=== PATIENT | male | born 1965 | race Hispanic/Latino ===

== ENCOUNTER 2019-09-13 15:23 | Observation (INO) | payer SELFPAY ==
[~2019-09-13] VITALS: Ht 162.6 cm; Wt 89.8 kg
--- NOTE | 2019-09-13 16:24 | Diagnostic Imaging Report ---
EXAMINATION: CHEST SINGLE (PORTABLE) INDICATION: Chest pain COMPARISON: None FINDINGS: AP view Low lung volumes with accentuation of the pulmonary vasculature and cardiac silhouette. Likely mild cardiomegaly. Fullness of the pulmonary vasculature suggests pulmonary venous congestion. No focal airspace consolidation. Questionable small right pleural effusion. No pneumothorax. No acute osseous abnormality. IMPRESSION: Findings suggestive of early heart failure. Signed by: Suraj Goodwin MD on 09/13/2019 4:20 PM
[2019-09-13 16:58] LABS: BASOPHILS % 0.6 % (0.0-1.0); EOSINOPHILS # (AUTO) 0.1 (0.0-0.4); HEMATOCRIT 32.8 % (38.2-49.6); HEMOGLOBIN 10.6 g/dL (14.0-18.0); LYMPHOCYTES % 29.5 % (18.0-39.1); MEAN CORPUSCULAR HGB CONC 32.3 g/dL (31-35); MEAN CORPUSCULAR VOLUME 92.9 fL (81-99); MONOCYTES # (AUTO) 0.7 (0.2-0.8); MONOCYTES % 10.5 % (4.4-11.3); NEUTROPHILS % 57.1 % (38.7-80.0); PLATELET COUNT 112 x10e3/uL (140-360); RED BLOOD COUNT 3.53 x10e6/uL (4.3-5.7); RED CELL DISTRIBUTION WIDTH 15.4 % (11.7-14.4)
[2019-09-13] MEDS ORDERED: ASPIRIN 81 MG CHEW TAB PO ONE (17:00)
[2019-09-13 17:04] LABS: BILIRUBIN,URINE NEGATIVE (NEGATIVE); CLARITY,URINE SL CLOUDY (CLEAR); COLOR,URINE YELLOW (YELLOW); KETONES,URINE NEGATIVE (NEGATIVE); LEUKOCYTE ESTERASE ,URINE NEGATIVE (NEGATIVE); NITRITE,URINE NEGATIVE (NEGATIVE); PROTEIN,URINE DIPSTICK TRACE (NEGATIVE); URINE UROBILINOGEN 0.2 mg/dL (0.2 - 1)
[2019-09-13 17:05] LABS: INR 1.24; PROTHROMBIN TIME 16.4 seconds (11.9-14.5)
[2019-09-13 17:06] LABS: PARTIAL THROMBOPLASTIN TIME 31.3 seconds (23.8-35.5)
[2019-09-13 17:15] LABS: BACTERIA,URINE RARE /HPF; RBC,URINE 0-5 /HPF (0-5)
[2019-09-13 17:15] LABS: ALBUMIN 3.9 g/dL (3.5-5.0); ALBUMIN/GLOBULIN RATIO 1.4 (0.8-2.0); ANION GAP 10.2 mmol/L (8-16); CALCIUM 8.9 mg/dL (8.4-10.2); CREATININE, SERUM 1.72 mg/dL (0.72-1.25); POTASSIUM 4.2 mmol/L (3.5-5.1)
--- NOTE | 2019-09-13 17:18 | NUR ---
patients rhythm on the cardiac montior shows multiple PVC's ER MD made aware. No action taken at this moment.
[2019-09-13 17:21] LABS: CREATINE KINASE MB 4.7 ng/mL (0-5.0)
--- OUTSIDE RECORDS SUMMARY | 2019-09-13 17:27 | XMS REPORT ---
Author Author [facility] Address Unknown Phone Unavailable Care Team Providers Care Can Intake Worker Name Role Phone ADRIEL DEY Unavailable Unavailable Problems This patient has no known problems. Allergies, Adverse Reactions, Alerts This patient has no known allergies or adverse reactions. Medications This patient has no known medications. Results Test Description Test Time Test Comments Text Results Atomic Results Result Comments CHEST SINGLE (PORTABLE) 2019-09-13 16:19:00 [place] [id number] Patient Name: CORINA KAUFMAN MR #: [id number] : 1965 Age/Sex: 54/M Req #: [id number] Adm Physician: Ordered by: STACI GALEANA TECHNOLOGY ADVISOR Report #: [id number] Location: ER Room/Bed: Procedure: [id number] DX/CHEST SINGLE (PORTABLE) Exam Date: Exam Time: REPORT STATUS: Signed EXAMINATION: CHEST SINGLE (PORTABLE) INDICATION: Chest pain COMPARISON: None FINDINGS: AP view Low lung volumes with accentuation of the pulmonary vasculature and cardiac silhouette. Likely mild cardiomegaly. Fullness of the pulmonary vasculature suggests pulmonary venous congestion. No focal airspace consolidation. Questionable small right pleural effusion. No pneumothorax. No acute osseous abnormality. IMPRESSION: Findings suggestive of early heart failure. Signed by: Lian Martin MD on 09/13/2019 4:20 PM Dictated By: LIAN MARTIN MD 19 Transcribed By: NAHED on 09/13/191619 COPY TO: STACI GALEANA NP
[2019-09-13 18:21] VITALS: BP 138/86
[2019-09-13 18:22] VITALS: BP 138/86
[2019-09-13] MEDS ORDERED: METOPROLOL PO (18:37)
[2019-09-13] MEDS: FUROSEMIDE INJ 10 MG/ML 4 ML VIAL IV SCH (19:43)
--- NOTE | 2019-09-13 19:44 | NUR ---
ADMINISTERED LASIX TO PATIENT ORDERED BY DR. PASCAL. NIGHT NURSE GIVEN PATIENT INFORMATION OBTAINED FROM ER NURSE. PATIENT IN STABLE CONDITION WITH NO S/S RESPIRATORY DISTRESS. CALL LIGHT IS WITHIN REACH, PATIENT INSTRUCTED TO CALL FOR ASSISTANCE NEEDED.
[2019-09-13 19:58] VITALS: BP 138/86
[2019-09-13 20:00] VITALS: BP 134/80
[2019-09-14] VITALS (9 sets, daily range): BP systolic 118–149; BP diastolic 69–85
--- NOTE | 2019-09-14 01:57 | NUR ---
RECEIVED PT IN BED AOX3 .RESPIRATIONS ARE EVEN AND UNLABORED TELE SHOWS BBB. IV 20G LEFT AC S/L BILATERAL LEGS AND SCROTUM SWOLLEN.DENIES PAIN /FAMILY AT THE BEDSIDE .CALL LIGHT WITH IN REACH .CONTINUE TO MONITOR
--- NOTE | 2019-09-14 02:25 | Consultation ---
DATE OF CONSULTATION: 09/13/2019 Cardiology Consultation REQUESTING PHYSICIAN: Amrik Atkins MD REASON FOR CONSULTATION: Shortness of breath. HISTORY OF PRESENT ILLNESS: This is a 54-year-old male with history of hypertension, who presents with complaints of shortness of breath. He reports he began noticing lower extremity swelling 3 months ago as well as dyspnea on exertion, which has been progressive since onset. In the last 2 weeks, he has noted occasional symptoms suggestive of paroxysmal nocturnal dyspnea. He denies any chest pain, orthopnea, palpitations, or lightheadedness. Due to the symptoms, he presented to the ER for further evaluation. Cardiology is consulted to evaluate for congestive heart failure. REVIEW OF SYSTEMS: Negative except as per HPI. PAST MEDICAL HISTORY: Hypertension. PAST SURGICAL HISTORY: Denies. ALLERGIES: PLEASE SEE EMR. MEDICATIONS: Please see medication list. SOCIAL HISTORY: He quit smoking last year. Previously smoked approximately 5 cigarettes a day for 20 years. No alcohol or illicit drugs. FAMILY HISTORY: Denies. PHYSICAL EXAMINATION: VITAL SIGNS: Temperature 95.9 degrees, pulse 76, respiratory rate 18, blood pressure 138/86, and oxygen saturation 95% on room air. GENERAL: Well-developed, well-nourished man, in no acute distress. HEENT: Normocephalic, atraumatic. Pupils are equal. No scleral icterus. NECK: Supple. No thyromegaly, cervical lymphadenopathy. No carotid bruits. LUNGS: Clear to auscultation bilaterally. No wheezes or crackles. CARDIOVASCULAR: Normal rate. Regular rhythm. No murmur. Normal S1, S2. ABDOMEN: Soft, nontender. EXTREMITIES: 3+ pitting edema. NEUROLOGIC: Nonfocal exam. LABORATORY DATA: WBC 6.92, hemoglobin 10.6, hematocrit 32.8, platelets 112. Sodium 134, potassium 4.2, chloride 102, CO2 of 26, BUN 26, and creatinine 1.72. BNP 549.6. EKG, normal sinus rhythm, normal ECG. Chest x-ray findings suggestive of early heart failure. IMPRESSION: 1. Congestive heart failure. 2. Acute kidney injury versus chronic kidney disease. 3. Hypertension. RECOMMENDATIONS: Start the patient on Lasix. Obtain echocardiogram. Monitor blood pressure closely. Keep patient on telemetry while admitted. Monitor creatinine. Replete electrolytes. Further recommendations pending test results. Thank you for this consult. We will continue to follow. MD ADITHYA Lewis/REGINALD /[id number]
[2019-09-14 02:31] LABS: CREATINE KINASE MB 3.9 ng/mL (0-5.0)
[2019-09-14 06:17] LABS: BASOPHILS % 0.4 % (0.0-1.0); EOSINOPHILS # (AUTO) 0.2 (0.0-0.4); EOSINOPHILS % 2.9 % (0.0-6.0); HEMOGLOBIN 10.9 g/dL (14.0-18.0); LYMPHOCYTES # (AUTO) 1.6 (1.0-3.2); LYMPHOCYTES % 28.8 % (18.0-39.1); MEAN CORPUSCULAR HEMOGLOBIN 30.4 pg (28-32); MEAN CORPUSCULAR VOLUME 92.2 fL (81-99); MONOCYTES # (AUTO) 0.7 (0.2-0.8); MONOCYTES % 12.3 % (4.4-11.3); NEUTROPHILS # (AUTO) 3.1 (2.1-6.9); NEUTROPHILS % 55.2 % (38.7-80.0); PLATELET COUNT 92 x10e3/uL (140-360); RED BLOOD COUNT 3.58 x10e6/uL (4.3-5.7); RED CELL DISTRIBUTION WIDTH 15.3 % (11.7-14.4)
--- NOTE | 2019-09-14 06:23 | NUR ---
PT RESTED DURING THE NIGHT ,DENIES PAIN BILATERAL LEGS AND SCROTUM SWOLLEN ,CALL LIGHT WITH IN REACH .CONTINUE TO MONITOR
[2019-09-14 06:36] LABS: ALBUMIN 3.6 g/dL (3.5-5.0); ALBUMIN/GLOBULIN RATIO 1.4 (0.8-2.0); CALCIUM 9.1 mg/dL (8.4-10.2); CREATININE, SERUM 1.66 mg/dL (0.72-1.25); MAGNESIUM 1.7 MG/DL (1.3-2.1)
--- NOTE | 2019-09-14 07:16 | NUR ---
BEDSIDE REPORT GIVEN TO THE ONCOMING NURSE
--- NOTE | 2019-09-14 07:20 | NUR ---
PATIENT IS AWAKE, ALERT, AND IN STABLE CONDITION WITH NO S/S RESPIRATORY DISTRESS. PATIENT DENIES PAIN. EDEMA NOTED TO BILATERAL LOWER EXTREMITIES- PITTING 4+. SCROTAL AREA IS EDEMATOUS. TELEMETRY APPLIED. DAUGHTER PRESENT IN ROOM. CALL LIGHT IS WITHIN REACH, PATIENT INSTRUCTED TO CALL FOR ASSISTANCE NEEDED.
[2019-09-14 08:03] LABS: FREE THYROXINE INDEX 2.7369 (1.4-3.8); THYROID STIMULATING HORMONE 1.9 uIU/mL (0.350-4.940)
[2019-09-14 08:52] LABS: PLATELET ESTIMATE MODERATELY DECREASED; PLATELET MORPHOLOGY COMMENT NORMAL; RBC MORPHOLOGY COMMENT NORMAL
[2019-09-14] MEDS: FUROSEMIDE INJ 10 MG/ML 4 ML VIAL IV SCH (08:58)
[2019-09-14] MEDS ORDERED: FUROSEMIDE INJ 10 MG/ML 4 ML VIAL IV SCH (09:00)
[2019-09-14 09:02] LABS: CHOL/HDL RATIO 4.8 (3.9-4.7)
[2019-09-14 09:59] LABS: CREATINE KINASE MB 3.4 ng/mL (0-5.0)
--- NOTE | 2019-09-14 10:24 | NUR ---
CALL PLACED OUT TO DR. PASCAL REGARDING EKG RESULTS- AWAITING CALLBACK.
--- NOTE | 2019-09-14 12:31 | Progress Note ---
DATE: 09/14/2019 Cardiology Progress Note SUBJECTIVE: The patient denies chest pain. He reports his shortness of breath is better. OBJECTIVE: VITAL SIGNS: Temperature 96.3 degrees, pulse 77, respiratory rate 17, blood pressure 135/74, oxygen saturation 96% on room air. GENERAL: Awake, alert, in no acute distress. LUNGS: Clear to auscultation bilaterally. No wheezes or crackles. CARDIOVASCULAR: Normal rate. Regular rhythm. No murmur. Normal S1, S2. ABDOMEN: Soft, nontender. EXTREMITIES: 3+ pitting edema. CARDIAC MEDICATIONS: Lasix 40 mg IV daily. LABORATORY DATA: Sodium 140, potassium 4, chloride 106, CO2 29, BUN 25, creatinine 1.66. WBC 5.6, hemoglobin 10.9, hematocrit 33, platelets 92. TELEMETRY: Personally reviewed, interpreted revealing normal sinus rhythm with PVCs. IMPRESSION: 1. Congestive heart failure. 2. Premature ventricular contractions. 3. Acute kidney injury versus chronic kidney disease. 4. Hypertension. RECOMMENDATIONS: The patient has been started on Lasix, creatinine is slightly better. Replete electrolytes. Echocardiogram has been done, however, images are not yet available for review. Maintain the patient on telemetry while admitted. Strict I and Os and daily weights. Further recommendations pending test results. Thank you for this consult. We will continue to follow. Barbara Gordon MD ABS/MODL /[id number]
--- NOTE | 2019-09-14 13:17 | History and Physical ---
HISTORY OF PRESENT ILLNESS: A 54-year-old gentleman comes in with shortness of breath and pedal edema. HISTORY OF PRESENT ILLNESS: Mr. Oli Ross, who started up with pedal edema in June, went to the clinic and was told that everything was okay. Blood work was done. IMAGING: EKG was done. The patient was sent home on the diuretic. The patient went back couple of days ago because the swelling was getting worse and the patient was told that he had a kidney problem and sent to the emergency room. PAST MEDICAL HISTORY: History of hypertension. MEDICATIONS: He takes at home are 100 mg of metoprolol on a daily basis. SURGICAL HISTORY: Noncontributory. FAMILY HISTORY: Noncontributory either. ALLERGIES: NO KNOWN ALLERGIES. REVIEW OF SYSTEMS: Positive for shortness of breath on exertion. Positive for fatigue. Positive for pedal edema. No chest pain. No nausea, vomiting, diarrhea, or constipation. No rectal bleeding. No hematochezia. No hematemesis either. No diplopia. No blurry vision and no history of polyuria, polydipsia, and chest pain. PHYSICAL EXAMINATION: VITAL SIGNS: Temperature is 96.0, pulse of 81, respirations of 18, blood pressure is 126/70, pulse oximeter of 93%. HEENT: Normocephalic, atraumatic. Pupils are reactive to light and accommodation. CVS: S1, S2 regular. ABDOMEN: Nontender, nondistended. EXTREMITIES: No clubbing. No cyanosis. Positive for 2+ edema with dermatitis in bilateral extremities. LABORATORY VALUES: White count is 5.60, hemoglobin of 10.9, hematocrit 33, RDW of 15.3. Chemistry shows sodium of 134 on arrival, BUN of 26, creatinine of 1.72, ALT and AST normal. Troponins have been trending of 0.070. BNP was 549.6. Coags were normal. Urine, cloudy, but no leuk esterase. IMAGING STUDY: Signs of early CHF present on chest x-ray. ASSESSMENT: 1. Mr. Oli Ross with possible acute on chronic congestive heart failure, systolic. 2. Acute on chronic renal failure. 3. Hypertension. 4. Morbid obesity. PLAN: 1. Continue monitoring the patient. The patient has been started and given IV Lasix dose once. 2. The patient will have an echocardiogram, which has not been done yet. 3. Continue with diuresis. We will give him another dose of Lasix. 4. Echocardiogram is pending. Cardiac consult with Dr. Gordon has been done. Further recommendation per clinical course. We will continue to monitor the patient with Cardiology and await echocardiogram. MD GALA Harris/MODL /[id number]
--- NOTE | 2019-09-14 17:15 | NUR ---
GAVE PACKET OF INFORMATION WITH COMMUNITY RESOURCES FOR ASSISTANCE WITH LOW TO NO INCOME TO PATIENT. RESOURCES THAT PATIENT MAY BE ABLE TO FOLLOW UP UPON DISCHARGE. PT EDUCATED ON EACH RESOURCE AND UNDERSTANDING HOW TO FOLLOW UP TO SEE IF QUALIFIED FOR EACH RESOURCE.
[2019-09-14 17:48] LABS: CREATINE KINASE MB 3.1 ng/mL (0-5.0)
--- NOTE | 2019-09-14 18:22 | NUR ---
Nutrition Screen Note RD Recommendation for Physician: -Continue cardiac diet Plan of Care: RD following, monitoring for tolerance and adequacy Nutrition reason for involvement: Diagnosis - CHF Primary Diagnose(s): CHF, PVCs PMH: HTN Ht: 64 in Wt:198 lb BMI: 34 kg/m2 IBW:[address] Assessment: (09/14/19) Chart reviewed. Labs and meds reviewed. Pt is a 54 year old male admitted with CHF. Pt is primarily Bel[place]ian speaking; therefore, family member translated information to the patient. Pt reports a good appetite and has been eating most of his meals. No weight loss reported. No N/V/D/C or chewing/swallowing issues. Pts family member requested low sodium diet information for the patient in which educational materials were provided. Will continue to monitor. Current Diet: cardiac Malnutrition Evaluation (09/14/19) The patient does not meet criteria for a specified degree of malnutrition at this time. Will re-evaluate at follow-up as appropriate. Diet Education Needs Assessment: Diet education indicated Learner(s): family member Barriers: No barriers identified Cultural/Language Modifications: Pt speaks Bel[place]ian. Handout was provided in Thai to family member at bedside who stated she will relay information to the patient. Readiness: Eager/acceptance Method: Explanation/Discussion/Handout Topics: low sodium Understanding/Compliance: Family member verbalized understanding and will relay diet education to the patient Nutrition Care Level: low Signed: Nina Tee, RD, LD
--- NOTE | 2019-09-14 19:17 | NUR ---
PATIENT IN STABLE CONDITION WITH NO S/S RESPIRATORY DISTRESS. NO PAIN VOICED. DAUGHTER PRESENT IN ROOM. CALL LIGHT IS WITHIN REACH, PATIENT INSTRUCTED TO CALL FOR ASSISTANCE NEEDED. BEDSIDE SHIFT REPORT GIVEN TO ONCOMING NURSE.
--- NOTE | 2019-09-14 20:30 | NUR ---
AAOX3.ASSESSMENT DONE.NO RESP.DISTRESS.BED LOCKED AND IN LOWEST POSITION.PHONE AND CALL LIGHT WITHIN REACH.INSTRUCTED TO CALL FOR ASSISTANCE NEEDED.BED ALARM ON.STABLE CONDITION.NO PAIN VOICED.AMBULATES.VOIDED.
[2019-09-15] VITALS: BP 126/73
[2019-09-15 04:00] VITALS: BP 121/66
--- NOTE | 2019-09-15 06:46 | NUR ---
Bedside shift report received from off going nurse. Patient is in stable condition. He is resting in bed, no acute distress noted. Daughter at bedside. Call light within reach. Bed in the lowest position.
--- NOTE | 2019-09-15 06:54 | NUR ---
BED SIDE SHIFT REPORT GIVEN TO ONCOMING RN.STABLE CONDITION.
[2019-09-15 07:08] LABS: BASOPHILS % 0.5 % (0.0-1.0); EOSINOPHILS # (AUTO) 0.2 (0.0-0.4); EOSINOPHILS % 2.7 % (0.0-6.0); HEMATOCRIT 34.9 % (38.2-49.6); HEMOGLOBIN 11.3 g/dL (14.0-18.0); LYMPHOCYTES # (AUTO) 1.5 (1.0-3.2); LYMPHOCYTES % 27.5 % (18.0-39.1); MEAN CORPUSCULAR HEMOGLOBIN 29.9 pg (28-32); MEAN CORPUSCULAR HGB CONC 32.4 g/dL (31-35); MEAN CORPUSCULAR VOLUME 92.3 fL (81-99); MONOCYTES # (AUTO) 0.7 (0.2-0.8); MONOCYTES % 13.1 % (4.4-11.3); NEUTROPHILS # (AUTO) 3.1 (2.1-6.9); NEUTROPHILS % 55.8 % (38.7-80.0); PLATELET COUNT 93 x10e3/uL (140-360); RED BLOOD COUNT 3.78 x10e6/uL (4.3-5.7); RED CELL DISTRIBUTION WIDTH 15.5 % (11.7-14.4)
[2019-09-15 07:24] LABS: ANION GAP 8.7 mmol/L (8-16); CALCIUM 9.1 mg/dL (8.4-10.2); CREATININE, SERUM 1.31 mg/dL (0.72-1.25); POTASSIUM 3.7 mmol/L (3.5-5.1)
[2019-09-15] MEDS: FUROSEMIDE INJ 10 MG/ML 4 ML VIAL IV SCH (08:00)
[2019-09-15 08:20] VITALS: BP 133/88
[2019-09-15 08:41] VITALS: BP 133/88
--- NOTE | 2019-09-15 09:21 | Progress Note ---
DATE: 09/15/2019 SUBJECTIVE: This is a 54-year-old gentleman with a history of shortness of breath and pedal edema, comes in, was found to have congestive heart failure and premature ventricular contractions. The patient had an echocardiogram done and EF shows about 40% to 45% concentric LVH and trace MR. MEDICATIONS: Currently IV diuretics 40 mg daily. OBJECTIVE: VITAL SIGNS: Temperature is 98.6, pulse of 97, respirations of 18, blood pressure is 121/66, and pulse oximetry of 97%. HEENT: Normocephalic and atraumatic. Pupils are reactive to light and accommodation. CVS: S1 and S2 normal. Regular rate and rhythm. ABDOMEN: Nontender and nondistended. EXTREMITIES: No clubbing, no cyanosis. Edema has gone down considerably. Dermatitis still present. LABORATORY VALUES: White count was normal, hemoglobin 10.9, and hematocrit of 33.0. Chemistries show BUN of 25 and creatinine of 1.66. Troponins have been trended to be negative. PLAN: Today would be to continue monitoring the patient. The patient can be discharged on IV Lasix and ARB or JOHANNA inhibitors. We will leave that up to Cardiology. Needs further testing as an outpatient basis. We will continue to monitor the patient with strict I's and O's and low-salt diet. Further recommendation per clinical course. The patient can be discharged today pending . MD GALA Harris/MODL /[id number]
[2019-09-15 12:13] VITALS: BP 154/94
[2019-09-15] MEDS ORDERED: FUROSEMIDE40 MG PO (15:29)
--- NOTE | 2019-09-15 16:00 | NUR ---
Received discharge order from Dr. Atkins/. Patient is in stable condition. IV line to left antecubital discontinued with tip intact, pressure applied to site, no bleeding noted. Discharge teaching provided to patient and daughter, they both verbalized understanding. Discharge folder with paperwork and prescriptions on hand. Patient refused wheelchair, accompanied to private auto by staff.
--- NOTE | 2019-09-15 19:53 | Progress Note ---
DATE: 09/15/2019 Cardiology Progress Note SUBJECTIVE: The patient denies chest pain or shortness of breath. OBJECTIVE: VITAL SIGNS: Temperature 96.2 degrees, pulse 90, respiratory rate 20, blood pressure 154/94, oxygen saturation 96% on room air. GENERAL: Awake, alert, in no acute distress. LUNGS: Clear to auscultation bilaterally. No wheeze or crackles. CARDIOVASCULAR: Normal rate. Regular rhythm. No murmur. Normal S1, S2. ABDOMEN: Soft, nontender. EXTREMITIES: 2+ pitting edema. CARDIAC MEDICATIONS: Furosemide 40 mg IV daily. LABORATORY DATA: WBC 5.5, hemoglobin 11.3, hematocrit 34.9, platelets 93. Sodium 141, potassium 3.7, chloride 104, CO2 32, BUN 20, creatinine 1.31. TELEMETRY: Personally reviewed and interpreted, revealing normal sinus rhythm. IMPRESSION: 1. Congestive heart failure. 2. Premature ventricular contractions. 3. Acute kidney injury versus chronic kidney disease. 4. Hypertension. RECOMMENDATIONS: The patient's volume status has improved with Lasix, although he remains volume overloaded clinically. He does not complain of chest pain or shortness of breath and he is not hypoxic on room air. He can complete diuresis as an outpatient. The patient was instructed that he needs to follow up next week for labs. Echocardiogram demonstrated normal LV systolic function, preserved LVEF, but pseudonormal LV filling. Discussed sodium restriction, fluid restriction and daily weights with the patient and family. Outpatient Holter to determine PVC burden. If significant, can discuss ischemic evaluation. Can perform ischemic evaluation as an outpatient as well. Thank you for this consult. We will continue to follow. Barbara Gordon MD ABS/MODL /[id number]
== END 2019-09-15 16:04 | disposition home or self-care (01) ==
LOC: ER 15:23 → ERHOLD 16:49 → MED/SURG3 18:13
PROVIDERS: ADMIT Family Medicine; ATTEND Family Medicine
DX: I13.0 Hypertensive heart and chronic kidney disease with heart failure and stage 1 through stage 4 chronic kidney disease, or unspecified chronic kidney disease (principal); I50.23 Acute on chronic systolic (congestive) heart failure; N18.9 Chronic kidney disease, unspecified; E66.01 Morbid (severe) obesity due to excess calories; Z68.34 Body mass index [BMI] 34.0-34.9, adult; N17.9 Acute kidney failure, unspecified; I49.3 Ventricular premature depolarization
CPT/HCPCS: 36415 ×2; 71045; 80048; 80053 ×2; 80061; 81001; 82550 ×2; 82553 ×2; 83735; 83880; 84436; 84443; 84479; 84484 ×2; 85025 ×3; 85610; 85730; 93005 ×2; 93306; 99284; G0378 ×3; J1940 ×3

== ENCOUNTER 2019-09-30 10:01 | Observation (INO) | payer OTHER ==
[~2019-09-30] VITALS: Ht 167.6 cm; Wt 93.9 kg
[~2019-09-30 10:01] MED LIST: FUROSEMIDE40 MG PO; METOPROLOL PO
[2019-09-30] MEDS ORDERED: SODIUM CHLORIDE 0.9% 500ML 500 ML IV STA ×2 (10:16→11:29)
[2019-09-30] MEDS ORDERED: MORPHINE SULFATE INJ 4 MG/ML INJ 1ML IV STA (10:16)
[2019-09-30] MEDS ORDERED: ONDANSETRON HCL INJ 2MG/ML 2ML 2 MG/ML VIAL IV STA (10:16)
[2019-09-30] MEDS ORDERED: DIATRIZOATE MEGL/DIATRIZOA SOD 30 ML BTL PO ONE (10:32)
[2019-09-30 10:44] LABS: BASOPHILS % 0.5 % (0.0-1.0); EOSINOPHILS # (AUTO) 0.1 (0.0-0.4); EOSINOPHILS % 0.9 % (0.0-6.0); HEMATOCRIT 38.8 % (38.2-49.6); HEMOGLOBIN 13.1 g/dL (14.0-18.0); LYMPHOCYTES # (AUTO) 1.5 (1.0-3.2); LYMPHOCYTES % 18.5 % (18.0-39.1); MEAN CORPUSCULAR HGB CONC 33.8 g/dL (31-35); MONOCYTES # (AUTO) 0.7 (0.2-0.8); MONOCYTES % 8.4 % (4.4-11.3); NEUTROPHILS # (AUTO) 5.6 (2.1-6.9); NEUTROPHILS % 71.2 % (38.7-80.0); PLATELET COUNT 124 x10e3/uL (140-360); RED BLOOD COUNT 4.36 x10e6/uL (4.3-5.7); RED CELL DISTRIBUTION WIDTH 14.1 % (11.7-14.4)
[2019-09-30 10:49] LABS: CLARITY,URINE CLEAR (CLEAR); COLOR,URINE YELLOW (YELLOW); KETONES,URINE NEGATIVE (NEGATIVE); LEUKOCYTE ESTERASE ,URINE NEGATIVE (NEGATIVE); NITRITE,URINE NEGATIVE (NEGATIVE); PROTEIN,URINE DIPSTICK 2+ (NEGATIVE)
[2019-09-30 10:50] LABS: BILIRUBIN,URINE NEGATIVE (NEGATIVE); URINE UROBILINOGEN 0.2 mg/dL (0.2 - 1)
[2019-09-30 11:02] LABS: ALBUMIN 4.3 g/dL (3.5-5.0); ALBUMIN/GLOBULIN RATIO 1.3 (0.8-2.0); CALCIUM 10.1 mg/dL (8.4-10.2); CREATININE, SERUM 3.77 mg/dL (0.72-1.25)
[2019-09-30 11:08] LABS: BACTERIA,URINE RARE /HPF; EPITHELIAL CELLS,URINE FEW /LPF
[2019-09-30] MEDS ORDERED: CEFTRIAXONE SOD 1 GM/NS 50 ML 50 ML IV ONE (13:00)
--- NOTE | 2019-09-30 13:32 | Diagnostic Imaging Report ---
EXAM: CT Abdomen and Pelvis WITHOUT contrast INDICATION: Abdominal pain. COMPARISON: None. TECHNIQUE: Abdomen and pelvis were scanned utilizing a multidetector helical scanner from the lung base to the pubic symphysis without administration of IV contrast. Absence of intravenous contrast decreases sensitivity for detection of focal lesions and vascular pathology. Coronal and sagittal reformations were obtained. Routine protocol was performed. IV CONTRAST: None. ORAL CONTRAST: Gastrografin water mixture. RADIATION DOSE: Total DLP: 767.72 mGy*cm Estimated effective dose: (DLP x 0.015 x size factor) mSv COMPLICATIONS: None FINDINGS: LINES and TUBES: None. LOWER THORAX: There is bibasilar atelectasis. HEPATOBILIARY: Nodular hepatic contour. No focal hepatic lesions. No biliary ductal dilation. GALLBLADDER: The gallbladder is hydropic measuring 14.2 x 6.4 cm. Mildly high attenuation gallbladder content suggestive of sludge. No wall thickening. SPLEEN: Mildly enlarged measuring 14.2 cm in craniocaudal dimension. PANCREAS: No focal masses or ductal dilatation. ADRENALS: No adrenal nodules KIDNEYS/URETERS: No hydronephrosis. No cystic or solid mass lesions. No stones. Bilateral perinephric stranding. GI TRACT: No abnormal distention, wall thickening, or evidence of bowel obstruction. There are diverticula within the colon without evidence of diverticulitis. Appendix is normal. PELVIC ORGANS/BLADDER: The prostate is mildly enlarged measuring 4.9 x 3.9 cm. LYMPH NODES: No lymphadenopathy. VESSELS: There is mild atherosclerotic disease in the aorta and major arterial branches. PERITONEUM / RETROPERITONEUM: There is mild diffuse increased density of the peritoneal fat. BONES: There are degenerative changes in the lumbar spine. SOFT TISSUES: Unremarkable. IMPRESSION: 1. Markedly hydropic gallbladder. Correlate for right upper quadrant pain. If clinical concern for cholecystitis, consider ultrasound of gallbladder. 2. Cirrhotic hepatic morphology. 3. Mild splenomegaly. 4. Mild diverticulosis without acute diverticulitis. Signed by: Dr. David Weaver M.D. on 09/30/2019 1:28 PM
[2019-09-30] MEDS ORDERED: MORPHINE SULFATE INJ 4 MG/ML INJ 1ML IV PRN (13:45)
[2019-09-30] MEDS ORDERED: ONDANSETRON HCL INJ 2MG/ML 2ML 2 MG/ML VIAL IV PRN (13:45)
[2019-09-30] MEDS ORDERED: ATORVASTATIN CA10 MG PO (14:36)
[2019-09-30] MEDS: CEFTRIAXONE SOD 1 GM/NS 50 ML 50 ML IV SCH (15:02)
[2019-09-30 15:35] VITALS: BP 121/72
[2019-09-30 15:46] VITALS: BP 121/72
[2019-09-30] MEDS: SODIUM CHLORIDE 0.9% 1000ML 1,000 ML IV SCH (18:35)
[2019-09-30 19:11] LABS: CREATINE KINASE MB 7.2 ng/mL (0-5.0)
[2019-09-30 20:00] VITALS: BP 106/58
[2019-09-30 22:06] VITALS: BP 106/58
[2019-10-01] VITALS (8 sets, daily range): BP systolic 88–126; BP diastolic 56–65
[2019-10-01] MEDS: CEFTRIAXONE SOD 1 GM/NS 50 ML 50 ML IV SCH ×2 (02:45→14:37)
[2019-10-01 05:56] LABS: BASOPHILS % 0.6 % (0.0-1.0); EOSINOPHILS # (AUTO) 0.1 (0.0-0.4); HEMATOCRIT 34.3 % (38.2-49.6); HEMOGLOBIN 11.3 g/dL (14.0-18.0); LYMPHOCYTES # (AUTO) 2.1 (1.0-3.2); LYMPHOCYTES % 29.5 % (18.0-39.1); MEAN CORPUSCULAR HEMOGLOBIN 29.7 pg (28-32); MEAN CORPUSCULAR HGB CONC 32.9 g/dL (31-35); MONOCYTES # (AUTO) 0.8 (0.2-0.8); MONOCYTES % 10.9 % (4.4-11.3); NEUTROPHILS % 56.7 % (38.7-80.0); PLATELET COUNT 101 x10e3/uL (140-360); RED BLOOD COUNT 3.81 x10e6/uL (4.3-5.7); RED CELL DISTRIBUTION WIDTH 14.2 % (11.7-14.4)
[2019-10-01 06:18] LABS: ALBUMIN 3.6 g/dL (3.5-5.0); ALBUMIN/GLOBULIN RATIO 1.3 (0.8-2.0); ANION GAP 13.3 mmol/L (8-16); CALCIUM 9.1 mg/dL (8.4-10.2); CREATININE, SERUM 3.14 mg/dL (0.72-1.25); POTASSIUM 4.3 mmol/L (3.5-5.1)
[2019-10-01] MEDS: SODIUM CHLORIDE 0.9% 1000ML 1,000 ML IV SCH (06:18)
[2019-10-01 06:40] LABS: CREATINE KINASE MB 3.8 ng/mL (0-5.0)
--- NOTE | 2019-10-01 07:08 | Consultation ---
DATE OF CONSULTATION: 10/01/2019 HISTORY OF PRESENT ILLNESS: The patient is a 54-year-old male, who presents with complaints of right lower quadrant abdominal pain, right groin pain. Said he had some associated nausea. Also said the pain is gone now. He is evaluated with CT scan of the abdomen and pelvis, which revealed very distended gallbladder with no other abnormalities. The patient has been found to have elevated BUN and creatinine, also a change on CT suggestive of cirrhosis of the liver. PAST MEDICAL HISTORY: Significant for hypertension, hyperlipidemia, congestive heart failure. MEDICATIONS: At home are atorvastatin, Lasix, and metoprolol. ALLERGIES: HE HAS NO KNOWN ALLERGIES. PAST SURGICAL HISTORY: He has not had a previous surgery. FAMILY HISTORY: Significant for diabetes, hypertension, and cardiac disease. SOCIAL HISTORY: The patient admits to smoking cigarettes, drinking alcohol. REVIEW OF SYSTEMS: As stated above, otherwise was negative. He has not had any fever or weight loss. PHYSICAL EXAMINATION: GENERAL: The patient is awake and alert, in no distress. VITAL SIGNS: Normal. He is afebrile. HEENT: Sclerae are nonicteric. NECK: Supple. No masses. LUNGS: Equal breath sounds are clear bilaterally. CARDIAC: Regular rate and rhythm with no murmur. ABDOMEN: Soft. There is no tenderness, no mass, no distention. No organomegaly. EXTREMITIES: Have no edema. NEUROLOGIC: Grossly intact. LABORATORY TESTS: White blood cell count is normal. Differential is normal. Chemistries revealed elevated BUN, which was 64 on admission. Creatinine is 3.77. ASSESSMENT/PLAN: A 54-year-old male with what appears to be acute renal failure, which is improving now with abnormal gallbladder on imaging. I agree with the plan for HIDA scan. There are no signs of acute surgical abdomen, no findings that would warrant immediate surgical intervention. Thank you for asking me to see Mr. Ross. MD TEE Bedoya/REGINALD /[id number]
--- NOTE | 2019-10-01 07:34 | History and Physical ---
HISTORY OF PRESENT ILLNESS: The patient is a 54-year-old gentleman who came in with abdominal pain. The patient was recently admitted to the hospital with a history of congestive heart failure, started on Lasix 40 mg twice a day. The patient had adequate diuresis. The patient has lost a lot of weight, however, creatinine was trending high. Abdominal pain, gallbladder did show a distended gallbladder and also a cirrhotic liver. The patient was admitted for acute on chronic renal failure and congestive heart failure. PAST MEDICAL HISTORY: History of hypertension, history of hyperlipidemia, history of CHF and history of increased weight gain. PAST SURGICAL HISTORY: Noncontributory. REVIEW OF SYSTEMS: Negative for chest pain. Positive for abdominal pain. No shortness of breath. No nausea, no vomiting. No diarrhea. No constipation. No rectal bleeding. The patient had decrease in weight, which is secondary to the Lasix and also increased diuresis. No diplopia. No blurry vision. No paresthesias, no hyperesthesias. SOCIAL HISTORY: Apparently, the patient used to drink about a six pack of beer every other day, stopped about eight months ago, currently uses not drink. PHYSICAL EXAMINATION: VITAL SIGNS: Temperature is 96.4, pulse of 80, respirations of 18, blood pressure is 88/62, pulse oximetry 93% on room air. HEENT: Normocephalic, atraumatic. Pupils are reactive. No icterus present. CVS: S1 and S2 normal. Regular rate and rhythm. ABDOMEN: Tender in the right upper quadrant and also on the left lower quadrant. EXTREMITIES: No clubbing, no cyanosis. Trace edema is still present. LABORATORY VALUES: Initial white count is 7.88, hemoglobin of 13.1, hematocrit of 38.8. Chemistries show sodium of 134, potassium of 5, chloride 93, BUN was 64, creatinine of 3.77, EGFR 17. Urine showed white count of 11 to 20, rbc's 11-20, 2+ protein. CT of the abdomen shows: 1. Marked hydropic gallbladder. 2. Cirrhotic hepatic morphology. 3. Splenomegaly and mild diverticulosis without acute diverticulitis. ASSESSMENT: Mr. Oli Ross with: 1. Acute on chronic renal failure. 2. Congestive heart failure. 3. Hypertension. 4. History of alcohol intake with cirrhosis of the liver and portal hypertension. PLAN: The patient was supposed to see Renal and Cardiology as an outpatient basis. Did see me in about 2 days prior to this admission. The creatinine was about 2, went up to 3. Plan will also be to do a HIDA scan and ultrasound, which has been ordered by Dr. Fontenot, consult with Dr. López has been obtained and also a consult with Dr. Jimenez, she will be obtained for his congestive heart failure. Further recommendation per clinical course. We will continue monitoring his electrolytes and continue hydrating him at 75 mL an hour of normal saline. MD GALA Harris/MODL /[id number]
--- NOTE | 2019-10-01 09:54 | Diagnostic Imaging Report ---
EXAM: Right upper quadrant abdominal ultrasound INDICATION: Right upper quadrant pain COMPARISON: CT abdomen pelvis of 09/30/2019 TECHNIQUE: Transverse and longitudinal images of the right upper quadrant abdomen were obtained FINDINGS: Liver: Size: 14.2 cm in the right midclavicular line, normal Appearance: Normal echogenicity, nodular contour Mass: No focal masses Gallbladder: The gallbladder is distended, measuring up to 13.1 x 6.1 cm. There is sludge within the gallbladder. No gallstones. No gallbladder wall thickening or pericholecystic fluid. Gallbladder wall measures up to 2 mm. Negative sonographic Barahona's sign. Bile Ducts: Intrahepatic Ducts: No dilatation Extrahepatic Ducts: Common bile duct measures 4 mm Pancreas: Visualized portions of the pancreatic head, neck and proximal body are normal. Kidney: The right kidney measures 9.8 cm without evidence of hydronephrosis or stone. Vessels: Aorta: Visualized portions are normal Inferior Vena Cava: Visualized portions are normal Main Portal Vein: 1.1 cm, normal size with hepatopetal flow. Free Fluid: No ascites or pleural effusion IMPRESSION: Sludge in the distended gallbladder. No specific sonographic evidence of cholecystitis. Mildly nodular liver surface contour can be seen in early cirrhosis. Signed by: Erinn Dominguez MD on 10/01/2019 9:50 AM
--- NOTE | 2019-10-01 14:50 | Consultation ---
DATE OF CONSULTATION: 10/01/2019 HISTORY OF PRESENT ILLNESS: Mr. Cody Baird is a 54-year-old gentleman with underlying history of hypertension, recent diagnosis of congestive heart failure, was placed on high-dose diuretics, presented because of lower extremity edema at this time with abdominal pain, has been evaluated for possible cholecystitis. CTs showed a marked hydropic gallbladder with concern for cholecystitis, liver cirrhosis, mild splenomegaly, mild diverticulosis. There was no hydronephrosis noted on kidney ultrasound. This exam was done without contrast. Renal has been consulted because of abnormal kidney function. He is just status post HIDA scan. Currently sitting up, Ethiopian speaking only. Most of the history, translation, explanation, and exam was done with the help of the patient's daughter, who is fluent in both Icelandic and Ethiopian. The patient denies any history of prior renal insufficiency, however, there was recent documentation on his last admission that he had chronic kidney disease. Nevertheless, his lab show white count 7 and hemoglobin 11.3. Chemistry; sodium 136, potassium 4.3, bicarbonate 28, anion gap 13, BUN 60, creatinine 3.14, and total bilirubin 0.7. LFTs within normal range. Urinalysis; specific gravity 1.020, 11-20 rbc's, and 11-20 wbc's. SOCIAL HISTORY: The patient quit smoking and drinking about 8 months ago. FAMILY HISTORY: Significant for hypertension. The patient denies history of any prostate problem, kidney stones, or diabetes. ALLERGIES: NO APPARENT DRUG ALLERGIES. CURRENT MEDICATIONS: Please see MAR for detail. He is on: 1. Ceftriaxone 1 g IV every 12 hours. 2. Normal saline 75 mL an hour. 3. Morphine sulfate. 4. Ondansetron. PHYSICAL EXAMINATION: GENERAL: The patient is awake, alert, oriented x3, sitting up in no apparent distress. VITAL SIGNS: Has a blood pressure of 101/56, pulse rate 77, afebrile, oxygen saturation 94%, and respiratory rate 18. HEAD AND NECK: Cornea clear. Oral mucosa moist. LUNGS: Relatively clear. No rales. HEART: S1 and S2 audible. ABDOMEN: Otherwise, soft and nontender. EXTREMITIES: Lower extremity, trace ankle edema. IMPRESSION AND PLAN: Acute on chronic kidney failure in a patient with possible cholecystitis, underlying cirrhosis, mild splenomegaly, prior history of alcohol and tobacco use. Etiology of renal insufficiency, multifactorial, most likely acute on chronic kidney failure. Chronic kidney disease 3 due to hypertensive nephrosclerosis, likely stage 4, which we will have to determine that later as an outpatient. In the meantime, I will order preliminary test, kidney ultrasound, spot urine protein creatinine ratio. Repeat urinalysis. JOSE montilla. Medications reviewed. Dr. Fontenot has seen the patient. I will discuss with him as far as plans are concern. Please see orders discussed with daughter and the patient. MD JAY Mckoy/REGINALD /[id number]
--- NOTE | 2019-10-01 15:26 | Consultation ---
DATE OF CONSULTATION: 10/01/2019 Cardiology Consultation REQUESTING PHYSICIAN: Dr. Atkins. REASON FOR CONSULTATION: Congestive heart failure. HISTORY OF PRESENT ILLNESS: This is a 54-year-old male with history of hypertension, heart failure with preserved ejection fraction and PVCs, who presents with complaints of abdominal pain. The patient was recently discharged from [facility] after being admitted for acute on chronic diastolic heart failure. He states he had been doing until 4 a.m. on Tuesday when he developed right-sided abdominal pain 7-8/10 in severity, lasting hours at a time. He describes the pain as sharp without associated nausea. He did not notice any change with oral intake. He denied any chest pain, shortness of breath, edema, orthopnea, PND, or palpitations. REVIEW OF SYSTEMS: Negative except as per HPI. PAST MEDICAL HISTORY: 1. Heart failure with preserved ejection fraction. 2. Hypertension. 3. PVCs. 4. Chronic kidney disease. PAST SURGICAL HISTORY: Denies. ALLERGIES: PLEASE SEE EMR. MEDICATIONS: Please see medication list. SOCIAL HISTORY: Quit smoking last year. Previously smoked approximately 5 cigarettes a day for 20 years. No alcohol or illicit drugs. FAMILY HISTORY: Noncontributory to current illness. PHYSICAL EXAMINATION: VITAL SIGNS: Temperature 96.7 degrees, pulse 77, respiratory rate 18, blood pressure 101/56, oxygen saturation 94% on room air. GENERAL: Awake, alert, in no acute distress. Well-developed, well-nourished. HEENT: Normocephalic, atraumatic. Pupils are equal. No scleral icterus. NECK: Supple. No thyromegaly or cervical lymphadenopathy. No carotid bruits. LUNGS: Clear to auscultation bilaterally. No wheezes or crackles. CARDIOVASCULAR: Normal rate. Regular rhythm. No murmur. Normal S1 and S2. ABDOMEN: Soft, nondistended. EXTREMITIES: No edema. NEUROLOGIC: Nonfocal exam. LABORATORY DATA: Sodium 136, potassium 4.3, chloride 99, CO2 of 28, BUN 6, creatinine 3.14. Troponin 0.140. WBC 7.08, hemoglobin 11.3, hematocrit 34.3, platelets 101. TELEMETRY: Normal sinus rhythm. IMPRESSION: 1. Beawp-yb-gnjsudr kidney disease. 2. Abdominal pain. 3. Heart failure with preserved ejection fraction. 4. Hypertension. 5. PVCs. RECOMMENDATIONS: Hold diuretics. Check BNP. Suspect the patient may have been over diuresed. Continue home atorvastatin and metoprolol. HIDA scan is pending. Monitor patient closely on telemetry. Further recommendations pending clinical course. Thank you for this consult. We will continue to follow. Barbara Gordon MD ABS/MODL /[id number]
[2019-10-01 16:16] LABS: BILIRUBIN,URINE NEGATIVE (NEGATIVE); CLARITY,URINE CLEAR (CLEAR); COLOR,URINE YELLOW (YELLOW); KETONES,URINE NEGATIVE (NEGATIVE); LEUKOCYTE ESTERASE ,URINE NEGATIVE (NEGATIVE); NITRITE,URINE NEGATIVE (NEGATIVE); PROTEIN,URINE DIPSTICK 1+ (NEGATIVE); URINE UROBILINOGEN 0.2 mg/dL (0.2 - 1)
[2019-10-01 16:21] LABS: WBC,URINE (MAN) 0-5 /HPF (0-5)
[2019-10-01 16:22] LABS: EPITHELIAL CELLS,URINE RARE /LPF
[2019-10-01 16:34] LABS: CREATININE,URINE RANDOM 65.16 mg/dL (63-166); TOTAL PROTEIN, URINE 36.1 mg/dL (1-14)
[2019-10-01] MEDS ORDERED: METOPROLOL TAR100 MG PO (17:08)
--- NOTE | 2019-10-01 17:26 | Diagnostic Imaging Report ---
Hepatobiliary Scan with Gallbladder Ejection Fraction Clinical information: R10.11 RUQ pain Technique: Following intravenous administration of 6.6 millicuries of Tc-99m mebrofenin, dynamic images of the abdomen in the anterior projection were obtained through 60 minutes. Sincalide (CCK analog) 1.9 micrograms was administered intravenously over 30 minutes with additional imaging for determination of gallbladder ejection fraction. Discussion: Perfusion of the liver is normal. Extraction of tracer by the liver parenchyma is normal. Tracer appears promptly within the biliary tract. The gallbladder begins to fill by 16 minutes post injection of tracer and fills adequately. Tracer is seen in the small bowel during the sincalide infusion. The gallbladder ejection fraction with sincalide is 8% (normal greater than 40%). Impression: 1. Filling of the gallbladder excludes acute cystic duct obstruction/acute cholecystitis. 2. The decreased gallbladder ejection fraction of 8% supports the clinical diagnosis of chronic cholecystitis/gallbladder dyskinesia. Signed by: Dr. Anabelle Sandoval M.D. on 10/01/2019 5:23 PM
--- NOTE | 2019-10-01 19:59 | Diagnostic Imaging Report ---
EXAM: Retroperitoneal Ultrasound INDICATION: hira COMPARISON: None TECHNIQUE: Transverse and longitudinal images of the kidneys and bladder were obtained. FINDINGS: Right Kidney: Size: 9.1 cm Echogenicity: Normal Parenchymal thickness: Normal Collecting system: No hydronephrosis Stones: None Cyst/Mass: None Left Kidney: Size: 9.9 cm Echogenicity: Normal Parenchymal thickness: Normal Collecting system: No hydronephrosis Stones: None Cyst/Mass: None Bladder: Normal Prostate measures 12.7 x 2.9 x 4.0 cm total volume of 13.2 cc IMPRESSION: No nephroureterolithiasis or hydronephrosis. Signed by: Maury Harman MD on 10/01/2019 7:55 PM
[2019-10-01] MEDS: ATORVASTATIN 10 MG TAB PO SCH (21:00)
[2019-10-02] VITALS (7 sets, daily range): BP systolic 117–123; BP diastolic 60–78
[2019-10-02] MEDS: CEFTRIAXONE SOD 1 GM/NS 50 ML 50 ML IV SCH ×2 (02:45→14:12)
[2019-10-02 06:52] LABS: BASOPHILS % 0.4 % (0.0-1.0); EOSINOPHILS # (AUTO) 0.2 (0.0-0.4); EOSINOPHILS % 2.7 % (0.0-6.0); HEMATOCRIT 37.4 % (38.2-49.6); HEMOGLOBIN 12.5 g/dL (14.0-18.0); LYMPHOCYTES % 37.2 % (18.0-39.1); MEAN CORPUSCULAR HEMOGLOBIN 30.2 pg (28-32); MEAN CORPUSCULAR HGB CONC 33.4 g/dL (31-35); MEAN CORPUSCULAR VOLUME 90.3 fL (81-99); MONOCYTES # (AUTO) 0.7 (0.2-0.8); NEUTROPHILS # (AUTO) 2.6 (2.1-6.9); NEUTROPHILS % 47.5 % (38.7-80.0); PLATELET COUNT 92 x10e3/uL (140-360); RED BLOOD COUNT 4.14 x10e6/uL (4.3-5.7)
--- NOTE | 2019-10-02 07:04 | Progress Note ---
DATE: SUBJECTIVE: The patient is a 54-year-old male, who comes in with abdominal pain. The patient also had acute renal failure, possible diuresis. The patient also had loss of urine and is currently on antibiotic. Currently, the patient is chest pain-free. No shortness of breath and no abdominal pain. Seen by Renal, Cardiology, and also by Dr. Fontenot. HIDA scan has been done. The patient shows an EF of , but ultrasound showed sludge. OBJECTIVE: VITAL SIGNS: Temperature is 97.6, pulse of 86, respirations of 18, blood pressure is 119/60, pulse oximetry of 96%. HEENT: Normocephalic and atraumatic. Pupils are reactive to light and accommodation. CVS: S1 and S2 normal. HEART: Regular rate and rhythm. ABDOMEN: Nontender and nondistended. EXTREMITIES: Positive for JOSE hoses and positive for 1+ pitting edema. LABORATORY VALUES: White count yesterday was 7.0. Chemistries still pending for today. BUN was 16, creatinine of 3.14 yesterday. Urine wbc's 0.5. IMAGING STUDIES: Renal ultrasound shows prostate is normal. No nephrolithiasis and no hydronephrosis. Normal parenchyma of the kidney. ASSESSMENT: Mr. Oli Ross with: 1. Acute on chronic kidney injury. 2. Chronic congestive heart failure. 3. Gallbladder cholecystitis. PLAN: Continue current management. Hold off on diuresis. Awaiting blood work today. We will decide on diuretics depending on progression. Further recommendation per clinical course. I thank Cardiology, Nephrology, and Surgery. MD GALA Harris/MODL /[id number]
[2019-10-02 07:22] LABS: ALBUMIN 3.6 g/dL (3.5-5.0); ALBUMIN/GLOBULIN RATIO 1.2 (0.8-2.0); ANION GAP 11.3 mmol/L (8-16); CALCIUM 9.4 mg/dL (8.4-10.2); CREATININE, SERUM 2.23 mg/dL (0.72-1.25); POTASSIUM 4.3 mmol/L (3.5-5.1)
--- NOTE | 2019-10-02 15:55 | Progress Note ---
DATE: 10/02/2019 Cardiology Progress Note SUBJECTIVE: The patient denies chest pain or shortness of breath. PHYSICAL EXAMINATION: VITAL SIGNS: Temperature 96.9 degrees, pulse 89, respiratory rate 18, blood pressure 122/78, and oxygen saturation 94% on room air. GENERAL: Awake, alert, in no acute distress. LUNGS: Clear to auscultation bilaterally. No wheezes or crackles. CARDIOVASCULAR: Normal rate and regular rhythm. No murmur. Normal S1 and S2. ABDOMEN: Soft and nontender. EXTREMITIES: No edema. CARDIAC MEDICATIONS: Atorvastatin 10 mg p.o. at bedtime. LABORATORY DATA: WBC 5.48, hemoglobin 12.5, hematocrit 37.4, and platelets 92. Sodium 139, potassium 4.3, chloride 104, CO2 of 28, BUN 45, and creatinine 2.23. Telemetry was personally reviewed and interpreted revealing normal sinus rhythm. IMPRESSION: 1. Acute on chronic kidney disease. 2. Abdominal pain. 3. Heart failure with preserved ejection fraction. 4. Hypertension. 5. Premature ventricular contractions. RECOMMENDATIONS: Continue to hold diuretics. Suspect the patient is volume depleted secondary to diuretic use. Continue low-sodium diet. Monitor volume status closely. Monitor the patient on telemetry while admitted. Continue atorvastatin. Resume metoprolol if blood pressure remains stable. No further cardiac evaluation is indicated at this time. Note findings of HIDA scan. Defer decision regarding surgery to primary. Thank you for this consult. We will continue to follow. Barbara Gordon MD ABS/MODL /[id number]
[2019-10-02] MEDS: ATORVASTATIN 10 MG TAB PO SCH (20:35)
[2019-10-03] VITALS: BP 120/71
[2019-10-03] MEDS: CEFTRIAXONE SOD 1 GM/NS 50 ML 50 ML IV SCH (02:45)
[2019-10-03 04:00] VITALS: BP 129/70
[2019-10-03 06:34] LABS: ALBUMIN 3.6 g/dL (3.5-5.0); ALBUMIN/GLOBULIN RATIO 1.3 (0.8-2.0); ANION GAP 12.3 mmol/L (8-16); CALCIUM 9.4 mg/dL (8.4-10.2); CREATININE, SERUM 1.87 mg/dL (0.72-1.25); POTASSIUM 4.3 mmol/L (3.5-5.1)
[2019-10-03 08:07] VITALS: BP 136/86
--- NOTE | 2019-10-03 10:33 | Progress Note ---
DATE: SUBJECTIVE: The patient is a 54-year-old gentleman with cirrhosis of the liver with hcaoq-hm-clwopqx congestive heart failure, volume depletion, and jopsp-qo-egikndy renal failure. The patient's medications at this time, atorvastatin and Rocephin. The patient is getting morphine as needed and Zofran as needed too. OBJECTIVE: VITAL SIGNS: Temperature is 97, pulse of 88, respirations of 20, and blood pressure is 129/70. HEENT: Normocephalic and atraumatic. Pupils are reactive. CVS: S1 and S2 normal. Regular rate and rhythm. LUNGS: Clear. ABDOMEN: Nontender and nondistended. EXTREMITIES: No clubbing. No cyanosis. for edema. The patient has JOSE hoses. LABORATORY VALUES: Chemistries today, BUN of 37, creatinine of 1.87, which is baseline. GFR of 38. Urine so far negative. ASSESSMENT: Mr. Oli Ross with: 1. Volume depletion. 2. Jhjlg-wt-lnipopb renal failure. 3. Nbtut-hc-pcpuwsz congestive heart failure. 4. Cirrhosis of liver. 5. History of alcoholic intake. PLAN: We will continue the patient on metoprolol restart. We will stop the IV antibiotics and for his hypertension, we will hold back and cut back on the diuresis and will leave this up to the auto body man. Further recommendation per clinical course. The patient does not require surgery. HIDA scan was abnormal, but no requirement of surgery at this time. MD GALA Harris/MODL /[id number]
[2019-10-03 12:39] VITALS: BP 131/75
[2019-10-03 15:42] VITALS: BP 129/78
--- NOTE | 2019-10-03 16:48 | Progress Note ---
DATE: 10/03/2019 Cardiology Progress Note SUBJECTIVE: The patient denies chest pain or shortness of breath. OBJECTIVE: VITAL SIGNS: Temperature 96.2 degrees, pulse 78, respiratory rate 20, blood pressure 129/70, and oxygen saturation 98% on room air. GENERAL: Awake, alert, in no acute distress. LUNGS: Clear to auscultation bilaterally. No wheezes or crackles. CARDIOVASCULAR: Normal rate, regular rhythm. No murmur. Normal S1, S2. ABDOMEN: Soft, nontender. EXTREMITIES: No edema. CARDIAC MEDICATIONS: Atorvastatin 10 mg p.o. at bedtime. LABORATORY DATA: Sodium 141, potassium 4.3, chloride 107, CO2 of 26, BUN 37, and creatinine 1.87. TELEMETRY: Normal sinus rhythm next. IMPRESSION: 1. Acute on chronic kidney disease. 2. Abdominal pain. 3. Heart failure with preserved ejection fraction. 4. Hypertension. 5. Premature ventricular contractions. RECOMMENDATIONS: The patient's creatinine continues to improve. Keep the patient off diuretics on discharge. Continue sodium and fluid restriction otherwise. Monitor volume status closely. The patient's metoprolol can be resumed. Continue atorvastatin. No further cardiac evaluation is indicated at this time. Thank you for this consult. We will continue to follow. Barbara Gordon MD ABS/MODL /[id number]
== END 2019-10-03 15:58 | disposition home or self-care (01) ==
LOC: ER 10:01 → ERHOLD 13:43 → MED/SURG3 15:12
PROVIDERS: ADMIT Family Medicine; ATTEND Family Medicine
DX: N17.9 Acute kidney failure, unspecified (principal); N30.00 Acute cystitis without hematuria; E78.5 Hyperlipidemia, unspecified; I13.0 Hypertensive heart and chronic kidney disease with heart failure and stage 1 through stage 4 chronic kidney disease, or unspecified chronic kidney disease; I50.33 Acute on chronic diastolic (congestive) heart failure; K70.30 Alcoholic cirrhosis of liver without ascites; K76.6 Portal hypertension; R16.1 Splenomegaly, not elsewhere classified; N18.4 Chronic kidney disease, stage 4 (severe); I49.3 Ventricular premature depolarization; K81.9 Cholecystitis, unspecified; K82.1 Hydrops of gallbladder; Z83.3 Family history of diabetes mellitus; Z82.49 Family history of ischemic heart disease and other diseases of the circulatory system
CPT/HCPCS: 36415; 74176; 76705; 76770; 78227; 80053; 81001; 82550; 82553; 82570; 84156; 84484; 84550; 85025; 96360; 96361; 99284; A9537; G0378; J0696; J2270; J2405; J7030; J7040

== ENCOUNTER 2019-10-06 19:32 | Emergency (ER) | payer OTHER ==
[~2019-10-06] VITALS: Ht 167.6 cm; Wt 93.9 kg
[~2019-10-06 19:32] MED LIST changes: +ATORVASTATIN CA10 MG PO; +METOPROLOL TAR100 MG PO
[2019-10-06] MEDS ORDERED: KETOROLAC TROMETHAMINE 30 MG/ML VIAL IV STA (20:34)
[2019-10-06 21:02] LABS: BASOPHILS % 0.3 % (0.0-1.0); EOSINOPHILS % 0.4 % (0.0-6.0); HEMATOCRIT 39.9 % (38.2-49.6); HEMOGLOBIN 13.5 g/dL (14.0-18.0); LYMPHOCYTES # (AUTO) 1.6 (1.0-3.2); LYMPHOCYTES % 17.4 % (18.0-39.1); MEAN CORPUSCULAR HEMOGLOBIN 30.1 pg (28-32); MEAN CORPUSCULAR HGB CONC 33.8 g/dL (31-35); MEAN CORPUSCULAR VOLUME 88.9 fL (81-99); MONOCYTES # (AUTO) 0.7 (0.2-0.8); NEUTROPHILS % 74.7 % (38.7-80.0); PLATELET COUNT 113 x10e3/uL (140-360); RED BLOOD COUNT 4.49 x10e6/uL (4.3-5.7); RED CELL DISTRIBUTION WIDTH 13.6 % (11.7-14.4)
[2019-10-06 21:17] LABS: ALBUMIN 4.2 g/dL (3.5-5.0); ALBUMIN/GLOBULIN RATIO 1.3 (0.8-2.0); CALCIUM 9.7 mg/dL (8.4-10.2); CREATININE, SERUM 2.21 mg/dL (0.72-1.25)
[2019-10-06 21:31] LABS: CLARITY,URINE CLEAR (CLEAR); COLOR,URINE YELLOW (YELLOW); KETONES,URINE NEGATIVE (NEGATIVE); LEUKOCYTE ESTERASE ,URINE NEGATIVE (NEGATIVE); NITRITE,URINE NEGATIVE (NEGATIVE); PROTEIN,URINE DIPSTICK 1+ (NEGATIVE)
[2019-10-06 21:32] LABS: BILIRUBIN,URINE NEGATIVE (NEGATIVE); URINE UROBILINOGEN 0.2 mg/dL (0.2 - 1)
[2019-10-06 21:42] LABS: BACTERIA,URINE RARE /HPF; EPITHELIAL CELLS,URINE FEW /LPF
[2019-10-06] MEDS ORDERED: DICYCLOMINE HCL 20 MG/2 ML VIAL IM ONE (22:15)
--- NOTE | 2019-10-06 23:15 | Diagnostic Imaging Report ---
Two view abdomen series. CPT 49138 CLINICAL HISTORY: Pain TECHNIQUE: Flat and upright views of the abdomen obtained. COMPARISON: CT abdomen/pelvis 09/30/2019. Medical Devices: None Bowel: Unremarkable bowel gas pattern. No dilated bowel loops or pneumatosis. No air-fluid levels. Calcifications: None over the renal shadows or along the expected course of the ureters Organomegaly: None Free air: None Lung bases: Clear Bones: Degenerative changes of the spine. IMPRESSION: Unremarkable bowel gas pattern. Signed by: Dr. Doe Mancia MD on 10/06/2019 11:12 PM
[2019-10-06 23:55] VITALS: BP 158/101
== END 2019-10-07 00:20 | disposition home or self-care (01) ==
LOC: ER 19:32
DX: R10.32 Left lower quadrant pain (principal); R11.0 Nausea; K59.00 Constipation, unspecified
CPT/HCPCS: 36415; 74019; 80053; 81001; 85025; 99283; J0500; J1885

== ENCOUNTER 2020-02-25 13:55 | Emergency (ER) | payer OTHER ==
[~2020-02-25] VITALS: Ht 167.6 cm; Wt 93.9 kg
[2020-02-25 14:23] LABS: BASOPHILS # (AUTO) 0.1 (0.0-0.1); BASOPHILS % 0.5 % (0.0-1.0); EOSINOPHILS # (AUTO) 0.2 (0.0-0.4); EOSINOPHILS % 1.7 % (0.0-6.0); HEMATOCRIT 35.1 % (38.2-49.6); HEMOGLOBIN 11.1 g/dL (14.0-18.0); LYMPHOCYTES # (AUTO) 3.2 (1.0-3.2); LYMPHOCYTES % 31.9 % (18.0-39.1); MEAN CORPUSCULAR HEMOGLOBIN 30.5 pg (28-32); MEAN CORPUSCULAR HGB CONC 31.6 g/dL (31-35); MEAN CORPUSCULAR VOLUME 96.4 fL (81-99); MONOCYTES # (AUTO) 1.1 (0.2-0.8); NEUTROPHILS # (AUTO) 5.5 (2.1-6.9); NEUTROPHILS % 54.6 % (38.7-80.0); PLATELET COUNT 128 x10e3/uL (140-360); RED BLOOD COUNT 3.64 x10e6/uL (4.3-5.7)
--- OUTSIDE RECORDS SUMMARY | 2020-02-25 14:24 | XMS REPORT | Continuity of Care Document ---
Author Author [facility] Organization [facility] Address [address] [place] [address] Phone Unavailable Care Team Providers Care U[employer]ol[employer] Name Role Phone NO, PCP PCP Unavailable Kamini DAVALOS Attphys Unavailable Davidson MICHEL Attphys Unavailable ADRIEL DEY Attphys Unavailable Davidson MICHEL Admphys Unavailable Problems This patient has no known problems. Allergies, Adverse Reactions, Alerts This patient has no known allergies or adverse reactions. Medications Ordered Medication Name Filled Medication Name Start Date Stop Da te Current Medication? Ordering Clinician Indication Dosage Frequency Signature (SIG) Comments Components Source Furosemide 40 Mg Tablet Furosemide 40 Mg Tablet Yes 40 Twice A Day [facility] Metoprolol Metoprolol Yes 100 Daily [facility] Procedures This patient has no known procedures. Encounters Start Date/Time End Date/Time Encounter Type Admission Type Attendi [facility] Care Department Encounter ID Source 2019-09-13 16:49:00 2019-09-15 16:04:00 Discharged Inpatient (obs) 1 ADRIEL DEY [facility] [id number] [facility] Results Test Description Test Time Test Comments Results Result Comments Source ABDOMEN 2 VIEW 2019-10-06 23:11:00 [facility] [address] [place], [place] [address] Patient Name: CORINA KAUFMAN MR #: [id number] : 1965 Age/Sex: 54/M Req #: [id number] Adm Physician: Ordered by: STACI GALEANA [employer] Report #: [id number] Location: ER Room/Bed: Procedure: [id number] DX/ABDOMEN 2 VIEW Exam Date: 10/06/19 Exam Time: 2240 REPORT STATUS: Signed Two view abdomen series. CPT 60087 CLINICAL HISTORY: Pain TECHNIQUE: Flat and upright views of the abdomen obtained. COMPARISON: CT abdomen/pelvis 09/30/2019. Medical Devices: None Bowel: Unremarkable bowel gas pattern. No dilated bowel loops or pneumatosis. No air-fluid levels. Calcifications: None over the renal shadows or along the expected course of the ureters Organomegaly: None Free air: None Lung bases: Clear Bones: Degenerative changes of the spine. IMPRESSION: Unremarkable bowel gas pattern. Signed by: Dr. Indra Champion MD on 10/06/2019 11:12 PM Dictated By: INDRA CHAMPION MD 11 Transcribed By: NAHED on 10/06/192311 COPY TO: STACI GALEANA [facility] RENAL RETROPERITONEAL COMP 2019-10-01 19:42:00 [place] [address] Patient Name: CORINA KAUFMAN MR #: [id number] : 1965 Age/Sex: 54/M Req #: [id number] Adm Physician: ALBERTO MICHEL MD Ordered by: ADY DOBBINS, LING DOBBINS Report #: [id number] Location: MED/SURG3 Room/Bed: [facility] Procedure: US/US RENAL RETROPERITONEAL COMP Exam Date: 10/01/19 Exam Time: 1808 REPORT STATUS: Signed EXAM: Retroperitoneal Ultrasound INDICATION: hira COMPARISON: None TECHNIQUE: Transverse and longitudinal images of the kidneys and bladder were obtained. FINDINGS: Right Kidney: Size: 9.1 cm Echogenicity: Normal Parenchymal thickness: Normal Collecting system: No hydronephrosis Stones: None Cyst/Mass: None Left Kidney: Size: 9.9 cm Echogenicity: Normal Parenchymal thickness: Normal Collecting system: No hydronephrosis Stones: None Cyst/Mass: None Bladder: Normal Prostate measures 12.7 x 2.9 x 4.0 cm total volume of 13.2 cc IMPRESSION: No nephroureterolithiasis or hydronephrosis. Signed by: Maury Abraham MD on 10/01/2019 7:55 PM Dictated By: MAURY ABRAHAM MD 54 Transcribed By: NAHED on 10/01/191954 COPY TO: LING GARSIA HEPTOBILIARY W PHARM 2019-10-01 17:21:00 [place] [address] Patient Name: CORINA KAUFMAN MR #: [id number] : 1965 Age/Sex: 54/M Req #: [id number] Adm Physician: ALBERTO MICHEL MD Ordered by: ARAM TERRAZAS MD Report #: [id number] Location: MED/SURG3 Room/Bed: [facility] Procedure: [id number] NM/HEPTOBILIARY W PHARM Exam Date: 10/01/19 Exam Time: 1200 REPORT STATUS: Signed Hepatobiliary Scan with Gallbladder Ejection Fraction Clinical information: R10.11 RUQ pain Technique: Following intravenous administration of 6.6 millicuries of Tc-99m mebrofenin, dynamic images of the abdomen in the anterior projection were obtained through 60 minutes. Sincalide (CCK analog) 1.9 micrograms was administered intravenously over 30 minutes with additional imaging for determination of gallbladder ejection fraction. Discussion: Perfusion of the liver is normal. Extraction of tracer by the liver parenchyma is normal. Tracer appears promptly within the biliary tract. The gallbladder begins to fill by 16 minutes post injection of tracer and fills adequately. Tracer is seen in the small bowel during the sincalide infusion. The gallbladder ejection fraction with sincalide is 8% (normal greater than 40%). Impression: 1. Filling of the gallbladder excludes acute cystic duct obstruction/acute cholecystitis. 2. The decreased gallbladder ejection fraction of 8% supports the clinical diagnosis of chronic cholecystitis/gallbladder dyskinesia. Signed by: Dr. Gaston Sandoval M.D. on 10/01/2019 5:23 PM Dictated By: GATSON SANDOVAL MD 22 Transcribed By: NAHED on 10/01/191722 COPY TO: ARAM TERRAZAS MD GALLBLADDER 2019-10-01 09:47:00 [place] [address] Patient Name: CORINA KAUFMAN MR #: [id number] : 1965 Age/Sex: 54/M Req #: [id number] Adm Physician: ALBERTO MICHEL MD Ordered by: ARAM TERRAZAS MD Report #: [id number] Location: MED/SURG3 Room/Bed: [facility] Procedure: [id number] US/US GALLBLADDER Exam Date: 10/01/19 Exam Time: 0822 REPORT STATUS: Signed EXAM: Right upper quadrant abdominal ultrasound INDICATION: Right upper quadrant pain COMPARISON: CT abdomen pelvis of 09/30/2019 TECHNIQUE: Transverse and longitudinal images of the right upper quadrant abdomen were obtained FINDINGS: Liver: Size: 14.2 cm in the right midclavicular line, normal Appearance: Normal echogenicity, nodular contour Mass: No focal masses Gallbladder: The gallbladder is distended, measuring up to 13.1 x 6.1 cm. There is sludge within the gallbladder. No gallstones. No gallbladder wall thickening or pericholecystic fluid. Gallbladder wall measures up to 2 mm. Negative sonographic Barahona's sign. Bile Ducts: Intrahepatic Ducts: No dilatation Extrahepatic Ducts: Common bile duct measures 4 mm Pancreas: Visualized portions of the pancreatic head, neck and proximal body are normal. Kidney: The right kidney measures 9.8 cm without evidence of hydronephrosis or stone. Vessels: Aorta: Visualized portions are normal Inferior Vena Cava: Visualized portions are normal Main Portal Vein: 1.1 cm, normal size with hepatopetal flow. Free Fluid: No ascites or pleural effusion IMPRESSION: Sludge in the distended gallbladder. No specific sonographic evidence of cholecystitis. Mildly nodular liver surface contour can be seen in early cirrhosis. Signed by: Ana Leblanc MD on 10/01/2019 9:50 AM Dictated By: ANA LEBLANC MD Transcribed By: NAHED on 10/01/19 0950 COPY TO: ARAM TERRAZAS MD CT ABDOMEN/PELVIS 2019-09-30 12:58:00 [place] [address] Patient Name: CORINA KAUFMAN MR #: [id number] : 1965 Age/Sex: 54/M Req #: [id number] Adm Physician: Ordered by: STACI GALEANA NP Report #: [id number] Location: Room/Bed: Procedure: [id number] CT/CT ABDOMEN/PELVIS WO Exam Date: Exam Time: REPORT STATUS: Signed EXAM: CT Abdomen and Pelvis WITHOUT contrast INDICATION: Abdominal pain. COMPARISON: None. TECHNIQUE: Abdomen and pelvis were scanned utilizing a multidetector helical scanner from the lung base to the pubic symphysis without administration of IV contrast. Absence of intravenous contrast decreases sensitivity for detection of focal lesions and vascular pathology. Coronal and sagittal reformations were obtained. Routine protocol was performed. IV CONTRAST: None. ORAL CONTRAST: Gastrografin water mixture. RADIATION DOSE: Total DLP: 767.72 mGy*cm Estimated effective dose: (DLP x 0.015 x size fa ctor) mSv COMPLICATIONS: None FINDINGS: LINES and TUBES: None. LOWER THORAX: There is bibasilar atelectasis. HEPATOBILIARY: Nodular hepatic contour. No focal hepatic lesions. No biliary ductal dilation. GALLBLADDER: The gallbladder is hydropic measuring 14.2 x 6.4 cm. Mildly high attenuation gallbladder content suggestive of sludge. No wall thickening. SPLEEN: Mildly enlarged measuring 14.2 cm in craniocaudal dimension. PANCREAS: No focal masses or ductal dilatation. ADRENALS: No adrenal nodules KIDNEYS/URETERS: No hydronephrosis. No cystic or solid mass lesions. No stones. Bilateral perinephric stranding. GI TRACT: No abnormal distention, wall thickening, or evidence of bowel obstruction. There are diverticula within the colon without evidence of diverticulitis. Appendix is normal. PELVIC ORGANS/BLADDER: The prostate is mildly enlarged measuring 4.9 x 3.9 cm. LYMPH NODES: No lymphadenopathy. VESSELS: There is mild atherosclerotic disease in the aorta and major arterial branches. PERITONEUM / RETROPERITONEUM: There is mild diffuse increased density of the peritoneal fat. BONES: There are degenerative changes in the lumbar spine. SOFT TISSUES: Unremarkable. IMPRESSION: 1. Markedly hydropic gallbladder. Correlate for right upper quadrant pain. If clinical concern for cholecystitis, consider ultrasound of gallbladder. 2. Cirrhotic hepatic morphology. 3. Mild splenomegaly. 4. Mild diverticulosis without acute diverticulitis. Signed by: Dr. David Zaragoza M.D. on 09/30/2019 1:28 PM Dictated By: BATSHEVA ZARAGOZA MD, MD 27 Transcribed By: NAHED on 09/30/198 COPY TO: STACI GALEANA [employer] Sodium Level 2019-09-15 07:29:00 Test Item Sodium Level (test code = 2951-2) 141 136-145 [facility] HospitalPotassium Evtcj4943-11-40 07:29:00* Test Item Value Reference Range Interpretation Comments Potassium Level (test code = 2823-3) 3.7 3.5-5.1 [facility] HospitalChloride Jjcic4208-28-51 07:29:00* Test Item Value Reference Range Interpretation Comments Chloride Level (test code = 2075-0) 104 98-107 [facility] HospitalCarbon Dioxide Kczzd6232-31-11 07:29:00* Test Item Value Reference Range Interpretation Comments Carbon Dioxide Level (test code = 2028-9) 32 22-29 H [facility] HospitalAnion Jlv0237-94-76 07:29:00* Test Item Value Reference Range Interpretation Comments Anion Gap (test code = 58208-4) 8.7 8-16 [facility] HospitalBlood Urea Ptxgroff3197-14-38 07:29:00* Test Item Value Reference Range Interpretation Comments Blood Urea Nitrogen (test code = 3094-0) 20 7-26 [facility] HospitalCreatinine2020-03-14 07:29:00* Test Item Value Reference Range Interpretation Comments Creatinine (test code = 2160-0) 1.31 0.72-1.25 H [facility] HospitalBUN/Creatinine Dehhu8982-83-56 07:29:00* Test Item Value Reference Range Interpretation Comments BUN/Creatinine Ratio (test code = 3097-3) 15 6-25 [facility] HospitalEstimat Glomerular Filtration Rate 2019-09-15 07:29:00* Test Item Value Reference Range Interpretation Comments Estimat Glomerular Filtration Rate (test code = 867826025) 57 >60 L Ranges were taken from the National Kidney Disease Education Program and the [facility] Kidney Foundation literature.Reference ranges:60 or greater: Nckphb92-90 ( for 3 consecutive months): Chronic kidney disease 15 or less: Kidney failureHarris Health System Lyndon B. Johnson HospitalGlucose Qkohy1026-99-04 07:29:00* Test Item Value Reference Range Interpretation Comments Glucose Level (test code = MKW5940) 84 74-118 [facility] HospitalCalcium Vyemo4202-58-98 07:29:00* Test Item Value Reference Range Interpretation Comments Calcium Level (test code = 02307-3) 9.1 8.4-10.2 [facility] HospitalWhite Blood Xmuns3691-43-78 07:19:00* Test Item Value Reference Range Interpretation Comments White Blood Count (test code = 6690-2) 5.50 4.8-10.8 [facility] HospitalRed Blood Hbrir1513-45-06 07:19:00* Test Item Value Reference Range Interpretation Comments Red Blood Count (test code = 789-8) 3.78 4.3-5.7 L [facility] HospitalHemoglobin2020-03-14 07:19:00* Test Item Value Reference Range Interpretation Comments Hemoglobin (test code = 66172-2) 11.3 14.0-18.0 L [facility] HospitalHematocrit2020-03-14 07:19:00* Test Item Value Reference Range Interpretation Comments Hematocrit (test code = 4544-3) 34.9 38.2-49.6 L [facility] HospitalMean Corpuscular Omxtcn0339-02-19 07:19:00* Test Item Value Reference Range Interpretation Comments Mean Corpuscular Volume (test code = 787-2) 92.3 81-99 [facility] HospitalMean Corpuscular Kqmerialgi0870-94-65 07:19:00* Test Item Value Reference Range Interpretation Comments Mean Corpuscular Hemoglobin (test code = 785-6) 29.9 28-32 [facility] HospitalMean Corpuscular Hemoglobin Concent 2019-09-15 07:19:00* Test Item Value Reference Range Interpretation Comments Mean Corpuscular Hemoglobin Concent (test code = 786-4) 32.4 31-35 [facility] HospitalRed Cell Distribution Zqugu7774-50-42 07:19:00* Test Item Value Reference Range Interpretation Comments Red Cell Distribution Width (test code = 99364-4) 15.5 11.7 -14.4 H [facility] HospitalPlatelet Anrdd6802-31-59 07:19:00* Test Item Value Reference Range Interpretation Comments Platelet Count (test code = 777-3) 93 140-360 L [facility] HospitalNeutrophils (%) (Auto)2019-09-15 07:19:00 * Test Item Value Reference Range Interpretation Comments Neutrophils (%) (Auto) (test code = 63962-8) 55.8 38.7-80.0 [facility] HospitalLymphocytes (%) (Auto)2019-09-15 07:19:00 * Test Item Value Reference Range Interpretation Comments Lymphocytes (%) (Auto) (test code = 736-9) 27.5 18.0-39.1 [facility] HospitalMonocytes (%) (Auto)2019-09-15 07:19:00* Test Item Value Reference Range Interpretation Comments Monocytes (%) (Auto) (test code = 5905-5) 13.1 4.4-11.3 H [facility] HospitalEosinophils (%) (Auto)2019-09-15 07:19:00 * Test Item Value Reference Range Interpretation Comments Eosinophils (%) (Auto) (test code = 713-8) 2.7 0.0-6.0 [facility] HospitalBasophils (%) (Auto)2019-09-15 07:19:00* Test Item Value Reference Range Interpretation Comments Basophils (%) (Auto) (test code = 706-2) 0.5 0.0-1.0 [facility] HospitalIM GRANULOCYTES %2019-09-15 07:19:00* Test Item Value Reference Range Interpretation Comments IM GRANULOCYTES % (test code = IM GRANULOCYTES %) 0.4 0.0- 1.0 [facility] HospitalNeutrophils # (Auto)2019-09-15 07:19:00* Test Item Value Reference Range Interpretation Comments Neutrophils # (Auto) (test code = 751-8) 3.1 2.1-6.9 [facility] HospitalLymphocytes # (Auto)2019-09-15 07:19:00* Test Item Value Reference Range Interpretation Comments Lymphocytes # (Auto) (test code = 21902-8) 1.5 1.0-3.2 [facility] HospitalMonocytes # (Auto)2019-09-15 07:19:00* Test Item Value Reference Range Interpretation Comments Monocytes # (Auto) (test code = 742-7) 0.7 0.2-0.8 [facility] HospitalEosinophils # (Auto)2019-09-15 07:19:00* Test Item Value Reference Range Interpretation Comments Eosinophils # (Auto) (test code = 711-2) 0.2 0.0-0.4 [facility] HospitalBasophils # (Auto)2019-09-15 07:19:00* Test Item Value Reference Range Interpretation Comments Basophils # (Auto) (test code = 704-7) 0.0 0.0-0.1 [facility] HospitalAbsolute Immature Granulocyte (auto 2019-09-15 07:19:00* Test Item Value Reference Range Interpretation Comments Absolute Immature Granulocyte (auto (johnathan t code = Absolute Immature Granulocyte (auto) 0.02 0-0.1 [facility] HospitalCreatine Kinase EE0137-61-41 17:50:00* Test Item Value Reference Range Interpretation Comments Creatine Kinase MB (test code = 73429-5) 3.10 0-5.0 [facility] HospitalTroponin I0765-29-31 17:50:00* Test Item Value Reference Range Interpretation Comments Troponin I (test code = LWS1759) 0.175 0-0.300 [facility] HospitalCreatine Xlppdj3163-46-86 17:42:00* Test Item Value Reference Range Interpretation Comments Creatine Kinase (test code = 2157-6) 60 30-200 [facility] HospitalTriglycerides Bnrsl1636-77-80 09:03:00* Test Item Value Reference Range Interpretation Comments Triglycerides Level (test code = 2571-8) 68 0-149 [facility] HospitalCholesterol Heryo5788-10-04 09:03:00* Test Item Value Reference Range Interpretation Comments Cholesterol Level (test code = 2093-3) 138 0-199 Less than 200 mg/dL Low Qrti242 - 239 mg/dL Borderline Rbbj587 m g/dl and greater High Risk [facility] HospitalLDL Cgexsvojupp7390-18-19 09:03:00* Test Item Value Reference Range Interpretation Comments LDL Cholesterol (test code = 2089-1) 95 60-130 [facility] HospitalHDL Pcvkakodhnx0069-23-93 09:03:00* Test Item Value Reference Range Interpretation Comments HDL Cholesterol (test code = 2085-9) 29 40-60 L [facility] HospitalCholesterol/HDL Rjfab8000-67-37 09:03:00 * Test Item Value Reference Range Interpretation Comments Cholesterol/HDL Ratio (test code = 9830-1) 4.8 3.9-4.7 H [facility] HospitalPlatelet Vqjvgzra1922-58-79 08:52:00* Test Item Value Reference Range Interpretation Comments Platelet Estimate (test code = 06429-6) MODERATELY DECREASED [facility] HospitalPlatelet Morphology Rpjarwr2302-55-90 08:52:00* Test Item Value Reference Range Interpretation Comments Platelet Morphology Comment (test code = 83623-7) NORMAL NO EDTA PLT CLUMPSHarris Health System Lyndon B. Johnson HospitalRed Cell Morphology Cuimsoj5653-53-86 08:52:00* Test Item Value Reference Range Interpretation Comments Red Cell Morphology Comment (test code = 6742-1) NORMAL [facility] HospitalFree Thyroxine Zonfw2626-43-50 08:10:00* Test Item Value Reference Range Interpretation Comments Free Thyroxine Index (test code = 39011-2) 2.7369 1.4-3.8 [facility] HospitalThyroxine (T4)2019-09-14 08:10:00* Test Item Value Reference Range Interpretation Comments Thyroxine (T4) (test code = 3026-2) 7.21 4.5-10.9 [facility] HospitalTriiodothyronine (T3) Endeeq4255-09-56 08:10:00* Test Item Value Reference Range Interpretation Comments Triiodothyronine (T3) Uptake (test code = 3050-2) 37.96 22.5 -37.0 H [facility] HospitalThyroid Stimulating Hormone (TSH) 2019-09-14 08:10:00* Test Item Value Reference Range Interpretation Comments Thyroid Stimulating Hormone (TSH) (test code = 19142-5) 1.900 0.350-4.940 [facility] HospitalMagnesium Bzicb3901-70-20 06:38:00* Test Item Value Reference Range Interpretation Comments Magnesium Level (test code = 63722-0) 1.7 1.3-2.1 [facility] HospitalTotal Enuxnwdpd8895-47-33 06:38:00* Test Item Value Reference Range Interpretation Comments Total Bilirubin (test code = 1975-2) 0.7 0.2-1.2 [facility] HospitalAspartate Amino Transf (AST/SGOT) 2019-09-14 06:38:00* Test Item Value Reference Range Interpretation Comments Aspartate Amino Transf (AST/SGOT) (test code = Aspartate Amino Transf (AST/SGOT)) 19 5-34 [facility] HospitalAlanine Aminotransferase (ALT/SGPT) 2019-09-14 06:38:00* Test Item Value Reference Range Interpretation Comments Alanine Aminotransferase (ALT/SGPT) (test code = 1742-6) 17 0-55 [facility] HospitalTotal Mscbaxh6961-01-37 06:38:00* Test Item Value Reference Range Interpretation Comments Total Protein (test code = 2885-2) 6.1 6.5-8.1 L [facility] HospitalAlbumin2020-03-13 06:38:00* Test Item Value Reference Range Interpretation Comments Albumin (test code = 1751-7) 3.6 3.5-5.0 [facility] HospitalGlobulin2020-03-13 06:38:00* Test Item Value Reference Range Interpretation Comments Globulin (test code = 34165-8) 2.5 2.3-3.5 [facility] HospitalAlbumin/Globulin Psxcl7823-76-31 06:38:00 * Test Item Value Reference Range Interpretation Comments Albumin/Globulin Ratio (test code = 1759-0) 1.4 0.8-2.0 [facility] HospitalAlkaline Fipbpskhuey7144-20-77 06:38:00* Test Item Value Reference Range Interpretation Comments Alkaline Phosphatase (test code = 6768-6) 94 40-150 [facility] HospitalB-Type Natriuretic Fpfqcic1264-81-59 17:25:00* Test Item Value Reference Range Interpretation Comments B-Type Natriuretic Peptide (test code = 05321-7) 549.6 0-100 H [facility] HospitalUrine EZE4314-15-73 17:15:00* Test Item Value Reference Range Interpretation Comments Urine WBC (test code = 5821-4) NONE 0-5 [facility] HospitalUrine QFI6806-53-85 17:15:00* Test Item Value Reference Range Interpretation Comments Urine RBC (test code = 08571-4) 0-5 0-5 [facility] HospitalUrine Akxphzme0458-37-15 17:15:00* Test Item Value Reference Range Interpretation Comments Urine Bacteria (test code = 43855-1) RARE NONE [facility] HospitalUrine Epithelial Langc7986-29-09 17:15:00 * Test Item Value Reference Range Interpretation Comments Urine Epithelial Cells (test code = 35993-0) NONE NONE [facility] HospitalProthrombin Zbbw6008-97-34 17:08:00* Test Item Value Reference Range Interpretation Comments Prothrombin Time (test code = 5902-2) 16.4 11.9-14.5 H [facility] HospitalProthromb Time International Ratio 2019-09-13 17:08:00* Test Item Value Reference Range Interpretation Comments Prothromb Time International Ratio (test code = 6301-6) 1.24 Oral Anticoagulant Therapy INR Values:1. Low Intensity Therapy 1.5 - 2.02 . Moderate Intensity Therapy 2.0 - 3.03. High Intensity Therapy(1) 2.5 - 3. 54. High Intensity Therapy(2) 3.0 - 4.05. Panic Value INR > 5.0 [facility] HospitalActivated Partial Thromboplast Time 2019-09-13 17:08:00* Test Item Value Reference Range Interpretation Comments Activated Partial Thromboplast Time (test code = 64190-6) 31.3 23.8-35.5 [facility] HospitalUrine Azxdf3372-57-55 17:05:00* Test Item Value Reference Range Interpretation Comments Urine Color (test code = 5778-6) YELLOW YELLOW [facility] HospitalUrine Yalaarp8617-04-58 17:05:00* Test Item Value Reference Range Interpretation Comments Urine Clarity (test code = 28033-8) SL CLOUDY CLEAR H [facility] HospitalUrine Specific Obzdzlm1094-71-40 17:05:00 * Test Item Value Reference Range Interpretation Comments Urine Specific Williams (test code = 5811-5) 1.015 1.010-1.02 5 [facility] HospitalUrine bP8023-41-44 17:05:00* Test Item Value Reference Range Interpretation Comments Urine pH (test code = 43411-4) 5 5-7 [facility] HospitalUrine Leukocyte Xflzplxo9032-93-05 17:05:00* Test Item Value Reference Range Interpretation Comments Urine Leukocyte Esterase (test code = 5799-2) NEGATIVE NEGATIVE [facility] HospitalUrine Naubgib2033-56-33 17:05:00* Test Item Value Reference Range Interpretation Comments Urine Nitrite (test code = 59496-8) NEGATIVE NEGATIVE [facility] [facility] [id number] 17:05:00* Test Item Value Reference Range Interpretation Comments Urine Protein (test code = 5804-0) TRACE NEGATIVE [facility] (UA)2019-09-13 17:05:00* Test Item Value Reference Range Interpretation Comments Urine Glucose (UA) (test code = 2349-9) NEGATIVE NEGATIVE [facility] [id number] 17:05:00* Test Item Value Reference Range Interpretation Comments Urine Ketones (test code = 76543-8) NEGATIVE NEGATIVE [facility] [id number] 17:05:00* Test Item Value Reference Range Interpretation Comments Urine Urobilinogen (test code = 09226-5) 0.2 0.2-1 [facility] [id number] 17:05:00* Test Item Value Reference Range Interpretation Comments Urine Bilirubin (test code = 1978-6) NEGATIVE NEGATIVE [facility] [id number] 17:05:00* Test Item Value Reference Range Interpretation Comments Urine Blood (test code = 46382-4) TRACE NEGATIVE H [facility]2019-09-13 16:19:00 [facility] [address] [place] [address] Patient Name: CORINA KAUFMAN MR #: [id number] : 1965 Age/Sex: 54/M Req #: [id number] Adm Physician: Ordered by: STACI GALEANA KNOT BUMPER Report #: [id number] Location: ER Room/Bed: Procedure: [id number] DX /CHEST SINGLE (PORTABLE) Exam Date: Exam Time: REPORT STATUS: Signed EXAMINATION: CHEST SINGLE (PORTABLE) INDICATION: Chest pain COMPARISON: None FINDINGS: AP view Low lung volumes with accentuation of the pulmonary vasculature and cardiac silhouette. Likely mild cardiom egaly. Fullness of the pulmonary vasculature suggests pulmonary venous congest ion. No focal airspace consolidation. Questionable small right pleural effu jamel. No pneumothorax. No acute osseous abnormality. IMPRESSION: Findings suggestive of early heart failure. Signed by: Lian Martin MD on 09/13/2019 4:20 PM Dictated By: LIAN MARTIN MD Electronically Linh d By: LIAN MARTIN MD on 09/13/19 1620 Transcribed By: NAHED on 09/13/19 16 20 COPY TO: STACI GALEANA NP
[2020-02-25 14:42] LABS: ALBUMIN 3.8 g/dL (3.5-5.0); ALBUMIN/GLOBULIN RATIO 1.1 (0.8-2.0); ANION GAP 16.4 mmol/L (8-16); CALCIUM 9.3 mg/dL (8.4-10.2); CREATININE, SERUM 2.66 mg/dL (0.72-1.25); POTASSIUM 4.4 mmol/L (3.5-5.1)
[2020-02-25 14:49] LABS: CREATINE KINASE MB 5.3 ng/mL (0-5.0)
[2020-02-25 14:56] LABS: INR 1.24; PROTHROMBIN TIME 16.3 seconds (11.9-14.5)
--- NOTE | 2020-02-25 15:12 | Emergency Department Note ---
History of Present Illnes History of Present Illness Chief Complaint: BAZAN History of Present Illness This is a 54 year old male with recent diagnosis of congestive heart failure here with dyspnea on exertion and orthopnea. Patient denies any chest pain. Patient also with 2+ weeks of worsening edema up to his knees. Historian: Patient Arrival Mode: Car Location: LE Quality: ache Severity: moderate Onset quality: gradual Timing of current episode: constant Progression: worsening Chronicity: new Context: Reports recent illness Relieving factors: none Exacerbating factors: other (laying flat ) Associated symptoms: Reports malaise, Reports shortness of breath, Reports weakness; Denies chest pain, Denies cough, Denies headaches, Denies loss of appetite, Denies nausea/vomiting, Denies rash, Denies syncope Treatments prior to arrival: none Past Medical/Family History Physician Review I have reviewed the patient's past medical and family history. Any updates have been documented here. Past Medical History Recent Fever: No Clinical Suspicion of Infectio: No New/Unexplained Change in Ment: No Past Medical History: Hypertension, CHF, Hyperlipedemia, Chronic Kidney Disease Other Medical History: CIRRHOSIS DIVERTICULOSIS Past Surgical History: None Social History Smoking Cessation: Never Smoker Alcohol Use: None Any Illegal Drug Use: No Physically hurt or threatened: No Other Last Tetanus: OUT OF DATE Any Pre-Existing Lines (PICC,: No Review of Systems Review of Systems Constitutional: Reports no symptoms EENTM: Reports no symptoms Cardiovascular: Reports as per HPI Respiratory: Reports as per HPI Gastrointestinal: Reports no symptoms Genitourinary: Reports no symptoms Musculoskeletal: Reports no symptoms Integumentary: Reports no symptoms Neurological: Reports no symptoms Psychological: Reports no symptoms Endocrine: Reports no symptoms Hematological/Lymphatic: Reports no symptoms Physical Exam Related Data Allergies: Coded Allergies: No Known Allergies (Unverified , 09/13/19) Triage Vital Signs Vital Signs Date Time Temp Pulse Resp B/P (MAP) Pulse Ox O2 Delivery O2 Flow Rate FiO2 02/25/20 14:01 97.4 76 17 132/90 98 Room Air Vital signs reviewed: Yes Physical Exam CONSTITUTIONAL Constitutional: Present well-developed, Present well-nourished HENT HENT: Present normocephalic, Present atraumatic, Present oropharynx clear/moist, Present nose normal HENT L/R: Present left ext ear normal, Present right ext ear normal EYES Eyes: Reports PERRL, Reports conjunctivae normal NECK Neck: Present ROM normal PULMONARY Pulmonary: Present effort normal, Present breath sounds normal CARDIOVASCULAR Cardiovascular: Present regular rhythm, Present heart sounds normal, Present capillary refill normal, Present normal rate GASTROINTESTINAL Abdominal: Present soft, Present nontender, Present bowel sounds normal GENITOURINARY Genitourinary: Present exam deferred SKIN Skin: Present warm, Present dry MUSCULOSKELETAL Musculoskeletal: Present ROM normal, Present edema (2+ to knees ) NEUROLOGICAL Neurological: Present alert, Present oriented x 3, Present no gross motor or sensory deficits PSYCHOLOGICAL Psychological: Present mood/affect normal, Present judgement normal Results Laboratory Result Diagram: 02/25/20 1409 02/25/20 1409 Laboratory Laboratory Tests Test 02/25/20 14:36 02/25/20 14:09 Prothrombin Time 16.3 seconds (11.9-14.5) Prothromb Time International Ratio 1.24 White Blood Count 10.12 x10e3/uL (4.8-10.8) Red Blood Count 3.64 x10e6/uL (4.3-5.7) Hemoglobin 11.1 g/dL (14.0-18.0) Hematocrit 35.1 % (38.2-49.6) Mean Corpuscular Volume 96.4 fL (81-99) Mean Corpuscular Hemoglobin 30.5 pg (28-32) Mean Corpuscular Hemoglobin Concent 31.6 g/dL (31-35) Red Cell Distribution Width 15.0 % (11.7-14.4) Platelet Count 128 x10e3/uL (140-360) Neutrophils (%) (Auto) 54.6 % (38.7-80.0) Lymphocytes (%) (Auto) 31.9 % (18.0-39.1) Monocytes (%) (Auto) 11.0 % (4.4-11.3) Eosinophils (%) (Auto) 1.7 % (0.0-6.0) Basophils (%) (Auto) 0.5 % (0.0-1.0) Neutrophils # (Auto) 5.5 (2.1-6.9) Lymphocytes # (Auto) 3.2 (1.0-3.2) Monocytes # (Auto) 1.1 (0.2-0.8) Eosinophils # (Auto) 0.2 (0.0-0.4) Basophils # (Auto) 0.1 (0.0-0.1) Absolute Immature Granulocyte (auto 0.03 x10e3/uL (0-0.1) D-Dimer Quantitative (PE/DVT) 762 ng/mL (0-400) Sodium Level 137 mmol/L (136-145) Potassium Level 4.4 mmol/L (3.5-5.1) Chloride Level 104 mmol/L (98-107) Carbon Dioxide Level 21 mmol/L (22-29) Anion Gap 16.4 mmol/L (8-16) Blood Urea Nitrogen 55 mg/dL (7-26) Creatinine 2.66 mg/dL (0.72-1.25) Estimat Glomerular Filtration Rate 25 ML/MIN (60-) BUN/Creatinine Ratio 21 (6-25) Glucose Level 95 mg/dL (74-118) Calcium Level 9.3 mg/dL (8.4-10.2) Total Bilirubin 0.9 mg/dL (0.2-1.2) Aspartate Amino Transf (AST/SGOT) 23 IU/L (5-34) Alanine Aminotransferase (ALT/SGPT) 24 IU/L (0-55) Alkaline Phosphatase 107 IU/L (40-150) Creatine Kinase 99 IU/L (30-200) Creatine Kinase MB 5.30 ng/mL (0-5.0) Troponin I 0.270 ng/mL (0-0.300) B-Type Natriuretic Peptide 983.7 pg/mL (0-100) Total Protein 7.3 g/dL (6.5-8.1) Albumin 3.8 g/dL (3.5-5.0) Globulin 3.5 g/dL (2.3-3.5) Albumin/Globulin Ratio 1.1 (0.8-2.0) Assessment & Plan Medical Decision Making [facility] EKG shows interpreted by me normal sinus rhythm with right axis deviation and normal intervals incomplete left bundle branch block and T-wave inversion in 3 and aVF also V6. Nondiagnostic. The patient is a 54-year-old male with recent diagnosis of congestive heart failure here or dyspnea on exertion and also left lower extremity edema. Patient likely with congestive heart failure exacerbation, no skin EKG, no chest pain. Patient needs medication readjustment.PCP Wilbert. Reassessment Reassessment 1642 Went over all the results with Dr. Atkins, he would want us to do an extra dose of Lasix, double up for the next 2 days and have him follow-up as an outpatient. D- dimer be elevated secondary to potential COVID infection. Dr. Atkins will follow up. Assessment & Plan Final Impression: (1) Pulmonary edema (2) CHF exacerbation Depart Disposition: HOME, SELF-CARE Last Vital Signs Date Time Temp Pulse Resp B/P (MAP) Pulse Ox O2 Delivery O2 Flow Rate FiO2 02/25/20 14:20 97.5 74 20 134/88 99 02/25/20 14:01 Room Air Home Meds Reported Medications Metoprolol Tartrate (METOPROLOL TARTRATE) 100 Mg Tablet, 100 MG PO DAILY 10/01/19 Atorvastatin Calcium (ATORVASTATIN CALCIUM) 10 Mg Tablet, 10 MG PO 2099, #30 TAB 09/30/19 Furosemide (FUROSEMIDE) 40 Mg Tablet, 40 MG PO BID, #30 TAB 09/15/19 JUAN ANTONIO RAMIREZ MD Feb 25, 2020 15:12
--- NOTE | 2020-02-25 15:48 | Diagnostic Imaging Report ---
TECHNIQUE: Frontal view of the chest. INDICATION: ^CP ^[id number] ^1415 COMPARISON: 09/13/2019 DISCUSSION: Limited evaluation due to portable technique. Lines and hardware: Overlying EKG leads are noted Heart and mediastinum: Stable cardiomegaly and central vascular congestion. Lungs and pleura: Right basilar consolidation and left basilar patchy opacities are noted with blunting of the costophrenic angles. Prominent vascular markings are noted. Negative for large pneumothorax. Soft tissues and bones: No acute abnormality. IMPRESSION: Right basilar consolidation and left basilar patchy opacities are concerning for multifocal infection. Aspiration is a consideration. Recommend follow-up to resolution. Signed by: Caio Turcios MD on 02/25/2020 3:45 PM
[2020-02-25] MEDS ORDERED: FUROSEMIDE INJ 10 MG/ML 4 ML VIAL IV ONE (16:45)
[2020-02-25 16:50] VITALS: BP 125/80
[2020-02-25] MEDS ORDERED: LASIX40 MG PO (16:52)
== END 2020-02-25 17:08 | disposition home or self-care (01) ==
LOC: ER 14:21
DX: I50.9 Heart failure, unspecified (principal); J81.1 Chronic pulmonary edema; R06.00 Dyspnea, unspecified; I10 Essential (primary) hypertension; E78.5 Hyperlipidemia, unspecified; N18.9 Chronic kidney disease, unspecified; Z87.19 Personal history of other diseases of the digestive system
CPT/HCPCS: 36415; 71045; 80053; 82550; 82553; 83880; 84145; 84484; 85025; 85379; 85610; 93005; 99284; J1940

== ENCOUNTER 2020-04-30 10:43 | Observation (INO) | payer OTHER ==
[~2020-04-30] VITALS: Ht 167.6 cm; Wt 89.8 kg
[~2020-04-30 10:43] MED LIST changes: +LASIX40 MG PO
[2020-04-30] MEDS ORDERED: SODIUM CHLORIDE 0.9% 500ML 500 ML IV ONE (11:15)
[2020-04-30 11:18] LABS: BASOPHILS # (AUTO) 0.1 (0.0-0.1); BASOPHILS % 0.7 % (0.0-1.0); EOSINOPHILS # (AUTO) 0.2 (0.0-0.4); EOSINOPHILS % 1.9 % (0.0-6.0); HEMOGLOBIN 11.4 g/dL (14.0-18.0); LYMPHOCYTES # (AUTO) 2.4 (1.0-3.2); LYMPHOCYTES % 28.8 % (18.0-39.1); MEAN CORPUSCULAR HEMOGLOBIN 30.9 pg (28-32); MEAN CORPUSCULAR HGB CONC 32.6 g/dL (31-35); MEAN CORPUSCULAR VOLUME 94.9 fL (81-99); MONOCYTES # (AUTO) 0.8 (0.2-0.8); MONOCYTES % 9.5 % (4.4-11.3); NEUTROPHILS # (AUTO) 4.8 (2.1-6.9); NEUTROPHILS % 58.7 % (38.7-80.0); PLATELET COUNT 127 x10e3/uL (140-360); RED BLOOD COUNT 3.69 x10e6/uL (4.3-5.7); RED CELL DISTRIBUTION WIDTH 15.3 % (11.7-14.4)
[2020-04-30 11:29] LABS: INR 1.25; PROTHROMBIN TIME 16.3 seconds (11.9-14.5)
[2020-04-30 11:30] LABS: PARTIAL THROMBOPLASTIN TIME 32.3 seconds (23.8-35.5)
[2020-04-30 11:40] LABS: ALBUMIN 3.7 g/dL (3.5-5.0); ALBUMIN/GLOBULIN RATIO 1.1 (0.8-2.0); ANION GAP 19.1 mmol/L (8-16); CALCIUM 9.5 mg/dL (8.4-10.2); CREATININE, SERUM 4.82 mg/dL (0.72-1.25); POTASSIUM 5.1 mmol/L (3.5-5.1)
[2020-04-30 11:47] LABS: BILIRUBIN,URINE NEGATIVE (NEGATIVE); CLARITY,URINE CLEAR (CLEAR); COLOR,URINE YELLOW (YELLOW); CREATINE KINASE MB 7.5 ng/mL (0-5.0); KETONES,URINE NEGATIVE (NEGATIVE); LEUKOCYTE ESTERASE ,URINE NEGATIVE (NEGATIVE); NITRITE,URINE NEGATIVE (NEGATIVE); PROTEIN,URINE DIPSTICK 2+ (NEGATIVE); URINE UROBILINOGEN 0.2 mg/dL (0.2 - 1)
--- NOTE | 2020-04-30 11:47 | Diagnostic Imaging Report ---
EXAM: CHEST SINGLE (PORTABLE) DATE: 04/30/2020 11:05 AM INDICATION: CHF, left facial palsy COMPARISON: Chest radiograph from 02/25/2020 FINDINGS/IMPRESSION: Moderate right and small left pleural effusions noted, slightly more prominent than the prior examination. There are bibasilar opacities suggestive of atelectasis. A superimposed infectious process cannot be entirely excluded. There is no evidence for large focal consolidation or pneumothorax. The cardiomediastinal silhouette is partially obscured but appears grossly stable in appearance. No acute osseous abnormality is identified. Signed by: Dr. Pranay Pfeiffer MD on 04/30/2020 11:43 AM
[2020-04-30 11:58] LABS: BACTERIA,URINE RARE /HPF; WBC,URINE (MAN) 0-5 /HPF (0-5)
--- NOTE | 2020-04-30 12:03 | Emergency Department Note ---
History of Present Illnes History of Present Illness Chief Complaint: Respiratory History of Present Illness This is a 54 year old male PATIENT IN FROM HOME WITH COMPLAINTS OF LEFT SIDED FACIAL PARALYSIS STARTING TODAY, PER FAMILY, THE LEFT EYE HAS NOT CLOSED ALL THE WAY X 2 DAYS. PATIENT DENIES ANY PAIN OR NUMBNESS, AMBULATORY WITHOUT ASSISTANCE, APPEARS IN NO DISTRESS. Historian: Patient, Family Member Arrival Mode: Car Career Development Manager Required: No Onset (how long ago): day(s) (2) Location: LEFT FACE Quality: DROOP Radiation: Reports non-radiation Severity: moderate Onset quality: gradual Timing of current episode: constant Progression: worsening Chronicity: new Context: Denies recent illness Relieving factors: none Exacerbating factors: none Associated symptoms: Reports denies other symptoms; Denies chest pain, Denies shortness of breath Past Medical/Family History Physician Review I have reviewed the patient's past medical and family history. Any updates have been documented here. Past Medical History Recent Fever: No Clinical Suspicion of Infectio: No New/Unexplained Change in Ment: No Past Medical History: Hypertension, CHF, Liver Disease, Hyperlipedemia, Chronic Kidney Disease Other Medical History: CIRRHOSIS DIVERTICULOSIS Past Surgical History: None Social History Smoking Cessation: Never Smoker Counseling Performed: No Alcohol Use: None Any Illegal Drug Use: No TB Exposure/Symptoms: No Physically hurt or threatened: No Family History Family history of heart diseas: No Other Last Tetanus: OUT OF DATE Any Pre-Existing Lines (PICC,: No Review of Systems Review of Systems Constitutional: Reports no symptoms EENTM: Reports no symptoms Cardiovascular: Reports no symptoms Respiratory: Reports no symptoms Gastrointestinal: Reports no symptoms Genitourinary: Reports no symptoms Musculoskeletal: Reports no symptoms Integumentary: Reports no symptoms Neurological: Reports as per HPI Psychological: Reports no symptoms Endocrine: Reports no symptoms Hematological/Lymphatic: Reports no symptoms Physical Exam Related Data Allergies: Coded Allergies: No Known Allergies (Unverified , 09/13/19) Triage Vital Signs Vital Signs Date Time Temp Pulse Resp B/P (MAP) Pulse Ox O2 Delivery O2 Flow Rate FiO2 04/30/20 10:53 97.8 73 18 98/78 100 Room Air Vital signs reviewed: Yes Physical Exam CONSTITUTIONAL Constitutional: Present well-developed, Present well-nourished HENT HENT: Present normocephalic, Present atraumatic, Present oropharynx clear/moist, Present nose normal HENT L/R: Present left ext ear normal, Present right ext ear normal EYES Eyes: Reports PERRL, Reports conjunctivae normal NECK Neck: Present ROM normal PULMONARY Pulmonary: Present effort normal, Present breath sounds normal CARDIOVASCULAR Cardiovascular: Present regular rhythm, Present heart sounds normal, Present capillary refill normal, Present normal rate GASTROINTESTINAL Abdominal: Present soft, Present nontender, Present bowel sounds normal GENITOURINARY Genitourinary: Present exam deferred SKIN Skin: Present warm, Present dry MUSCULOSKELETAL Musculoskeletal: Present ROM normal NEUROLOGICAL Neurological: Present alert, Present oriented x 3, Present DTRs normal, Present no gross motor or sensory deficits, Present cranial nerve deficit (LEFT FACIAL DROOP AFFECTING EYEBROW ALSO, UNABLE TO CLOSE LEFT EYELID); Absent sensory deficit, Absent abnormal gait PSYCHOLOGICAL Psychological: Present mood/affect normal, Present judgement normal Results Laboratory Result Diagram: 04/30/20 1107 04/30/207 Laboratory Laboratory Tests Test 04/30/20 11:07 White Blood Count 8.25 x10e3/uL (4.8-10.8) Red Blood Count 3.69 x10e6/uL (4.3-5.7) Hemoglobin 11.4 g/dL (14.0-18.0) Hematocrit 35.0 % (38.2-49.6) Mean Corpuscular Volume 94.9 fL (81-99) Mean Corpuscular Hemoglobin 30.9 pg (28-32) Mean Corpuscular Hemoglobin Concent 32.6 g/dL (31-35) Red Cell Distribution Width 15.3 % (11.7-14.4) Platelet Count 127 x10e3/uL (140-360) Neutrophils (%) (Auto) 58.7 % (38.7-80.0) Lymphocytes (%) (Auto) 28.8 % (18.0-39.1) Monocytes (%) (Auto) 9.5 % (4.4-11.3) Eosinophils (%) (Auto) 1.9 % (0.0-6.0) Basophils (%) (Auto) 0.7 % (0.0-1.0) Neutrophils # (Auto) 4.8 (2.1-6.9) Lymphocytes # (Auto) 2.4 (1.0-3.2) Monocytes # (Auto) 0.8 (0.2-0.8) Eosinophils # (Auto) 0.2 (0.0-0.4) Basophils # (Auto) 0.1 (0.0-0.1) Absolute Immature Granulocyte (auto 0.03 x10e3/uL (0-0.1) Prothrombin Time 16.3 seconds (11.9-14.5) Prothromb Time International Ratio 1.25 Activated Partial Thromboplast Time 32.3 seconds (23.8-35.5) Urine Color Yellow (YELLOW) Urine Clarity Clear (CLEAR) Urine pH 5.5 (5 - 7) Urine Specific [place] 1.020 (1.010-1.025) Urine Protein 2+ (NEGATIVE) Urine Glucose (UA) Negative (NEGATIVE) Urine Ketones Negative (NEGATIVE) Urine Blood Small (NEGATIVE) Urine Nitrite Negative (NEGATIVE) Urine Bilirubin Negative (NEGATIVE) Urine Urobilinogen 0.2 mg/dL (0.2 - 1) Urine Leukocyte Esterase Negative (NEGATIVE) Urine RBC 6-10 /HPF (0-5) Urine WBC 0-5 /HPF (0-5) Urine Epithelial Cells None /LPF (NONE) Urine Bacteria Rare /HPF (NONE) Sodium Level 135 mmol/L (136-145) Potassium Level 5.1 mmol/L (3.5-5.1) Chloride Level 99 mmol/L (98-107) Carbon Dioxide Level 22 mmol/L (22-29) Anion Gap 19.1 mmol/L (8-16) Blood Urea Nitrogen 81 mg/dL (7-26) Creatinine 4.82 mg/dL (0.72-1.25) Estimat Glomerular Filtration Rate 13 ML/MIN (60-) BUN/Creatinine Ratio 17 (6-25) Glucose Level 100 mg/dL (74-118) Calcium Level 9.5 mg/dL (8.4-10.2) Total Bilirubin 0.8 mg/dL (0.2-1.2) Aspartate Amino Transf (AST/SGOT) 17 IU/L (5-34) Alanine Aminotransferase (ALT/SGPT) 19 IU/L (0-55) Alkaline Phosphatase 94 IU/L (40-150) Creatine Kinase 120 IU/L (30-200) Creatine Kinase MB 7.50 ng/mL (0-5.0) Troponin I 0.322 ng/mL (0-0.300) Total Protein 7.1 g/dL (6.5-8.1) Albumin 3.7 g/dL (3.5-5.0) Globulin 3.4 g/dL (2.3-3.5) Albumin/Globulin Ratio 1.1 (0.8-2.0) Lab results reviewed: Yes Imaging Imaging results reviewed: Yes Impressions EXAM: CHEST SINGLE (PORTABLE) DATE: 04/30/2020 11:05 AM INDICATION: CHF, left facial palsy COMPARISON: Chest radiograph from 02/25/2020 FINDINGS/IMPRESSION: Moderate right and small left pleural effusions noted, slightly more prominent than the prior examination. There are bibasilar opacities suggestive of atelectasis. A superimposed infectious process cannot be entirely excluded. There is no evidence for large focal consolidation or pneumothorax. The cardiomediastinal silhouette is partially obscured but appears grossly stable in appearance. No acute osseous abnormality is identified. Signed by: Dr. 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, NO EXT WEAKNESS - CBC, CHEM, ECG, CARDIACS, CXR, CT BRAIN - R/O DYSRHYTHMIA, CVA, CEREBRAL BLEED, RENAL FAILURE Reassessment Reassessment PT'S TROPONIN MILDLY POSITIVE BUT LIKELY DUE TO WORSENING RENAL DYSFUNCTION - WILL ADMIT TO DR MICHEL (PCP), WANTS CONSULT TO DR GARSIA WHO I ALSO SPOKE WITH Assessment & Plan Final Impression: (1) Valencia's palsy (2) Renal failure (3) Pleural effusion Depart Disposition: ADMITTED Last Vital Signs Date Time Temp Pulse Resp B/P (MAP) Pulse Ox O2 Delivery O2 Flow Rate FiO2 04/30/20 10:53 97.8 73 18 98/78 100 Room Air Home Meds Active Scripts Furosemide (LASIX) 40 Mg Tablet, 40 MG PO BID, #60 TAB Prov:JUAN ANTONIO RAMIREZ MD 02/25/20 Reported Medications Metoprolol Tartrate (METOPROLOL TARTRATE) 100 Mg Tablet, 100 MG PO DAILY 10/01/19 Atorvastatin Calcium (ATORVASTATIN CALCIUM) 10 Mg Tablet, 10 MG PO 2100, #30 TAB 09/30/19 Furosemide (FUROSEMIDE) 40 Mg Tablet, 40 MG PO BID, #30 TAB 09/15/19 Medications in the ED Sodium Chloride 500 ml @ 0 mls/hr Q0M ONCE IV ; Start 04/30/20 at 11:15; Stop 04/30/20 at 11:16; Status DC CHRISTAL GARDNER MD Apr 30, 2020 12:03
--- NOTE | 2020-04-30 13:18 | Diagnostic Imaging Report ---
Exam: Head CT without contrast History: Left-sided facial palsy Comparison studies: None Technique: Axial images were obtained from the skull base to the vertex. Coronal and sagittal images reconstructed from the axial data. Dose modulation, iterative reconstruction, and/or weight based adjustment of the mA/kV was utilized to reduce the radiation dose to as low as reasonably achievable. Radiation dose: Total DLP: 1497 mGy*cm. Estimated effective dose: DLP x 0.015 Intravenous contrast: None Findings: Exam is limited by artifacts related to patient motion. Scalp: Mild swelling in the left occipital scalp. Bones: No fractures, blastic or lytic lesions. Brain sulci: Mildly prominent. Ventricles: Mild compensatory dilatation. No hydrocephalus. Extra-axial spaces: No masses, no fluid collection. Parenchyma: No abnormal densities. No masses, hemorrhage, acute or chronic vascular insults. Sellar/suprasellar region: No abnormalities. Craniocervical junction: Patent foramen magnum. No Chiari one malformation. Included paranasal sinuses: Clear. Middle ear cavities and included mastoids: Clear. Incidental findings: Atherosclerotic calcifications in the carotid siphons. IMPRESSION: Exam limited by artifacts related to patient motion. In spite of limitations: 1. No gross acute intracranial abnormalities. Specifically, no mass, acute hemorrhage or acute cortical infarct. 2. Left occipital scalp swelling without underlying fracture. Signed by: Dr. Florentin Munoz M.D. on 04/30/2020 11:51 AM
[2020-04-30] MEDS ORDERED: ASPIRIN 81 MG CHEW TAB PO ONE (13:30)
[2020-04-30] MEDS ORDERED: SOD POLYSTYRENE SULFONATE SUSP 15 GM/60 ML BTL PO NR (15:45)
--- NOTE | 2020-04-30 16:33 | Consultation ---
DATE OF CONSULTATION: LOCATION: Emergency room. REASON FOR CONSULTATION: Management of kidney failure. HISTORY OF PRESENT ILLNESS: A 54-year-old gentleman known to me from prior admission. Baseline serum creatinine is around 1.7 or so, CKD 3 secondary to diabetic nephropathy. He has a history of prior alcoholism, tobacco addiction, and history of liver cirrhosis. He has mild splenomegaly. Last time came in with acute kidney injury. This time came in with left-sided facial paralysis. He has no other deficits. Denies any headache, neck pain, dizziness, blurred vision, nausea, vomiting, chest pain, or shortness of breath. He is moving all 4 extremities. LABORATORY DATA: Show white count 8.25 and hemoglobin 11.4. Sodium 135, potassium 5.1, bicarbonate 22 with a BUN and creatinine 81 and 4.2. Troponin 0.3 with a BNP 1279. Calcium 9.5. LFTs relatively within normal range. Urinalysis; specific gravity 1.020, rbc 6-10. He is currently sitting up, in no apparent distress. Denies shortness of breath. Workup included CT brain, please see official report. Shows no gross acute intracranial abnormalities. Chest x-ray shows moderate right and small left pleural effusion. ALLERGIES: HAS NO APPARENT DRUG ALLERGIES. SOCIAL HISTORY: He has quit smoking and alcohol use. FAMILY HISTORY: Significant for diabetes. PHYSICAL EXAMINATION: GENERAL: Awake, alert, oriented, sitting up, in no apparent distress. VITAL SIGNS: Blood pressure 100/85, pulse rate 68, afebrile, and oxygen saturation 100% on room air. HEAD AND NECK: Cornea clear. Oral mucosa moist. There is definite left-sided VII nerve palsy. Neck veins are not distended. No JVD. LUNGS: Decreased air entry at right lower zone more than left. No rales. HEART: S1 and S2 audible. No rubs or gallops. ABDOMEN: Otherwise soft and nontender. No apparent visceromegaly. EXTREMITIES: Lower extremity examination shows no edema. Currently, the patient received 500 mL normal saline bolus and aspirin 81 mg daily. IMPRESSION AND PLAN: Djlye-tb-chsabor kidney failure, has Valencia's palsy. CT negative. Despite pleural effusions and history of cirrhosis, I suspect the patient is on the dry side. Urine fairly concentrated, relatively hypotensive. Plan on starting IV normal saline. Monitor the patient's kidney function, urine output review. Mild acidosis, mild hyperkalemia. We will place on a renal diet, dose with one time dose of Kayexalate. Percy López MD SAK/MODL /[id number]
--- NOTE | 2020-04-30 18:22 | NUR ---
received report from ER nurse, Marco Antonio; pt coming to room 206.
--- NOTE | 2020-04-30 18:49 | NUR ---
transition of care report passed to security escort RN; pt has not arrived to room 206 at this time.
--- NOTE | 2020-04-30 18:51 | NUR ---
pt arrived to room 206. pt awake, alert, in stable condition. no complaints at this time. production shift supervisor RN informed.
[2020-04-30 20:00] VITALS: BP 112/96
[2020-04-30 20:20] VITALS: BP 112/96
[2020-04-30 20:46] LABS: CREATINE KINASE MB 7.8 ng/mL (0-5.0)
--- NOTE | 2020-04-30 21:06 | NUR ---
spoke to Dr. Atkins regarding troponin of 0.309; no new orders; stated no need to call back at midnight results unless greater than 4 Addendum: 05/01/20 at 0013 by Joellen Kirkland RN also stated ok to start the NS at 75ml/hr and to hold the lasix on his home med list and to start lipitor and metoprolol
[2020-04-30] MEDS ORDERED: DEXTROSE 50% SYRINGE 50 ML IV PRN (21:15)
[2020-04-30] MEDS: SODIUM CHLORIDE 0.9% 1000ML 1,000 ML IV SCH (21:31)
[2020-04-30 23:57] VITALS: BP 117/86
[2020-05-01] VITALS (7 sets, daily range): BP systolic 101–127; BP diastolic 51–83
--- NOTE | 2020-05-01 00:15 | History and Physical ---
HISTORY OF PRESENT ILLNESS: A 54-year-old gentleman with a history of chronic renal failure stage 4, history of hypertension, history of cirrhosis of liver, history of alcoholic cirrhosis, was in usual state of health until the patient started to have some facial drooping, was sent to the emergency room secondary to the nature of disease and also the comorbidities that the patient has. The patient had a CT scan, was negative, found to have Valencia's palsy. However, his troponin had some leak and also creatinine was elevated. The patient admitted for trending the troponins and possible discharge tomorrow. PHYSICAL EXAMINATION: VITAL SIGNS: Temperature is 97.8, pulse is 70, respirations 13, blood pressure is 101/82, pulse oximetry 99%. HEENT: Normocephalic, atraumatic. The patient has a facial droop. CVS: S1, S2 normal. Regular rate and rhythm. ABDOMEN: Soft, nontender, and nondistended. EXTREMITIES: No clubbing, no cyanosis, no edema. LABORATORY VALUES: White count is 8.25, hemoglobin of 11.4, hematocrit of 35, platelet count is 127. Chemistries; sodium 135, potassium 5.1, BUN of 81 and creatinine of 4.2 with EGFR of 13. Troponin was 0.332. BNP was 1279. IMAGING STUDIES: Brain CT was essentially negative as mentioned above. Left occipital scalp swelling without underlying fracture also noted and no gross acute intracranial abnormalities. Chest x-ray shows no evidence of focal consolidation or pneumothorax, and stable appearing cardiomediastinal silhouette. ASSESSMENT AND PLAN: This is Mr. Oli Ross with acute on chronic renal failure with hyperkalemia. It looks like he is dry. Also the patient has Valencia's palsy, history of cirrhosis, and history of alcoholic cirrhosis. PLAN: Continue with IV fluid, has been started by Dr. Percy López. We will continue monitoring the patient's kidney function. Acidosis will be cleared. The hyperkalemia has been treated with one time dose of Kayexalate. We will follow up with the patient and possible discharge tomorrow if it is okay with Dr. López and follow up as an outpatient from [facility]. Amrik Atkins MD ASChelsy/MODL /[id number]
[2020-05-01] MEDS: SODIUM CHLORIDE 0.9% 1000ML 1,000 ML IV SCH ×2 (05:05→17:43)
[2020-05-01 06:45] LABS: ALBUMIN 3.4 g/dL (3.5-5.0); ALBUMIN/GLOBULIN RATIO 1.2 (0.8-2.0); ANION GAP 17.3 mmol/L (8-16); CALCIUM 9.1 mg/dL (8.4-10.2); CREATININE, SERUM 4.37 mg/dL (0.72-1.25); POTASSIUM 5.3 mmol/L (3.5-5.1)
[2020-05-01 06:54] LABS: BASOPHILS % 0.5 % (0.0-1.0); EOSINOPHILS # (AUTO) 0.1 (0.0-0.4); EOSINOPHILS % 1.4 % (0.0-6.0); HEMATOCRIT 33.8 % (38.2-49.6); LYMPHOCYTES # (AUTO) 2.4 (1.0-3.2); LYMPHOCYTES % 29.6 % (18.0-39.1); MEAN CORPUSCULAR HEMOGLOBIN 30.8 pg (28-32); MEAN CORPUSCULAR HGB CONC 32.2 g/dL (31-35); MEAN CORPUSCULAR VOLUME 95.5 fL (81-99); MONOCYTES # (AUTO) 0.8 (0.2-0.8); MONOCYTES % 10.2 % (4.4-11.3); NEUTROPHILS # (AUTO) 4.6 (2.1-6.9); RED BLOOD COUNT 3.54 x10e6/uL (4.3-5.7); RED CELL DISTRIBUTION WIDTH 15.3 % (11.7-14.4)
[2020-05-01 06:59] LABS: PLATELET COUNT 107 x10e3/uL (140-360)
[2020-05-01 07:00] LABS: HEMOGLOBIN 10.9 g/dL (14.0-18.0)
[2020-05-01 07:13] LABS: CREATINE KINASE MB 7.8 ng/mL (0-5.0)
[2020-05-01] MEDS: INSULIN REGULAR, HUMAN 100 UNIT/1 ML 3ML VIAL SQ SCH ×4 (07:30→21:00)
--- NOTE | 2020-05-01 07:33 | NUR ---
critical troponin 0.302 given, Dr. Atkins was notified, no new orders.
--- NOTE | 2020-05-01 08:23 | Progress Note ---
DATE: 05/01/2020 SUBJECTIVE: The patient is a 54-year-old gentleman, who came in with left-sided facial weakness. Currently, the patient is still with weakness and currently a notable sign yesterday of choking while eating was expressed. The patient is awaiting a speech and swallow evaluation by Speech Therapy. Currently, otherwise, no symptoms. Complains of some shortness of breath on exertion, fluids ongoing because he was dry when he came in. OBJECTIVE: VITAL SIGNS: Temperature 97.3, pulse of 80, respirations of 17, blood pressure is 115/83, pulse oximetry of 92%. HEENT: With facial weakness and Valencia's palsy noted. Upper motor neuron. CVS: S1, S2 normal. Regular rhythm. LUNGS: Good air entry in the lung salazar. ABDOMEN: Soft, nontender. EXTREMITIES: No clubbing. No cyanosis. Positive for edema in the bilateral extremities. NEUROLOGICAL: Shows Valencia's palsy as mentioned above and also no focal neurological symptoms are noted. LABORATORY VALUES: White count from yesterday was normal, hemoglobin was 11.4 and hematocrit was 35, today's are pending. Chemistries; today's chemistry shows sodium 136, potassium 5.3. The patient was given Kayexalate yesterday. BUN of 80, creatinine of 4.37, EGFR of 14, glucose is 72. Troponin trended up to 0.309. Today's labs are pending. BNP was 1279. IMAGING STUDIES: From yesterday showed no evidence of consolidation, no osseous problems and moderate right and small left pleural effusion. ASSESSMENT AND PLAN: This is Mr. Oli Ross with acute on chronic renal failure. The patient has been seen by Nephrology. The patient should be in line for possible dialysis in lieu of his failing renal function and also secondary to pleural effusion and cardiac comorbidities. Currently, he also has acute on chronic congestive heart failure. Cardiology consult will also be done to follow up with his heart failure. Medicines are withheld at this time. Fluid resuscitation is ongoing to balance out his I's and O's and also his volume overload. We will request both Renal and Cardiology to see the patient. Further recommendation per clinical course. As far as his Valencia's palsy and his dysphagia, we will go ahead and do the swallow evaluation, and if speech and swallow is within normal limits, an MRI of the brain will be recommended to delineate the problem. Further recommendation per clinical course. MD GALA Harris/SHAMARL /[id number]
[2020-05-01] MEDS: METOPROLOL TARTRATE 50 MG TAB PO SCH (09:47)
[2020-05-01] MEDS: ASPIRIN 81 MG ENTERIC COATED PO SCH (09:47)
[2020-05-01] MEDS ORDERED: LACTULOSE SYRUP 20 GM/30 ML UDC PO ONE (11:45)
[2020-05-01] MEDS ORDERED: SOD POLYSTYRENE SULFONATE SUSP 15 GM/60 ML BTL PO ONE (11:45)
[2020-05-01 12:21] LABS: CREATINE KINASE MB 7.5 ng/mL (0-5.0)
--- NOTE | 2020-05-01 19:28 | NUR ---
report given to oncoming nurse, walking rounds complete.
[2020-05-01] MEDS ORDERED: ATORVASTATIN 10 MG TAB PO SCH (21:00)
[2020-05-02 04:52] VITALS: BP 119/73
[2020-05-02] MEDS: INSULIN REGULAR, HUMAN 100 UNIT/1 ML 3ML VIAL SQ SCH ×2 (07:30→11:30)
[2020-05-02 07:32] LABS: BASOPHILS % 0.6 % (0.0-1.0); EOSINOPHILS # (AUTO) 0.2 (0.0-0.4); EOSINOPHILS % 2.2 % (0.0-6.0); HEMATOCRIT 32.4 % (38.2-49.6); HEMOGLOBIN 10.5 g/dL (14.0-18.0); LYMPHOCYTES # (AUTO) 1.5 (1.0-3.2); LYMPHOCYTES % 22.1 % (18.0-39.1); MEAN CORPUSCULAR HEMOGLOBIN 31.1 pg (28-32); MEAN CORPUSCULAR HGB CONC 32.4 g/dL (31-35); MEAN CORPUSCULAR VOLUME 95.9 fL (81-99); MONOCYTES # (AUTO) 0.7 (0.2-0.8); NEUTROPHILS # (AUTO) 4.3 (2.1-6.9); NEUTROPHILS % 63.8 % (38.7-80.0); PLATELET COUNT 90 x10e3/uL (140-360); RED BLOOD COUNT 3.38 x10e6/uL (4.3-5.7); RED CELL DISTRIBUTION WIDTH 15.4 % (11.7-14.4)
[2020-05-02 07:58] LABS: ALBUMIN 3.5 g/dL (3.5-5.0); ALBUMIN/GLOBULIN RATIO 1.1 (0.8-2.0); ANION GAP 18.6 mmol/L (8-16); CALCIUM 9.2 mg/dL (8.4-10.2); CREATININE, SERUM 4.01 mg/dL (0.72-1.25); PHOSPHORUS 5.3 MG/DL (2.3-4.7); POTASSIUM 4.6 mmol/L (3.5-5.1)
--- NOTE | 2020-05-02 08:19 | Progress Note ---
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 The patient is currently doing better. Awaiting for laboratory values to be discharged. Currently, no chest pain. No shortness of breath. The patient is able to swallow. Brain CT and chest x-ray within normal limits. OBJECTIVE: VITAL SIGNS: Temperature is 98.4, pulse of 86, respirations 16, blood pressure is 119/73. HEENT: Normocephalic and atraumatic. Pupils are reactive. The patient has Valencia's palsy. Upper motor neuron. CVS: S1, S2 normal. Regular rhythm. LUNGS: Clear. ABDOMEN: Soft, nontender. EXTREMITIES: No clubbing, no cyanosis, no edema. LABORATORY VALUES: Still pending from today. Troponin last value was 0.317. Creatine kinase of 157. Glucose is in the 80s. ASSESSMENT AND PLAN: This is Mr. Oli Ross, a 54-year-old gentleman, can be discharged today depending on Dr. López's evaluation. Currently, the patient has an acute on chronic renal failure and has Valencia's palsy. CT was negative and was not noted. The patient also has history of cirrhosis. He will need dialysis in the long-term. The patient is currently stable. Further recommendation per clinical course. MD GALA Harris/MODL /[id number]
[2020-05-02] MEDS: ASPIRIN 81 MG ENTERIC COATED PO SCH (09:15)
[2020-05-02] MEDS: SODIUM CHLORIDE 0.9% 1000ML 1,000 ML IV SCH (09:15)
[2020-05-02] MEDS: METOPROLOL TARTRATE 50 MG TAB PO SCH (09:26)
[2020-05-02 10:30] VITALS: BP 103/73
[2020-05-02 10:31] VITALS: BP 103/73
[2020-05-02 13:58] VITALS: BP 91/72
--- NOTE | 2020-05-02 14:44 | NUR ---
The pt's iv was removed and he was provided follow up directions and home care information
--- OUTSIDE RECORDS SUMMARY | 2020-05-08 17:26 | XMS REPORT | Continuity of Care Document ---
Author Author [facility] t Organization [facility] Address [address] [place] [address] Phone Unavailable Care Team Providers Care Tugboat Engineer Name Role Phone MD Davidson MICHEL PCP Denis GARDNER Attphys Unavailable Tristian RAMIREZ Attphys Unavailable Kamini DAVALOS Attphys Unavailable Davidson MICHEL Attphys Unavailable ADRIEL DEY Attphys Unavailable Davidson MICHEL Admphys Unavailable Payers Payer Name Policy Type Policy Number Effective Date Expiration Date Davidson Montes De Oca [id number] [facility] Problems Condition Name Condition Details Condition Category Status Onset Date Resolution Date Last Treatment Date Treating Clinician Comments Source Acute on chronic congestive heart failure Problem Active [facility] Pulmonary edema Problem Active [facility] Allergies, Adverse Reactions, Alerts This patient has no known allergies or adverse reactions. Social History Social Habit Start Date Stop Date Quantity Comments Source Sex Assigned At 1965 00:00:00 1965 00:00:00 Male [facility] Medications Ordered Medication Name Filled Medication Name Start Date Stop Da te Current Medication? Ordering Clinician Indication Dosage Frequency Signature (SIG) Comments Components Source Furosemide (Lasix) 40 Mg TABLET Furosemide (Lasix) 40 Mg TAB LET 2020-02-25 16:52:00 Yes 40 Twice A Day [facility] Atorvastatin Calcium Atorvastatin Calcium Yes 10 Today At 9:00PM [facility] Furosemide Furosemide Yes 40 Twice A Day [facility] Metoprolol Tartrate Metoprolol Tartrate Yes 100 Daily [facility] Metoprolol Metoprolol 2019-10-01 00:00:00 No 100 Mary ly [facility] Vital Signs Vital Name Observation Time Observation Value Comments Source Weight 2020-02-25 14:01:00 207 [lb_av] [facility] BMI (Body Mass Index) 2020-02-25 14:01:00 33.4 kg/m2 [facility] Body Temperature 2019-10-06 23:55:00 97.9 [degF] [facility] Procedures Procedure Date / Time Performed Performing Clinician Sourc e US Gallbladder 2019-10-01 00:00:00 [facility] Ultrasound, renal 2019-10-01 00:00:00 [facility] CT of abdomen and pelvis without contrast 2019-09-30 00:00:00 [facility] Plan of Care Planned Activity Planned Date Details Comments Source Instructions Congestive Heart Failure [facility] Encounters Start Date/Time End Date/Time [facility] En[facility] ID Source 2020-02-25 14:21:00 2020-02-25 17:08:00 Departed Emergency Room 1 JUAN ANTONIO RAMIREZ [facility] [id number] [facility] 2019-10-06 19:32:00 2019-10-07 00:20:00 Departed Emergency Room 1 ANOOP JENA [facility] [id number] [facility] 2019-09-30 13:43:00 2019-10-03 15:58:00 Discharged Inpatient (obs) 1 DELONTE MICHELAHAM [facility] [id number] [facility] 2019-09-13 16:49:00 2019-09-15 16:04:00 Discharged Inpatient (obs) 1 ADRIEL DEY [facility] [id number] [facility] Results Test Description Test Time Test Comments Results Result Comments Source CT BRAIN WO 2020-04-30 11:46:00 [facility] 1965 Sex: M [facility] [address] [address] Patient Name: CORINA KAUFMAN MR #: [id number] : 1965 Age/Sex: 54/M Req #: [id number] Adm Physician: Ordered by: CHRISTAL GARDNER MD Report #: [id number] Location: Room/Bed: Procedure: [id number] CT/CT BRAIN WO Exam Date: 04/30/20 Exam Time: 1100 REPORT STATUS: Signed Exam: Head CT without contrast History: Left-sided facial palsy Comparison studies: None Technique: Axial images were obtained from the skull base to the vertex. Coronal and sagittal images reconstructed from the axial data. Dose modulation, iterative reconstruction, and/or weight based adjustment of the mA/kV was utilized to reduce the radiation dose to as low as reasonably achievable. Radiation dose: Total DLP: 1497 mGy*cm. Estimated effective dose: DLP x 0.015 Intravenous contrast: None Findings: Exam is limited by artifacts related to patient motion. Scalp: Mild swelling in the left occipital scalp. Bones: No fractures, blastic or lytic lesions. Brain sulci: Mildly prominent. Ventricles: Mild compensatory dilatation. No hydrocephalus. Extra-axial spaces: No masses, no fluid collection. Parenchyma: No abnormal densities. No masses, hemorrhage, acute or chronic vascular insults. Sellar/suprasellar region: No abnormalities. Craniocervical junction: Patent foramen magnum. No Chiari one malformation. Included paranasal sinuses: Clear. Middle ear cavities and included mastoids: Clear. Incidental findings: Atherosclerotic calcifications in the carotid siphons. IMPRESSION: Exam limited by artifacts related to patient motion. In spite of limitations: 1. No gross acute intracranial abnormalities. Specifically, no mass, acute hemorrhage or acute cortical infarct. 2. Left occipital scalp swelling without underlying fracture. Signed by: Dr. Aram Dasilva M.D. on 04/30/2020 11:51 AM Dictated By: ARAM DASILVA MD 115 Transcribed By: NAHED on 04/30/20 115 COPY TO: CHRISTAL GARDNER MD CHEST SINGLE (PORTABLE) 2020-04-30 11:41:00 [facility] 1965 Sex: M [address] [address] Patient Name: CORINA KAUFMAN MR #: [id number] : 1965 Age/Sex: 54/M Req #: [id number] Adm Physician: Ordered by: CHRISTAL GARDNER MD Report #: [id number] Location: Room/Bed: Procedure: [id number] DX/CHEST SINGLE (PORTABLE) Exam Date: 04/30/20 Exam Time: 1105 REPORT STATUS: Signed EXAM: CHEST SINGLE (PORTABLE) DATE: 04/30/2020 11:05 AM INDICATION: CHF, left facial palsy COMPARISON: Chest radiograph from 02/25/2020 FINDINGS/IMPRESSION: Moderate right and small left pleural effusions noted, slightly more prominent than the prior examination. There are bibasilar opacities suggestive of atelectasis. A superimposed infectious process cannot be entirely excluded. There is no evidence for large focal consolidation or pneumothorax. The cardiomediastinal silhouette is partially obscured but appears grossly stable in appearance. No acute osseous abnormality is identified. Signed by: Dr. Virgilio Pfeiffer MD on 04/30/2020 11:43 AM Dictated By: RUDDY PFEIFFER MD 1143 Transcribed By: NAHED on 04/30/20 1143 COPY TO: CHRISTAL GARDNER MD CHEST SINGLE (PORTABLE) 2020-02-25 15:43:[address] [address] Patient Name: CORINA KAUFMAN MR #: [id number] : 1965 Age/Sex: 54/M Req #: [id number] Adm Physician: Ordered by: JUAN ANTONIO RAMIREZ MD Report #: [id number] Location: ER Room/Bed: Procedure: [id number] DX/CHEST SINGLE (PORTABLE) Exam Date: 02/25/20 Exam Time: 1415 REPORT STATUS: Signed TECHNIQUE: Frontal view of the chest. INDICATION: CP [id number] COMPARISON: 09/13/2019 DISCUSSION: Limited evaluation due to portable technique. Lines and hardware: Overlying EKG leads are noted Heart and mediastinum: Stable car diomegaly and central vascular congestion. Lungs and pleura: Right basilar consolidation and left basilar patchy opacities are noted with blunting of the costophrenic angles. Prominent vascular markings are noted. Negative for large pneumothorax. Soft tissues and bones: No acute abnormality. IMPRESSION: Right basilar consolidation and left basilar patchy opacities are concerning for multifocal infection. Aspiration is a consideration. Recommend follow-up to resolution. Signed by: Jalyn Turcios MD on 02/25/2020 3:45 PM Dictated By: JALYN TURCIOS MD 154 Transcribed By: NAHED on 02/25/20 1545 COPY TO: JUAN ANTONIO RAMIREZ MD Prothrombin time (PT) in platelet poor plasma by coagu lation assay 2020-02-25 14:36:00 Test Item Prothrombin Time (test code = 5902-2) 16.3 11.9-14.5 [facility] CenterINR in Platelet poor plasma by Coagulation uaqbd1102-39-71 14:36:00* Test Item Value Reference Range Interpretation Comments Prothromb Time International Ratio (test code = 6301-6) 1.24 Oral Anticoagulant Therapy INR Values:1. Low Intensity Therapy 1.5 - 2.02 . Moderate Intensity Therapy 2.0 - 3.03. High Intensity Therapy(1) 2.5 - 3. 54. High Intensity Therapy(2) 3.0 - 4.05. Panic Value INR > 5.0 [facility] CenterBlood leukocytes automated count (number/volume)2020-02-25 14:09:00* Test Item Value Reference Range Interpretation Comments White Blood Count (test code = 6690-2) 10.12 4.8-10.8 [facility] CenterBlood erythrocytes automated count (number/volume)2020-02-25 14:09:00* Test Item Value Reference Range Interpretation Comments Red Blood Count (test code = 789-8) 3.64 4.3-5.7 [facility] CenterBl[facility] hemoglobin measurement (moles/volume)2020-02-25 14:09:00* Test Item Value Reference Range Interpretation Comments Hemoglobin (test code = 58830-6) 11.1 14.0-18.0 [facility] CenterAutomated blood hematocrit (volume fraction)2020-02-25 14:09:00* Test Item Value Reference Range Interpretation Comments Hematocrit (test code = 4544-3) 35.1 38.2-49.6 [facility] CenterAutomated erythrocyte mean corpuscular zbbpdu7362-64-16 14:09:00* Test Item Value Reference Range Interpretation Comments Mean Corpuscular Volume (test code = 787-2) 96.4 81-99 [facility] CenterAutomated erythrocyte mean corpuscular hemoglobin (mass per erythrocyte)2020-02-25 14:09:00* Test Item Value Reference Range Interpretation Comments Mean Corpuscular Hemoglobin (test code = 785-6) 30.5 28-32 [facility] CenterAutomated erythrocyte mean corpuscular hemoglobin concentration measurement (mass/volume)2020-02-25 14:09:00* Test Item Value Reference Range Interpretation Comments Mean Corpuscular Hemoglobin Concent (test code = 786-4) 31.6 31-35 [facility] CenterRDW IjwLq-Yiv2741-64-24 14:09:00* Test Item Value Reference Range Interpretation Comments Red Cell Distribution Width (test code = 87886-6) 15.0 11.7 -14.4 [facility] CenterAutomated blood platelet count (count/volume)2020-02-25 14:09:00* Test Item Value Reference Range Interpretation Comments Platelet Count (test code = 777-3) 128 140-360 [facility] Lancastered blood segmented neutrophil count as percentage of total slrtyzrrpj6458-49-16 14:09:00* Test Item Value Reference Range Interpretation Comments Neutrophils (%) (Auto) (test code = 80179-6) 54.6 38.7-80.0 [facility] CenterAutomated blood lymphocyte count as percentage ot total ypzriifcng9103-72-52 14:09:00* Test Item Value Reference Range Interpretation Comments Lymphocytes (%) (Auto) (test code = 736-9) 31.9 18.0-39.1 [facility] CenterAutomated blood monocyte count as percentage of total enkrkudgcd8784-28-80 14:09:00* Test Item Value Reference Range Interpretation Comments Monocytes (%) (Auto) (test code = 5905-5) 11.0 4.4-11.3 [facility] CenterAutomated blood eosinophil count as percentage of total cupggvggtk1846-36-94 14:09:00* Test Item Value Reference Range Interpretation Comments Eosinophils (%) (Auto) (test code = 713-8) 1.7 0.0-6.0 [facility] CenterAutomated blood basophil count as percentage of total cvqtpgplsd4156-73-89 14:09:00* Test Item Value Reference Range Interpretation Comments Basophils (%) (Auto) (test code = 706-2) 0.5 0.0-1.0 [facility] CenterFluoroscopic procedure less than one hour llpktqrk8369-75-21 14:09:00* Test Item Value Reference Range Interpretation Comments IM GRANULOCYTES % (test code = IM GRANULOCYTES %) 0.3 0.0- 1.0 [facility] CenterAutomated blood neutrophil count 2020-02-25 14:09:00* Test Item Value Reference Range Interpretation Comments Neutrophils # (Auto) (test code = 751-8) 5.5 2.1-6.9 [facility] CenterBlood lymphocytes count (number/volume) 2020-02-25 14:09:00* Test Item Value Reference Range Interpretation Comments Lymphocytes # (Auto) (test code = 25236-7) 3.2 1.0-3.2 [facility] CenterBlood monocytes automated count (number/volume)2020-02-25 14:09:00* Test Item Value Reference Range Interpretation Comments Monocytes # (Auto) (test code = 742-7) 1.1 0.2-0.8 [facility] CenterAutomated blood eosinophil count 2020-02-25 14:09:00* Test Item Value Reference Range Interpretation Comments Eosinophils # (Auto) (test code = 711-2) 0.2 0.0-0.4 [facility] CenterAutomated blood basophil count (count/volume)2020-02-25 14:09:00* Test Item Value Reference Range Interpretation Comments Basophils # (Auto) (test code = 704-7) 0.1 0.0-0.1 [facility] CenterFluoroscopic procedure less than one hour grjcdigq9725-27-69 14:09:00* Test Item Value Reference Range Interpretation Comments Absolute Immature Granulocyte (auto (johnathan t code = Absolute Immature Granulocyte (auto) 0.03 0-0.1 [facility] CenterFibrin D-dimer DDU measurement in platelet poor plasma (mass/volume)2020-02-25 14:09:00* Test Item Value Reference Range Interpretation Comments D-Dimer Quantitative (PE/DVT) (test code = 88420-6) 762 0- 400 The Triage D-Dimer Test has not been evaluated for use as sole evidence for the presence or absence of PE or DVT. As with all in vitro diagnostic tests, the te st results should be interpreted by the physician in conjunction with clinical f indings and other test results.Test results are reported in D-dimer units.[facility] Hospitaler[facility] or plasma sodium measurement (moles/volume)2020-02-25 14:09:00* Test Item Value Reference Range Interpretation Comments Sodium Level (test code = 2951-2) 137 136-145 [facility] Hospitalerum or plasma potassium measurement (moles/volume)2020-02-25 14:09:00* Test Item Value Reference Range Interpretation Comments Potassium Level (test code = 2823-3) 4.4 3.5-5.1 [facility] Hospitalerum or plasma chloride measurement (moles/volume)2020-02-25 14:09:00* Test Item Value Reference Range Interpretation Comments Chloride Level (test code = 2075-0) 104 98-107 [facility] Hospitalerum or plasma carbon dioxide, total measurement (moles/volume)2020-02-25 14:09:00* Test Item Value Reference Range Interpretation Comments Carbon Dioxide Level (test code = 2028-9) 21 22-29 [facility] Hospitalerum or plasma anion dxi1218-32-35 14:09:00* Test Item Value Reference Range Interpretation Comments Anion Gap (test code = 10587-3) 16.4 8-16 [facility] Hospitalerum or plasma urea nitrogen measurement (mass/volume)2020-02-25 14:09:00* Test Item Value Reference Range Interpretation Comments Blood Urea Nitrogen (test code = 3094-0) 55 7-26 [facility] Hospitalerum or plasma creatinine measurement (mass/volume)2020-02-25 14:09:00* Test Item Value Reference Range Interpretation Comments Creatinine (test code = 2160-0) 2.66 0.72-1.25 [facility] Hospitalerum or plasma urea nitrogen/creatinine mass vuhoy2024-03-96 14:09:00* Test Item Value Reference Range Interpretation Comments BUN/Creatinine Ratio (test code = 3097-3) 21 6-25 [facility] CenterEstimated glomerular filtration rate (GFR) ipcfuxuvmtnge9751-84-53 14:09:00* Test Item Value Reference Range Interpretation Comments Estimat Glomerular Filtration Rate (test code = 689819459) 25 >60 Ranges were taken from the National Kidney Disease Education Program and the [facility] literature.Reference ranges:60 or greater: Ahezpi10-92 ( for 3 consecutive months): Chronic kidney disease 15 or less: Kidney failureSaint [facility]'s Round [facility] Medical CenterGlucose oemyymnxcpb6306-00-23 14:09:00* Test Item Value Reference Range Interpretation Comments Glucose Level (test code = HAE9511) 95 74-118 [facility] Hospitalerum or plasma calcium measurement (mass/volume)2020-02-25 14:09:00* Test Item Value Reference Range Interpretation Comments Calcium Level (test code = 77878-8) 9.3 8.4-10.2 [facility] Hospitalerum or plasma total bilirubin measurement (mass/volume)2020-02-25 14:09:00* Test Item Value Reference Range Interpretation Comments Total Bilirubin (test code = 1975-2) 0.9 0.2-1.2 [facility] CenterFluoroscopic procedure less than one hour hudtdyws1037-92-99 14:09:00* Test Item Value Reference Range Interpretation Comments Aspartate Amino Transf (AST/SGOT) (test code = Aspartate Amino Transf (AST/SGOT)) 23 5-34 [facility] Hospitalerum or plasma alanine aminotransferase measurement (enzymatic activity/volume)2020-02-25 14:09:00* Test Item Value Reference Range Interpretation Comments Alanine Aminotransferase (ALT/SGPT) (test code = 1742-6) 24 0-55 [facility] Hospitalerum or plasma protein measurement (mass/volume)2020-02-25 14:09:00* Test Item Value Reference Range Interpretation Comments Total Protein (test code = 2885-2) 7.3 6.5-8.1 [facility] Hospitalerum or plasma albumin measurement (mass/volume)2020-02-25 14:09:00* Test Item Value Reference Range Interpretation Comments Albumin (test code = 1751-7) 3.8 3.5-5.0 [facility] CenterPlasma globulin measurement (mass/volume) 2020-02-25 14:09:00* Test Item Value Reference Range Interpretation Comments Globulin (test code = 90740-2) 3.5 2.3-3.5 [facility] Hospitalerum or plasma albumin/globulin mass ebiiz8180-01-16 14:09:00* Test Item Value Reference Range Interpretation Comments Albumin/Globulin Ratio (test code = 1759-0) 1.1 0.8-2.0 [facility] Hospitalerum or plasma alkaline phosphatase measurement (enzymatic activity/volume)2020-02-25 14:09:00* Test Item Value Reference Range Interpretation Comments Alkaline Phosphatase (test code = 6768-6) 107 40-150 [facility] CenterBNP Yxc-xKtn9631-67-24 14:09:00* Test Item Value Reference Range Interpretation Comments B-Type Natriuretic Peptide (test code = 98485-0) 983.7 0-100 [facility] Hospitalerum or plasma creatine kinase measurement (enzymatic activity/volume)2020-02-25 14:09:00* Test Item Value Reference Range Interpretation Comments Creatine Kinase (test code = 2157-6) 99 30-200 [facility] Hospitalerum or plasma creatine kinase MB measurement (mass/volume)2020-02-25 14:09:00* Test Item Value Reference Range Interpretation Comments Creatine Kinase MB (test code = 31445-8) 5.30 0-5.0 [facility] CenterTroponin I measurement by highly sensitive enzyme zmeczmztrwa1742-74-93 14:09:00* Test Item Value Reference Range Interpretation Comments Troponin I (test code = 43498-8) 0.270 0-0.300 [facility] CenterABDOMEN 2 YCZG7413-08-17 23:11:00 [facility] [address] [place] [address] Patient Name: CORINA KAUFMAN MR #: [id number] : 1965 Age/Sex: 54/M Req #: [id number] Adm Physician: Ordered by: STACI GALEANA BOOKKEEPER RECEPTIONIST Report #: [id number] Location: ER Room/Bed: Procedure: [id number] DX /ABDOMEN 2 VIEW Exam Date: 10/06/19 Exam Time: 2240 REPORT STATUS: Signed [facility]. CPT 05784 CLINICAL HISTORY: Pain TECHNIQUE: Flat and upright views of the abdomen obtained. COMPARISON: CT abdomen/pelvis . Medical Devices: None Bowel: Unremarkable bowel gas pattern. No dilated bowel loops or pneumatosis. No air-fluid levels. Calcification s: None over the renal shadows or along the expected course of the ureters Organomegaly: None Free air: None Lung bases: Clear Bones: Dege nerative changes of the spine. IMPRESSION: Unremarkable bowel gas apolonia fadi. Signed by: Dr. Indra Champion MD on 10/06/2019 11:12 PM Dicta varun By: INDRA CHAMPION MD 11 Transcribed By: NAHED on 10/06/192311 COPY TO: STACI GALEANA NP Urine color eimjsopprcqzz2726-19-71 21:10:00* Test Item Value Reference Range Interpretation Comments Urine Color (test code = 5778-6) YELLOW YELLOW [facility] CenterUrine dojimpf3492-34-16 21:10:00* Test Item Value Reference Range Interpretation Comments Urine Clarity (test code = 08247-5) CLEAR CLEAR [facility] Hospitalpecific gravity of Urine by Test strip 2019-10-06 21:10:00* Test Item Value Reference Range Interpretation Comments Urine Specific [place] (test code = 5811-5) 1.020 1.010-1.02 5 [facility] CenterUrine pH measurement by automated test ofrrx2591-81-80 21:10:00* Test Item Value Reference Range Interpretation Comments Urine pH (test code = 21267-8) 6 5-7 [facility] CenterUrine leukocyte esterase detection by fxtezqfc1416-24-52 21:10:00* Test Item Value Reference Range Interpretation Comments Urine Leukocyte Esterase (test code = 5799-2) NEGATIVE NEGATIVE [facility] CenterUrine nitrite ocfgkkegl5825-32-71 21:10:00* Test Item Value Reference Range Interpretation Comments Urine Nitrite (test code = 13791-2) NEGATIVE NEGATIVE [facility] CenterUrine protein measurement by test strip (mass/volume)2019-10-06 21:10:00* Test Item Value Reference Range Interpretation Comments Urine Protein (test code = 5804-0) 1+ NEGATIVE [facility] CenterUrine glucose yxfedwgbe1536-05-40 21:10:00* Test Item Value Reference Range Interpretation Comments Urine Glucose (UA) (test code = 2349-9) NEGATIVE NEGATIVE [facility] CenterUrine ketones detection by automated test auegn1211-56-55 21:10:00* Test Item Value Reference Range Interpretation Comments Urine Ketones (test code = 47582-1) NEGATIVE NEGATIVE [facility] CenterUrine urobilinogen measurement by test strip (mass/volume)2019-10-06 21:10:00* Test Item Value Reference Range Interpretation Comments Urine Urobilinogen (test code = 10774-2) 0.2 0.2-1 [facility] CenterUrine total bilirubin measurement (mass/volume)2019-10-06 21:10:00* Test Item Value Reference Range Interpretation Comments Urine Bilirubin (test code = 1978-6) NEGATIVE NEGATIVE [facility] CenterUrine erythrocytes twijxxkze6445-44-64 21:10:00* Test Item Value Reference Range Interpretation Comments Urine Blood (test code = 89225-0) 1+ NEGATIVE [facility] CenterAutomated urine sediment leukocyte count by microscopy (number/high power field)2019-10-06 21:10:00* Test Item Value Reference Range Interpretation Comments Urine WBC (test code = 5821-4) 6-10 0-5 [facility] CenterErythrocytes detection in urine sediment by light syiuelcdfy3978-80-70 21:10:00* Test Item Value Reference Range Interpretation Comments Urine RBC (test code = 74856-6) 6-10 0-5 [facility] CenterBacteria detection in urine sediment by light yijzctlnie9977-60-82 21:10:00* Test Item Value Reference Range Interpretation Comments Urine Bacteria (test code = 03324-7) RARE NONE [facility] CenterEpithelial cells detection in urine sediment by light wnbnxaiois9068-79-81 21:10:00* Test Item Value Reference Range Interpretation Comments Urine Epithelial Cells (test code = 85126-6) FEW NONE [facility] CenterPlatelet cebuqitxdx8284-31-88 20:34:00* Test Item Value Reference Range Interpretation Comments Platelet Morphology Comment (test code = 46698-7) See Comment NO EDTA PLT CLUMPS SEENSaint [facility]'s [facility] CenterUS RENAL RETROPERITONEAL ZALO0772-57-37 19:42:00 [facility] [address] [place] [address] Patient Name: CORINA KAUFMAN MR #: [id number] : 1965 Age/Sex: 54/M Req #: [id number] [facility] Physician: ALBERTO MICHEL MD Ordered by: LING GARSIA MD, MD Report #: [id number] Location: [facility] Room/Bed: [facility] Procedure: [id number] U S/US RENAL RETROPERITONEAL COMP Exam Date: 10/01/19 Exam Time: 1808 REPORT STATUS: Sign ed EXAM: Retroperitoneal Ultrasound INDICATION: hira COMPARISON: None T ECHNIQUE: Transverse and longitudinal images of the kidneys and bladder were o btained. FINDINGS: Right Kidney: Size: 9.1 cm Ec hogenicity: Normal Parenchymal thickness: Normal Collecting sy stem: No hydronephrosis Stones: None Cyst/Mass: None Left Kid vick: Size: 9.9 cm Echogenicity: Normal Parenchymal thic kness: Normal Collecting system: No hydronephrosis Stones: None Cyst/Mass: None Bladder: Normal Prostate measures 12.7 x 2.9 x 4.0 cm total volume of 13.2 cc IMPRESSION: No nephroureterolithiasis or hydronephrosis. Signed by: Maury Abraham MD on 10/01/2019 7:55 PM Dictated By: MAURY ABRAHAM MD 54 Transcribed By: NAHED on 10/01/191954 COPY TO : LING GARSIA HEPTOBILIARY W ICVQP3027-89-30 17:21:00 [place] [address] Patient Name: CORINA KAUFMAN MR #: [id number] : 1965 Age/Sex: 54/M Req #: [id number] [facility] [place] Physician: ALBERTO MICHEL MD Ordered by: ARAM TERRAZAS MD Report #: [id number] Location: [facility] Room/Bed: [facility] Procedure: [id number] NM/ HEPTOBILIARY W PHARM Exam Date: 10/01/19 Exam Time: 1200 REPORT STATUS: Signed Hepat obiliary Scan with Gallbladder Ejection Fraction Clinical information: R10. 11 RUQ pain Technique: Following intravenous administration of 6.6 millicur ies of Tc-99m mebrofenin, dynamic images of the abdomen in the anterior projec tion were obtained through 60 minutes. Sincalide (CCK analog) 1.9 micrograms was administered intravenously over 30 minutes with additional imaging for d etermination of gallbladder ejection fraction. Discussion: Perfusion of the liver is normal. Extraction of tracer by the liver parenchyma is normal. Tr acer appears promptly within the biliary tract. The gallbladder begins to derrick l by 16 minutes post injection of tracer and fills adequately. Tracer is see n in the small bowel during the sincalide infusion. The gallbladder ejection fraction with sincalide is 8% (normal greater than 40%). Impression: 1. Filling of the gallbladder excludes acute cystic duct obstruction/acute cholecystitis. 2. The decreased gallbladder ejection fraction of 8% supports the clinical diagnosis of chronic cholecystitis/gallbladder dyskinesia. S igned by: Dr. Gaston Sandoval M.D. on 10/01/2019 5:23 PM Dictated By: GASTON VÁZQUEZ MD 22 Transcribed By: NAHED on 10/01/191722 COPY TO: ARAM TERRAZAS MD Urine protein measurement (mass/volume)2019-10-01 13:50:00* Test Item Value Reference Range Interpretation Comments Urine Random Total Protein (test code = 2888-6) 36.1 1-14 [facility] creatinine measurement (mass/volume)2019-10-01 13:50:00* Test Item Value Reference Range Interpretation Comments Urine Creatinine (test code = 2161-8) 65.16 63-166 [facility] CenterRandom urine protein/creatinine ratio 2019-10-01 13:50:00* Test Item Value Reference Range Interpretation Comments Urine Protein/Creatinine Ratio (test code = 44295-4) 0.00 [facility] CenterUS [id number] 09:47:00 [facility] [address] [place] [address] Patient Name: CORINA KAUFMAN MR #: [id number] : 1965 Age/Sex: 54/M Req #: [id number] Adm Physician: ALBERTO MICHEL MD Ordered by: ARAM TERRAZAS MD Report #: [id number] Location: MED/SURG3 Room/Bed: [facility] Procedure: [id number] US/ US GALLBLADDER Exam Date: 10/01/19 Exam Time: 0822 REPORT STATUS: Signed EXAM: Right upper quadrant abdominal ultrasound INDICATION: Right upper quadrant dorian n COMPARISON: CT abdomen pelvis of 09/30/2019 TECHNIQUE: Transverse and tyree gitudinal images of the right upper quadrant abdomen were obtained FINDIN GS: Liver: Size: 14.2 cm in the right midclavicular line, normal Appe arance: Normal echogenicity, nodular contour Mass: No focal masses Gallbl adder: The gallbladder is distended, measuring up to 13.1 x 6.1 cm. There is s ludge within the gallbladder. No gallstones. No gallbladder wall thickening or pericholecystic fluid. Gallbladder wall measures up to 2 mm. Negative sonogra phic Barahona's sign. Bile Ducts: Intrahepatic Ducts: No dilatation Extra hepatic Ducts: Common bile duct measures 4 mm Pancreas: Visualized portions of the pancreatic head, neck and proximal body are normal. Kidney: The righ t kidney measures 9.8 cm without evidence of hydronephrosis or stone. Ve ssels: Aorta: Visualized portions are normal Inferior Vena Cava: Visualized portions are normal Main Portal Vein: 1.1 cm, normal size with hepatopetal koby w. Free Fluid: No ascites or pleural effusion IMPRESSION: Sludge i n the distended gallbladder. No specific sonographic evidence of cholecystitis . Mildly nodular liver surface contour can be seen in early cirrhosis. Signed by: Ana Leblanc MD on 10/01/2019 9:50 AM Dictated By: ANA Estevez 9 Transcribed By: MASON DEY on 10/01/19949 COPY TO: ARAM TERRAZAS MD Serum or plasma uric acid measurement (mass/volume)2019-10-01 05:40:00* Test Item Value Reference Range Interpretation Comments Uric Acid (test code = 3084-1) 12.9 4.8-8.0 [facility] CenterCT ABDOMEN/PELVIS [id number] 12:58:00 [place] [address] Patient Name: CORINA KAUFMAN MR #: [id number] : 4 Age/Sex: 54/M Req #: [id number] Adm Physician: Ordered by: STACI GALEANA BOOKKEEPER RECEPTIONIST Report #: [id number] Location: Room/Bed: Procedure: [id number] CT /CT ABDOMEN/PELVIS WO Exam Date: Exam Time: REPORT STATUS: Signed EXAM: CT Abdomen and Pelvis WITHOUT contrast INDICATION: Abdominal pain. COMPARISON: None. TECHNIQUE: Abdomen and pelvis were scanned utilizing a multidetector helical scanner from the lung base to the pubic symphysis without administration of IV contrast. Absence of intravenous contrast decreases sensitivity for detection of focal lesions and vascular pathology. Coronal and sagittal reformations we re obtained. Routine protocol was performed. IV CONTRAST: None. ORAL CONTRAST: Gastrografin water mixture. RADIATIO N DOSE: Total DLP: 767.72 mGy*cm Estimated effective dose: (DLP x 0.015 x size factor) mSv COMPLICATIONS: None FINDINGS: LINES and TUBES: None. LOWER THORAX: There is bibasilar atelectasis. HEPATOBILIARY: Nodular hepatic contour. No focal hepatic lesions. No biliary ductal dilation. GALLBLADDER: The gallbladder is hydropic measuring 14.2 x 6.4 cm. Mildly high attenuation gallbladder content suggestive of sludge. No wall thickening. SPLEEN: Mildly enlarged measuring 14.2 cm in craniocaudal dimension. PANCREAS: No focal masses or ductal dilatation. ADRENALS : No adrenal nodules KIDNEYS/URETERS: No hydronephrosis. No cystic or solid mass lesions. No stones. Bilateral perinephric stranding. GI TRACT : No abnormal distention, wall thickening, or evidence of bowel obstruction. There are diverticula within the colon without evidence of diverticulitis. Ap pendix is normal. PELVIC ORGANS/BLADDER: The prostate is mildly enlarged me asuring 4.9 x 3.9 cm. LYMPH NODES: No lymphadenopathy. VESSELS: There is mild atherosclerotic disease in the aorta and major arterial branches. PERITONEUM / RETROPERITONEUM: There is mild diffuse increased density of the peritoneal fat. BONES: There are degenerative changes in the lumbar spine. SOFT TISSUES: Unremarkable. IMPRESSION: 1. Markedly hy dropic gallbladder. Correlate for right upper quadrant pain. If clinical anish rn for cholecystitis, consider ultrasound of gallbladder. 2. Cirrhotic hepati c morphology. 3. Mild splenomegaly. 4. Mild diverticulosis without acute d iverticulitis. Signed by: DrDavian Zaragoza M.D. on 09/30/2019 1:28 PM Dictated By: BATSHEVA ZARAGOZA MD, MD 27 Transcribed By: NAHED on 09/30/198 [employer]IGRATION AGENT Y TO: STACI GALEANA BOOKKEEPER RECEPTIONIST Sodium Hfopt9786-99-40 07:29:00* Test Item Value Reference Range Interpretation Comments Sodium Level (test code = 2951-2) 141 136-145 [facility] CenterPotassium Rvbnh4850-36-40 07:29:00* Test Item Value Reference Range Interpretation Comments Potassium Level (test code = 2823-3) 3.7 3.5-5.1 [facility] CenterChloride Aaurn8300-44-13 07:29:00* Test Item Value Reference Range Interpretation Comments Chloride Level (test code = 2075-0) 104 98-107 [facility] CenterCarbon Dioxide Qkpsg2741-04-77 07:29:00* Test Item Value Reference Range Interpretation Comments Carbon Dioxide Level (test code = 2028-9) 32 22-29 H [facility] CenterAnion Uwu3702-99-97 07:29:00* Test Item Value Reference Range Interpretation Comments Anion Gap (test code = 58454-9) 8.7 8-16 [facility] CenterBlood Urea Htqqeubj3818-43-17 07:29:00* Test Item Value Reference Range Interpretation Comments Blood Urea Nitrogen (test code = 3094-0) 20 7-26 [facility] CenterCreatinine2020-03-14 07:29:00* Test Item Value Reference Range Interpretation Comments Creatinine (test code = 2160-0) 1.31 0.72-1.25 H [facility] CenterBUN/Creatinine Vcmga2897-11-76 07:29:00* Test Item Value Reference Range Interpretation Comments BUN/Creatinine Ratio (test code = 3097-3) 15 6-25 [facility] CenterEstimat Glomerular Filtration Rate 2019-09-15 07:29:00* Test Item Value Reference Range Interpretation Comments Estimat Glomerular Filtration Rate (test code = 948333415) 57 >60 L Ranges were taken from the National Kidney Disease Education Program and the [facility] Kidney Foundation literature.Reference ranges:60 or greater: Ylsuab85-46 ( for 3 consecutive months): Chronic kidney disease 15 or less: Kidney failureSaint [facility]'s Round [facility] Medical CenterGlucose Vwlxu3312-27-51 07:29:00* Test Item Value Reference Range Interpretation Comments Glucose Level (test code = NDW2735) 84 74-118 [facility] CenterCalcium Epvaw7534-34-61 07:29:00* Test Item Value Reference Range Interpretation Comments Calcium Level (test code = 77028-8) 9.1 8.4-10.2 [facility] CenterWhite Blood Kbztp6745-09-27 07:19:00* Test Item Value Reference Range Interpretation Comments White Blood Count (test code = 6690-2) 5.50 4.8-10.8 [facility] CenterRed Blood Eozau0301-65-14 07:19:00* Test Item Value Reference Range Interpretation Comments Red Blood Count (test code = 789-8) 3.78 4.3-5.7 L [facility] CenterHemoglobin2020-03-14 07:19:00* Test Item Value Reference Range Interpretation Comments Hemoglobin (test code = 91969-4) 11.3 14.0-18.0 L [facility] CenterHematocrit2020-03-14 07:19:00* Test Item Value Reference Range Interpretation Comments Hematocrit (test code = 4544-3) 34.9 38.2-49.6 L [facility] CenterMean Corpuscular Ufuosp2977-45-36 07:19:00* Test Item Value Reference Range Interpretation Comments Mean Corpuscular Volume (test code = 787-2) 92.3 81-99 [facility] CenterMean Corpuscular Bphicudzsn7116-18-08 07:19:00* Test Item Value Reference Range Interpretation Comments Mean Corpuscular Hemoglobin (test code = 785-6) 29.9 28-32 [facility] CenterMean Corpuscular Hemoglobin Concent 2019-09-15 07:19:00* Test Item Value Reference Range Interpretation Comments Mean Corpuscular Hemoglobin Concent (test code = 786-4) 32.4 31-35 [facility] CenterRed Cell Distribution Fsjtw3367-61-94 07:19:00* Test Item Value Reference Range Interpretation Comments Red Cell Distribution Width (test code = 20756-1) 15.5 11.7 -14.4 H [facility] CenterPlatelet Mmbdd1328-43-41 07:19:00* Test Item Value Reference Range Interpretation Comments Platelet Count (test code = 777-3) 93 140-360 L [facility] CenterNeutrophils (%) (Auto)2019-09-15 07:19:00 * Test Item Value Reference Range Interpretation Comments Neutrophils (%) (Auto) (test code = 24366-3) 55.8 38.7-80.0 [facility] CenterLymphocytes (%) (Auto)2019-09-15 07:19:00 * Test Item Value Reference Range Interpretation Comments Lymphocytes (%) (Auto) (test code = 736-9) 27.5 18.0-39.1 [facility] CenterMonocytes (%) (Auto)2019-09-15 07:19:00* Test Item Value Reference Range Interpretation Comments Monocytes (%) (Auto) (test code = 5905-5) 13.1 4.4-11.3 H [facility] CenterEosinophils (%) (Auto)2019-09-15 07:19:00 * Test Item Value Reference Range Interpretation Comments Eosinophils (%) (Auto) (test code = 713-8) 2.7 0.0-6.0 [facility] CenterBasophils (%) (Auto)2019-09-15 07:19:00* Test Item Value Reference Range Interpretation Comments Basophils (%) (Auto) (test code = 706-2) 0.5 0.0-1.0 [facility] CenterIM GRANULOCYTES %2019-09-15 07:19:00* Test Item Value Reference Range Interpretation Comments IM GRANULOCYTES % (test code = IM GRANULOCYTES %) 0.4 0.0- 1.0 [facility] CenterNeutrophils # (Auto)2019-09-15 07:19:00* Test Item Value Reference Range Interpretation Comments Neutrophils # (Auto) (test code = 751-8) 3.1 2.1-6.9 [facility] CenterLymphocytes # (Auto)2019-09-15 07:19:00* Test Item Value Reference Range Interpretation Comments Lymphocytes # (Auto) (test code = 76187-9) 1.5 1.0-3.2 [facility] CenterMonocytes # (Auto)2019-09-15 07:19:00* Test Item Value Reference Range Interpretation Comments Monocytes # (Auto) (test code = 742-7) 0.7 0.2-0.8 [facility] CenterEosinophils # (Auto)2019-09-15 07:19:00* Test Item Value Reference Range Interpretation Comments Eosinophils # (Auto) (test code = 711-2) 0.2 0.0-0.4 [facility] CenterBasophils # (Auto)2019-09-15 07:19:00* Test Item Value Reference Range Interpretation Comments Basophils # (Auto) (test code = 704-7) 0.0 0.0-0.1 [facility] CenterAbsolute Immature Granulocyte (auto 2019-09-15 07:19:00* Test Item Value Reference Range Interpretation Comments Absolute Immature Granulocyte (auto (johnathan t code = Absolute Immature Granulocyte (auto) 0.02 0-0.1 [facility] CenterCreatine Kinase ZR3654-69-43 17:50:00* Test Item Value Reference Range Interpretation Comments Creatine Kinase MB (test code = 34876-6) 3.10 0-5.0 [facility] CenterTroponin M7208-86-34 17:50:00* Test Item Value Reference Range Interpretation Comments Troponin I (test code = NTU4172) 0.175 0-0.300 [facility] CenterCreatine Xzquqe4299-57-41 17:42:00* Test Item Value Reference Range Interpretation Comments Creatine Kinase (test code = 2157-6) 60 30-200 [facility] CenterTriglycerides Tfbuo9407-87-83 09:03:00* Test Item Value Reference Range Interpretation Comments Triglycerides Level (test code = 2571-8) 68 0-149 [facility] CenterCholesterol Eeubv6665-65-35 09:03:00* Test Item Value Reference Range Interpretation Comments Cholesterol Level (test code = 2093-3) 138 0-199 Less than 200 mg/dL Low Mgac278 - 239 mg/dL Borderline Lfmo793 m g/dl and greater High Risk [facility] CenterLDL Nqhtdcgwgbd1352-71-00 09:03:00* Test Item Value Reference Range Interpretation Comments LDL Cholesterol (test code = 2089-1) 95 60-130 [facility] CenterHDL Smxrohzmkno0543-69-32 09:03:00* Test Item Value Reference Range Interpretation Comments HDL Cholesterol (test code = 2085-9) 29 40-60 L [facility] CenterCholesterol/HDL Tdxfw6761-10-70 09:03:00 * Test Item Value Reference Range Interpretation Comments Cholesterol/HDL Ratio (test code = 9830-1) 4.8 3.9-4.7 H [facility] CenterPlatelet Svpylykm8900-69-53 08:52:00* Test Item Value Reference Range Interpretation Comments Platelet Estimate (test code = 82005-1) MODERATELY DECREASED [facility] CenterPlatelet Morphology Oqtkqep6967-79-82 08:52:00* Test Item Value Reference Range Interpretation Comments Platelet Morphology Comment (test code = 22973-1) NORMAL NO EDTA PLT CLUMPSSaint [facility]'s Round Rock Medical CenterRed Cell Morphology Oumjiux0072-09-44 08:52:00* Test Item Value Reference Range Interpretation Comments Red Cell Morphology Comment (test code = 6742-1) NORMAL [facility] CenterFree Thyroxine Yqasi7806-17-45 08:10:00* Test Item Value Reference Range Interpretation Comments Free Thyroxine Index (test code = 16821-2) 2.7369 1.4-3.8 [facility] CenterThyroxine (T4)2019-09-14 08:10:00* Test Item Value Reference Range Interpretation Comments Thyroxine (T4) (test code = 3026-2) 7.21 4.5-10.9 [facility] CenterTriiodothyronine (T3) Cgxijf2061-03-88 08:10:00* Test Item Value Reference Range Interpretation Comments Triiodothyronine (T3) Uptake (test code = 3050-2) 37.96 22.5 -37.0 H [facility] CenterThyroid Stimulating Hormone (TSH) 2019-09-14 08:10:00* Test Item Value Reference Range Interpretation Comments Thyroid Stimulating Hormone (TSH) (test code = 14063-6) 1.900 0.350-4.940 [facility] CenterMagnesium Pdsnb3051-14-08 06:38:00* Test Item Value Reference Range Interpretation Comments Magnesium Level (test code = 34973-1) 1.7 1.3-2.1 [facility] CenterTotal Ixtxpzpbi2600-20-97 06:38:00* Test Item Value Reference Range Interpretation Comments Total Bilirubin (test code = 1975-2) 0.7 0.2-1.2 [facility] CenterAspartate Amino Transf (AST/SGOT) 2019-09-14 06:38:00* Test Item Value Reference Range Interpretation Comments Aspartate Amino Transf (AST/SGOT) (test code = Aspartate Amino Transf (AST/SGOT)) 19 5-34 [facility] CenterAlanine Aminotransferase (ALT/SGPT) 2019-09-14 06:38:00* Test Item Value Reference Range Interpretation Comments Alanine Aminotransferase (ALT/SGPT) (test code = 1742-6) 17 0-55 [facility] CenterTotal Sjyyxdm9197-98-66 06:38:00* Test Item Value Reference Range Interpretation Comments Total Protein (test code = 2885-2) 6.1 6.5-8.1 L [facility] CenterAlbumin2020-03-13 06:38:00* Test Item Value Reference Range Interpretation Comments Albumin (test code = 1751-7) 3.6 3.5-5.0 [facility] CenterGlobulin2020-03-13 06:38:00* Test Item Value Reference Range Interpretation Comments Globulin (test code = 53021-9) 2.5 2.3-3.5 [facility] CenterAlbumin/Globulin Yhonx4055-17-85 06:38:00 * Test Item Value Reference Range Interpretation Comments Albumin/Globulin Ratio (test code = 1759-0) 1.4 0.8-2.0 [facility] CenterAlkaline Rfjoqcslbza8660-45-19 06:38:00* Test Item Value Reference Range Interpretation Comments Alkaline Phosphatase (test code = 6768-6) 94 40-150 [facility] CenterBlood platelets count by estimate (number/volume)2019-09-14 05:55:00* Test Item Value Reference Range Interpretation Comments Platelet Estimate (test code = 75606-4) MODERATELY DECREASED [facility] CenterRBC azdwomoqxk9155-71-89 05:55:00* Test Item Value Reference Range Interpretation Comments Red Cell Morphology Comment (test code = 6742-1) NORMAL [facility] magnesium measurement (mass/volume)2019-09-14 05:55:00* Test Item Value Reference Range Interpretation Comments Magnesium Level (test code = 85463-4) 1.7 1.3-2.1 [facility] Hospitalerum or plasma triglyceride measurement (mass/volume)2019-09-14 05:55:00* Test Item Value Reference Range Interpretation Comments Triglycerides Level (test code = 2571-8) 68 0-149 [facility] Hospitalerum or plasma cholesterol measurement (mass/volume)2019-09-14 05:55:00* Test Item Value Reference Range Interpretation Comments Cholesterol Level (test code = 2093-3) 138 0-199 Less than 200 mg/dL Low Ppnp741 - 239 mg/dL Borderline Dxzf862 m g/dl and greater High Risk [facility] Hospitalerum or plasma cholesterol in LDL measurement (mass/volume) 2019-09-14 05:55:00* Test Item Value Reference Range Interpretation Comments LDL Cholesterol (test code = 2089-1) 95 60-130 [facility] Hospitalerum or plasma cholesterol in HDL measurement (mass/volume)2019-09-14 05:55:00* Test Item Value Reference Range Interpretation Comments HDL Cholesterol (test code = 2085-9) 29 40-60 [facility] Hospitalerum or plasma total cholesterol/cholesterol in HDL mass uhfet6978-17-18 05:55:00* Test Item Value Reference Range Interpretation Comments Cholesterol/HDL Ratio (test code = 9830-1) 4.8 3.9-4.7 [facility] CenterFree thyroxine axhtu9371-23-21 05:55:00* Test Item Value Reference Range Interpretation Comments Free Thyroxine Index (test code = 19444-2) 2.7369 1.4-3.8 [facility] Hospitalerum or plasma thyroxine (T4) measurement (mass/volume)2019-09-14 05:55:00* Test Item Value Reference Range Interpretation Comments Thyroxine (T4) (test code = 3026-2) 7.21 4.5-10.9 [facility] Hospitalerum or plasma triiodothyronine resin uptake (T3RU)2019-09-14 05:55:00* Test Item Value Reference Range Interpretation Comments Triiodothyronine (T3) Uptake (test code = 3050-2) 37.96 22.5 -37.0 [facility] Hospitalerum or plasma thyrotropin measurement by detection limit <= 0.005 miu/l (units/volume)2019-09-14 05:55:00* Test Item Value Reference Range Interpretation Comments Thyroid Stimulating Hormone (TSH) (test code = 91738-7) 1.900 0.350-4.940 [facility] CenterB-Type Natriuretic Dhmftlp4853-89-91 17:25:00* Test Item Value Reference Range Interpretation Comments B-Type Natriuretic Peptide (test code = 99343-8) 549.6 0-100 H [facility] CenterUrine DSI5666-10-69 17:15:00* Test Item Value Reference Range Interpretation Comments Urine WBC (test code = 5821-4) NONE 0-5 [facility] CenterUrine XZC5831-54-91 17:15:00* Test Item Value Reference Range Interpretation Comments Urine RBC (test code = 37386-3) 0-5 0-5 [facility] CenterUrine Kiqgcbmk8374-91-22 17:15:00* Test Item Value Reference Range Interpretation Comments Urine Bacteria (test code = 39431-7) RARE NONE [facility] CenterUrine Epithelial Kxepl0246-56-76 17:15:00 * Test Item Value Reference Range Interpretation Comments Urine Epithelial Cells (test code = 51398-2) NONE NONE [facility] CenterProthrombin Shso3180-80-22 17:08:00* Test Item Value Reference Range Interpretation Comments Prothrombin Time (test code = 5902-2) 16.4 11.9-14.5 H [facility] CenterProthromb Time International Ratio 2019-09-13 17:08:00* Test Item Value Reference Range Interpretation Comments Prothromb Time International Ratio (test code = 6301-6) 1.24 Oral Anticoagulant Therapy INR Values:1. Low Intensity Therapy 1.5 - 2.02 . Moderate Intensity Therapy 2.0 - 3.03. High Intensity Therapy(1) 2.5 - 3. 54. High Intensity Therapy(2) 3.0 - 4.05. Panic Value INR > 5.0 [facility] CenterActivated Partial Thromboplast Time 2019-09-13 17:08:00* Test Item Value Reference Range Interpretation Comments Activated Partial Thromboplast Time (test code = 62206-6) 31.3 23.8-35.5 [facility] CenterUrine Lqwxs3100-29-83 17:05:00* Test Item Value Reference Range Interpretation Comments Urine Color (test code = 5778-6) YELLOW YELLOW [facility] CenterUrine Rmcvych1203-78-70 17:05:00* Test Item Value Reference Range Interpretation Comments Urine Clarity (test code = 61552-8) SL CLOUDY CLEAR H [facility] CenterUrine Specific Bqvuzeh5060-00-01 17:05:00 * Test Item Value Reference Range Interpretation Comments Urine Specific [place] (test code = 5811-5) 1.015 1.010-1.02 5 [facility] CenterUrine mH6388-63-23 17:05:00* Test Item Value Reference Range Interpretation Comments Urine pH (test code = 68515-8) 5 5-7 [facility]uk[facility] Jveownhb2237-87-96 17:05:00* Test Item Value Reference Range Interpretation Comments Urine Leukocyte Esterase (test code = 5799-2) NEGATIVE NEGATIVE [facility] Fhjgcka0293-62-47 17:05:00* Test Item Value Reference Range Interpretation Comments Urine Nitrite (test code = 39501-9) NEGATIVE NEGATIVE [facility] Lxyptgu8627-57-24 17:05:00* Test Item Value Reference Range Interpretation Comments Urine Protein (test code = 5804-0) TRACE NEGATIVE H [facility] Glucose (UA)2019-09-13 17:05:00* Test Item Value Reference Range Interpretation Comments Urine Glucose (UA) (test code = 2349-9) NEGATIVE NEGATIVE [facility] Tfkiaqc6125-93-51 17:05:00* Test Item Value Reference Range Interpretation Comments Urine Ketones (test code = 69448-9) NEGATIVE NEGATIVE [facility] Bsciezccncmm8365-33-76 17:05:00* Test Item Value Reference Range Interpretation Comments Urine Urobilinogen (test code = 83082-2) 0.2 0.2-1 [facility] Ragvypojo0933-63-31 17:05:00* Test Item Value Reference Range Interpretation Comments Urine Bilirubin (test code = 1978-6) NEGATIVE NEGATIVE [facility] Ryyvz4187-32-15 17:05:00* Test Item Value Reference Range Interpretation Comments Urine Blood (test code = 21166-9) TRACE NEGATIVE H [facility] CenterAct[facility] partial thromboplastin time (aPTT) in platelet poor plasma by coagulation bzmaz6509-15-27 16:28:00* Test Item Value Reference Range Interpretation Comments Activated Partial Thromboplast Time (test code = 02973-6) 31.3 23.8-35.5 [facility] ([facility])2019-09-13 16:19:00 [facility] [address] [place] [address] Patient Name: CORINA KAUFMAN MR #: [id number] : 1965 Age/Sex: 54/M Req #: [id number] Adm Physician: Ordered by: STACI GALEANA NP Report #: [id number] Location: ER Room/Bed: Procedure: [id number] DX /CHEST SINGLE (PORTABLE) Exam Date: Exam Time: REPORT STATUS: Signed EXAMINATION: CHEST SINGLE (PORTABLE) INDICATION: Chest pain COMPARISON : None FINDINGS: AP view Low lung volumes [...]
--- OUTSIDE RECORDS SUMMARY | 2020-05-08 17:27 | XMS REPORT | Continuity of Care Document ---
Author Author Formerly [facility] t Organization [facility] Address [address] [place] [address] Phone Unavailable Care Team Providers Care Print Manager Name Role Phone MD Davidson MICHEL PCP Denis GARDNER Attphys Unavailable Tristian RAMIREZ Attphys Unavailable Kamini DAVALOS Attphys Unavailable Davidson MICHEL Attphys Unavailable ADRIEL DEY Attphys Unavailable Davidson MICHEL Admphys Unavailable Payers Payer Name Policy Type Policy Number Effective Date Expiration Date Davidson Montes [place]ca [id number] [facility] Problems Condition Name Condition Details Condition Category Status Onset Date Resolution Date Last Treatment Date Treating Clinician Comments Source Acute on chronic congestive heart failure Problem Active [facility] Pulmonary edema Problem Active [facility] Allergies, Adverse Reactions, Alerts This patient has no known allergies or adverse reactions. Social History Social Habit Start Date Stop Date Quantity Comments Source Sex Assigned At 1965 00:00:00 1965 00:00:00 Male [facility] Medications Ordered Medication Name Filled Medication Name Start Date Stop Da te Current Medication? Ordering Clinician Indication Dosage Frequency Signature (SIG) Comments Components Source Furosemide (Lasix) 40 Mg TABLET Furosemide (Lasix) 40 Mg TAB LET 2020-02-25 16:52:00 Yes 40 Twice A Day [facility] Atorvastatin Calcium Atorvastatin Calcium Yes 10 Today At 9:00PM [facility] Furosemide Furosemide Yes 40 Twice A Day [facility] Metoprolol Tartrate Metoprolol Tartrate Yes 100 Daily [facility] Metoprolol Metoprolol 2019-10-01 00:00:00 No 100 Mary ly [facility] Vital Signs Vital Name Observation Time Observation Value Comments Source Weight 2020-02-25 14:01:00 207 [lb_av] [facility] BMI (Body Mass Index) 2020-02-25 14:01:00 33.4 kg/m2 [facility] Body Temperature 2019-10-06 23:55:00 97.9 [degF] [facility] Procedures Procedure Date / Time Performed Performing Clinician Sourc e US Gallbladder 2019-10-01 00:00:00 [facility] Ultrasound, renal 2019-10-01 00:00:00 [facility] CT of abdomen and pelvis without contrast 2019-09-30 00:00:00 [facility] Plan of Care Planned Activity Planned Date Details Comments Source Instructions Congestive Heart Failure [facility] Encounters Start Date/Time End Date/Time [facility] ID Source 2020-02-25 14:21:00 2020-02-25 17:08:00 Departed Emergency Room 1 JUAN ANTONIO RAMIREZ [facility] [id number] [facility] 2019-10-06 19:32:00 2019-10-07 00:20:00 Departed Emergency Room 1 ANOOP JENA [facility] [id number] [facility] 2019-09-30 13:43:00 2019-10-03 15:58:00 Discharged Inpatient (obs) 1 DELONTE MICHELAHAM [facility] [id number] [facility] 2019-09-13 16:49:00 2019-09-15 16:04:00 Discharged Inpatient (obs) 1 ADRIEL DEY [facility] [id number] [facility] Results Test Description Test Time Test Comments Results Result Comments Source CT BRAIN WO 2020-04-30 11:46:[address] [facility] [address] : 1965 Sex: M [facility] [address] [address] Patient Name: CORINA KAUFMAN MR #: [id number] : 1965 Age/Sex: 54/M Req #: [id number] Adm Physician: Ordered by: CHRISTAL GARDNER MD Report #: [id number] Location: Room/Bed: Procedure: [id number] CT/CT BRAIN WO Exam Date: 04/30/20 Exam [...] MD CHEST SINGLE (PORTABLE) 2020-04-30 11:41:[address] [facility] [address] : 1965 Sex: M [id number] [place] [address] Patient Name: CORINA KAUFMAN MR #: [id number] : 1965 Age/Sex: 54/M Req #: [id number] Adm Physician: Ordered by: CHRISTAL GARDNER MD Report #: [id number] Location: Room/Bed: Procedure: [id number] DX/CHEST SINGLE (PORTABLE) Exam Date: 04/30/20 Exam [...] GARDNER MD CHEST SINGLE (PORTABLE) 2020-02-25 15:43:00 [address] [place] [address] Patient Name: CORINA KAUFMAN MR #: [id number] : 1965 Age/Sex: 54/M Req #: [id number] Adm Physician: Ordered by: JUAN ANTONIO RAMIREZ MD Report #: [id number] Location: ER Room/Bed: Procedure: [id number] DX/CHEST SINGLE (PORTABLE) Exam Date: 02/25/20 Exam Time: 1415 REPORT STATUS: Signed TECHNIQUE: Frontal view of the chest. INDICATION: CP [id number] COMPARISON: 09/13/2019 DISCUSSION: Limited evaluation due [...] Time (test code = 5902-2) 16.3 11.9-14.5 [facility] CenterINR in Platelet poor plasma by Coagulation tcyif7339-12-85 14:36:00* Test Item Value Reference Range Interpretation Comments Prothromb Time International Ratio (test code = 6301-6) 1.24 Oral Anticoagulant Therapy INR Values:1. Low Intensity Therapy 1.5 - 2.02 . Moderate Intensity Therapy 2.0 - 3.03. High Intensity Therapy(1) 2.5 - 3. 54. High Intensity Therapy(2) 3.0 - 4.05. Panic Value INR > 5.0 [facility] CenterBlood leukocytes automated count (number/volume)2020-02-25 14:09:00* Test Item Value Reference Range Interpretation Comments White Blood Count (test code = 6690-2) 10.12 4.8-10.8 [facility] CenterBlood erythrocytes automated count (number/volume)2020-02-25 14:09:00* Test Item Value Reference Range Interpretation Comments Red Blood Count (test code = 789-8) 3.64 4.3-5.7 [facility]Bl[facility] hemoglobin measurement (moles/volume)2020-02-25 14:09:00* Test Item Value Reference Range Interpretation Comments Hemoglobin (test code = 81528-5) 11.1 14.0-18.0 [facility] CenterAutomated blood hematocrit (volume fraction)2020-02-25 14:09:00* Test Item Value Reference Range Interpretation Comments Hematocrit (test code = 4544-3) 35.1 38.2-49.6 [facility] CenterAutomated erythrocyte mean corpuscular wacnqc0000-11-04 14:09:00* Test Item Value Reference Range Interpretation Comments Mean Corpuscular Volume (test code = 787-2) 96.4 81-99 [facility] CenterAutomated erythrocyte mean corpuscular hemoglobin (mass per erythrocyte)2020-02-25 14:09:00* Test Item Value Reference Range Interpretation Comments Mean Corpuscular Hemoglobin (test code = 785-6) 30.5 28-32 [facility] CenterAutomated erythrocyte mean corpuscular hemoglobin concentration measurement (mass/volume)2020-02-25 14:09:00* Test Item Value Reference Range Interpretation Comments Mean Corpuscular Hemoglobin Concent (test code = 786-4) 31.6 31-35 [facility] CenterRDW YibJt-Wdl4050-46-24 14:09:00* Test Item Value Reference Range Interpretation Comments Red Cell Distribution Width (test code = 75043-7) 15.0 11.7 -14.4 [facility] CenterAutomated blood platelet count (count/volume)2020-02-25 14:09:00* Test Item Value Reference Range Interpretation Comments Platelet Count (test code = 777-3) 128 140-360 [facility] neutrophil count as percentage of total hokqsaytxk0506-54-07 14:09:00* Test Item Value Reference Range Interpretation Comments Neutrophils (%) (Auto) (test code = 34758-1) 54.6 38.7-80.0 [facility] CenterAutomated blood lymphocyte count as percentage ot total euuafkjwbx8583-01-72 14:09:00* Test Item Value Reference Range Interpretation Comments Lymphocytes (%) (Auto) (test code = 736-9) 31.9 18.0-39.1 [facility] CenterAutomated blood monocyte count as percentage of total luypnhuczn1504-16-39 14:09:00* Test Item Value Reference Range Interpretation Comments Monocytes (%) (Auto) (test code = 5905-5) 11.0 4.4-11.3 [facility] CenterAutomated blood eosinophil count as percentage of total dekhhpsifo8956-83-18 14:09:00* Test Item Value Reference Range Interpretation Comments Eosinophils (%) (Auto) (test code = 713-8) 1.7 0.0-6.0 [facility] CenterAutomated blood basophil count as percentage of total gwovqqykps8347-18-80 14:09:00* Test Item Value Reference Range Interpretation Comments Basophils (%) (Auto) (test code = 706-2) 0.5 0.0-1.0 [facility] CenterFluoroscopic procedure less than one hour vmjngfhx2205-19-37 14:09:00* Test Item Value Reference Range Interpretation Comments IM GRANULOCYTES % (test code = IM GRANULOCYTES %) 0.3 0.0- 1.0 [facility] CenterAutomated blood neutrophil count 2020-02-25 14:09:00* Test Item Value Reference Range Interpretation Comments Neutrophils # (Auto) (test code = 751-8) 5.5 2.1-6.9 [facility] CenterBlood lymphocytes count (number/volume) 2020-02-25 14:09:00* Test Item Value Reference Range Interpretation Comments Lymphocytes # (Auto) (test code = 83641-2) 3.2 1.0-3.2 [facility] CenterBlood monocytes automated count (number/volume)2020-02-25 14:09:00* Test Item Value Reference Range Interpretation Comments Monocytes # (Auto) (test code = 742-7) 1.1 0.2-0.8 [facility] CenterAutomated blood eosinophil count 2020-02-25 14:09:00* Test Item Value Reference Range Interpretation Comments Eosinophils # (Auto) (test code = 711-2) 0.2 0.0-0.4 [facility] CenterAutomated blood basophil count (count/volume)2020-02-25 14:09:00* Test Item Value Reference Range Interpretation Comments Basophils # (Auto) (test code = 704-7) 0.1 0.0-0.1 [facility] CenterFluoroscopic procedure less than one hour tbpxoszk6621-39-67 14:09:00* Test Item Value Reference Range Interpretation Comments Absolute Immature Granulocyte (auto (johnathan t code = Absolute Immature Granulocyte (auto) 0.03 0-0.1 [facility] CenterFibrin D-dimer DDU measurement in platelet poor plasma (mass/volume)2020-02-25 14:09:00* Test Item Value Reference Range Interpretation Comments D-Dimer Quantitative (PE/DVT) (test code = 58061-5) 762 0- 400 The Triage D-Dimer Test has not been evaluated for use as sole evidence for the presence or absence of PE or DVT. As with all in vitro diagnostic tests, the te st results should be interpreted by the physician in conjunction with clinical f indings and other test results.Test results are reported in D-dimer units.[facility] Hospitalerum or plasma sodium measurement (moles/volume)2020-02-25 14:09:00* Test Item Value Reference Range Interpretation Comments Sodium Level (test code = 2951-2) 137 136-145 [facility] Hospitalerum or plasma potassium measurement (moles/volume)2020-02-25 14:09:00* Test Item Value Reference Range Interpretation Comments Potassium Level (test code = 2823-3) 4.4 3.5-5.1 [facility] Hospitalerum or plasma chloride measurement (moles/volume)2020-02-25 14:09:00* Test Item Value Reference Range Interpretation Comments Chloride Level (test code = 2075-0) 104 98-107 [facility] Hospitalerum or plasma carbon dioxide, total measurement (moles/volume)2020-02-25 14:09:00* Test Item Value Reference Range Interpretation Comments Carbon Dioxide Level (test code = 2028-9) 21 22-29 [facility] Hospitalerum or plasma anion zkc6312-23-51 14:09:00* Test Item Value Reference Range Interpretation Comments Anion Gap (test code = 43589-4) 16.4 8-16 [facility] Hospitalerum or plasma urea nitrogen measurement (mass/volume)2020-02-25 14:09:00* Test Item Value Reference Range Interpretation Comments Blood Urea Nitrogen (test code = 3094-0) 55 7-26 [facility] Hospitalerum or plasma creatinine measurement (mass/volume)2020-02-25 14:09:00* Test Item Value Reference Range Interpretation Comments Creatinine (test code = 2160-0) 2.66 0.72-1.25 [facility] Hospitalerum or plasma urea nitrogen/creatinine mass atkwn3619-57-01 14:09:00* Test Item Value Reference Range Interpretation Comments BUN/Creatinine Ratio (test code = 3097-3) 21 6-25 [facility] CenterEstimated glomerular filtration rate (GFR) cdrqgznsbrcni5708-79-99 14:09:00* Test Item Value Reference Range Interpretation Comments Estimat Glomerular Filtration Rate (test code = 199248562) 25 >60 Ranges were taken from the National Kidney Disease Education Program and the [facility] literature.Reference ranges:60 or greater: Cwcita69-53 ( for 3 consecutive months): Chronic kidney disease 15 or less: Kidney failureTexoma Medical CenterGlucose qfbrjeozndu8999-95-57 14:09:00* Test Item Value Reference Range Interpretation Comments Glucose Level (test code = PHX1542) 95 74-118 [facility] Hospitalerum or plasma calcium measurement (mass/volume)2020-02-25 14:09:00* Test Item Value Reference Range Interpretation Comments Calcium Level (test code = 84693-2) 9.3 8.4-10.2 [facility] Hospitalerum or plasma total bilirubin measurement (mass/volume)2020-02-25 14:09:00* Test Item Value Reference Range Interpretation Comments Total Bilirubin (test code = 1975-2) 0.9 0.2-1.2 [facility] CenterFluoroscopic procedure less than one hour kgiogotw0142-21-02 14:09:00* Test Item Value Reference Range Interpretation Comments Aspartate Amino Transf (AST/SGOT) (test code = Aspartate Amino Transf (AST/SGOT)) 23 5-34 [facility] Hospitalerum or plasma alanine aminotransferase measurement (enzymatic activity/volume)2020-02-25 14:09:00* Test Item Value Reference Range Interpretation Comments Alanine Aminotransferase (ALT/SGPT) (test code = 1742-6) 24 0-55 [facility] Hospitalerum or plasma protein measurement (mass/volume)2020-02-25 14:09:00* Test Item Value Reference Range Interpretation Comments Total Protein (test code = 2885-2) 7.3 6.5-8.1 [facility] Hospitalerum or plasma albumin measurement (mass/volume)2020-02-25 14:09:00* Test Item Value Reference Range Interpretation Comments Albumin (test code = 1751-7) 3.8 3.5-5.0 [facility] CenterPlasma globulin measurement (mass/volume) 2020-02-25 14:09:00* Test Item Value Reference Range Interpretation Comments Globulin (test code = 76593-1) 3.5 2.3-3.5 [facility] Hospitalerum or plasma albumin/globulin mass jvpcb9543-25-64 14:09:00* Test Item Value Reference Range Interpretation Comments Albumin/Globulin Ratio (test code = 1759-0) 1.1 0.8-2.0 [facility] Hospitalerum or plasma alkaline phosphatase measurement (enzymatic activity/volume)2020-02-25 14:09:00* Test Item Value Reference Range Interpretation Comments Alkaline Phosphatase (test code = 6768-6) 107 40-150 [facility] CenterBNP Sdf-xYgk0456-47-24 14:09:00* Test Item Value Reference Range Interpretation Comments B-Type Natriuretic Peptide (test code = 64352-7) 983.7 0-100 [facility] Hospitalerum or plasma creatine kinase measurement (enzymatic activity/volume)2020-02-25 14:09:00* Test Item Value Reference Range Interpretation Comments Creatine Kinase (test code = 2157-6) 99 30-200 [facility] Hospitalerum or plasma creatine kinase MB measurement (mass/volume)2020-02-25 14:09:00* Test Item Value Reference Range Interpretation Comments Creatine Kinase MB (test code = 55141-5) 5.30 0-5.0 [facility] CenterTroponin I measurement by highly sensitive enzyme ulnlgjgnzlj2230-80-97 14:09:00* Test Item Value Reference Range Interpretation Comments Troponin I (test code = 62819-9) 0.270 0-0.300 [facility] CenterABDOMEN 2 AIWD6809-85-95 23:11:00 [facility] [address] [place] [address] Patient Name: CORINA KAUFMAN MR #: [id number] : 1965 Age/Sex: 54/M Req #: [id number] Adm Physician: Ordered by: STACI GALEANA FOOT DRILL OPERATOR Report #: [id number] Location: ER Room/Bed: Procedure: [id number] DX /ABDOMEN 2 VIEW Exam Date: 10/06/19 Exam Time: 2240 REPORT STATUS: Signed [facility]. CPT 60030 CLINICAL HISTORY: Pain TECHNIQUE: Flat and upright [...] COPY TO: STACI GALEANA NP Urine color koquuuibsttjr2609-07-97 21:10:00* Test Item Value Reference Range Interpretation Comments Urine Color (test code = 5778-6) YELLOW YELLOW [facility] CenterUrine sqfhgqo4456-83-28 21:10:00* Test Item Value Reference Range Interpretation Comments Urine Clarity (test code = 64582-7) CLEAR CLEAR [facility] Hospitalpecific gravity of Urine by Test strip 2019-10-06 21:10:00* Test Item Value Reference Range Interpretation Comments Urine Specific [place] (test code = 5811-5) 1.020 1.010-1.02 5 [facility] CenterUrine pH measurement by automated test cdpuu2612-32-07 21:10:00* Test Item Value Reference Range Interpretation Comments Urine pH (test code = 12641-2) 6 5-7 [facility] CenterUrine leukocyte esterase detection by jiroueek2457-38-80 21:10:00* Test Item Value Reference Range Interpretation Comments Urine Leukocyte Esterase (test code = 5799-2) NEGATIVE NEGATIVE [facility] CenterUrine nitrite oqtimxgxw8962-30-24 21:10:00* Test Item Value Reference Range Interpretation Comments Urine Nitrite (test code = 58643-5) NEGATIVE NEGATIVE [facility] CenterUrine protein measurement by test strip (mass/volume)2019-10-06 21:10:00* Test Item Value Reference Range Interpretation Comments Urine Protein (test code = 5804-0) 1+ NEGATIVE [facility] CenterUrine glucose eeiuglhhq6481-06-84 21:10:00* Test Item Value Reference Range Interpretation Comments Urine Glucose (UA) (test code = 2349-9) NEGATIVE NEGATIVE [facility] CenterUrine ketones detection by automated test czgjz6360-76-10 21:10:00* Test Item Value Reference Range Interpretation Comments Urine Ketones (test code = 50545-2) NEGATIVE NEGATIVE [facility] CenterUrine urobilinogen measurement by test strip (mass/volume)2019-10-06 21:10:00* Test Item Value Reference Range Interpretation Comments Urine Urobilinogen (test code = 54039-4) 0.2 0.2-1 [facility] CenterUrine total bilirubin measurement (mass/volume)2019-10-06 21:10:00* Test Item Value Reference Range Interpretation Comments Urine Bilirubin (test code = 1978-6) NEGATIVE NEGATIVE [facility] CenterUrine erythrocytes vwddltjsr0975-56-06 21:10:00* Test Item Value Reference Range Interpretation Comments Urine Blood (test code = 22256-7) 1+ NEGATIVE [facility] CenterAutomated urine sediment leukocyte count by microscopy (number/high power field)2019-10-06 21:10:00* Test Item Value Reference Range Interpretation Comments Urine WBC (test code = 5821-4) 6-10 0-5 [facility] CenterErythrocytes detection in urine sediment by light iwuzrmwsdm5327-94-19 21:10:00* Test Item Value Reference Range Interpretation Comments Urine RBC (test code = 32017-4) 6-10 0-5 [facility] CenterBacteria detection in urine sediment by light ksmliiwvpz7045-94-28 21:10:00* Test Item Value Reference Range Interpretation Comments Urine Bacteria (test code = 24179-9) RARE NONE [facility] CenterEpithelial cells detection in urine sediment by light pfsixxfhwa8647-25-06 21:10:00* Test Item Value Reference Range Interpretation Comments Urine Epithelial Cells (test code = 10696-0) FEW NONE [facility] CenterPlatelet keybuavlpp7621-44-01 20:34:00* Test Item Value Reference Range Interpretation Comments Platelet Morphology Comment (test code = 09565-1) See Comment NO EDTA PLT CLUMPS SEENTexoma Medical CenterUS RENAL RETROPERITONEAL TNVX7771-96-16 19:42:00 [facility] [address] [place] [address] Patient Name: CORINA KAUFMAN MR #: [id number] : 1965 Age/Sex: 54/M Req #: [id number] [facility] Physician: ALBERTO MICHEL MD Ordered by: LING GARSIA MD, MD Report #: [id number] Location: [facility] Room/Bed: [facility] Procedure: [id number] U S/US RENAL RETROPERITONEAL COMP Exam Date: [...] COPY TO : LING GARSIA HEPTOBILIARY W BEMQB2538-81-57 17:21:[address] [address] Patient Name: CORINA KAUFMAN MR #: [id number] : 1965 Age/Sex: 54/M Req #: [id number] [facility] Physician: ALBERTO MICHEL MD Ordered by: ARAM TERRAZAS MD Report #: [id number] Location: [facility] Room/Bed: [facility] Procedure: [id number] NM/ HEPTOBILIARY W PHARM Exam Date: 10/01/19 [...] Protein (test code = 2888-6) 36.1 1-14 [facility] CenterUrine creatinine measurement (mass/volume)2019-10-01 13:50:00* Test Item Value Reference Range Interpretation Comments Urine Creatinine (test code = 2161-8) 65.16 63-166 [facility] CenterRandom urine protein/creatinine ratio 2019-10-01 13:50:00* Test Item Value Reference Range Interpretation Comments Urine Protein/Creatinine Ratio (test code = 92988-6) 0.00 [facility] CenterUS THTHXVDXBMD5858-06-60 09:47:00 [facility] [address] [place] [address] Patient Name: CORINA KAUFMAN MR #: [id number] : 1965 Age/Sex: 54/M Req #: [id number] Adm Physician: ALBERTO MICHEL MD Ordered by: ARAM TERRAZAS MD Report #: [id number] Location: MED/SURG3 Room/Bed: [facility] Procedure: [id number] US/ US GALLBLADDER Exam Date: 10/01/19 Exam [...] Acid (test code = 3084-1) 12.9 4.8-8.0 [facility] CenterCT ABDOMEN/PELVIS ME0460-88-20 12:58:00 [place] [address] Patient Name: CORINA KAUFMAN MR #: [id number] : [birth year] Age/Sex: 54/M Req #: [id number] Adm Physician: Ordered by: STACI GALEANA FOOT DRILL OPERATOR Report #: [id number] Location: Room/Bed: Procedure: [id number] CT /CT ABDOMEN/PELVIS WO Exam Date: Exam [...] MD 27 Transcribed By: NAHED on 09/30/198 SENIOR UI DEVELOPER Y TO: STACI GALEANA FOOT DRILL OPERATOR Sodium Cabcu4973-38-52 07:29:00* Test Item Value Reference Range Interpretation Comments Sodium Level (test code = 2951-2) 141 136-145 [facility] CenterPotassium Uebsa0166-42-75 07:29:00* Test Item Value Reference Range Interpretation Comments Potassium Level (test code = 2823-3) 3.7 3.5-5.1 [facility] CenterChloride Ulrtb7147-82-68 07:29:00* Test Item Value Reference Range Interpretation Comments Chloride Level (test code = 2075-0) 104 98-107 [facility] CenterCarbon Dioxide Tzcby2816-80-88 07:29:00* Test Item Value Reference Range Interpretation Comments Carbon Dioxide Level (test code = 2028-9) 32 22-29 H [facility] CenterAnion Vwm5953-88-93 07:29:00* Test Item Value Reference Range Interpretation Comments Anion Gap (test code = 43312-9) 8.7 8-16 [facility] CenterBlood Urea Grsfzzzx4416-31-96 07:29:00* Test Item Value Reference Range Interpretation Comments Blood Urea Nitrogen (test code = 3094-0) 20 7-26 [facility] CenterCreatinine2020-03-14 07:29:00* Test Item Value Reference Range Interpretation Comments Creatinine (test code = 2160-0) 1.31 0.72-1.25 H [facility] CenterBUN/Creatinine Bvzqf9151-84-91 07:29:00* Test Item Value Reference Range Interpretation Comments BUN/Creatinine Ratio (test code = 3097-3) 15 6-25 [facility] CenterEstimat Glomerular Filtration Rate 2019-09-15 07:29:00* Test Item Value Reference Range Interpretation Comments Estimat Glomerular Filtration Rate (test code = 961568175) 57 >60 L Ranges were taken from the National Kidney Disease Education Program and the [facility] Kidney Foundation literature.Reference ranges:60 or greater: Ofnjxs22-31 ( for 3 consecutive months): Chronic kidney disease 15 or less: Kidney failureTexoma Medical CenterGlucose Jnmee5784-43-11 07:29:00* Test Item Value Reference Range Interpretation Comments Glucose Level (test code = EMW6949) 84 74-118 [facility] CenterCalcium Hfrrm5946-76-79 07:29:00* Test Item Value Reference Range Interpretation Comments Calcium Level (test code = 26128-7) 9.1 8.4-10.2 [facility] CenterWhite Blood Ujobu6503-54-57 07:19:00* Test Item Value Reference Range Interpretation Comments White Blood Count (test code = 6690-2) 5.50 4.8-10.8 [facility] CenterRed Blood Mivyd8793-64-46 07:19:00* Test Item Value Reference Range Interpretation Comments Red Blood Count (test code = 789-8) 3.78 4.3-5.7 L [facility] CenterHemoglobin2020-03-14 07:19:00* Test Item Value Reference Range Interpretation Comments Hemoglobin (test code = 31548-8) 11.3 14.0-18.0 L [facility] CenterHematocrit2020-03-14 07:19:00* Test Item Value Reference Range Interpretation Comments Hematocrit (test code = 4544-3) 34.9 38.2-49.6 L [facility] CenterMean Corpuscular Yqxxho7976-25-75 07:19:00* Test Item Value Reference Range Interpretation Comments Mean Corpuscular Volume (test code = 787-2) 92.3 81-99 [facility]Mean Corpuscular Uerxthacdi4510-87-61 07:19:00* Test Item Value Reference Range Interpretation Comments Mean Corpuscular Hemoglobin (test code = 785-6) 29.9 28-32 [facility] CenterMean Corpuscular Hemoglobin Concent 2019-09-15 07:19:00* Test Item Value Reference Range Interpretation Comments Mean Corpuscular Hemoglobin Concent (test code = 786-4) 32.4 31-35 [facility] CenterRed Cell Distribution Pvwop2880-43-80 07:19:00* Test Item Value Reference Range Interpretation Comments Red Cell Distribution Width (test code = 91691-9) 15.5 11.7 -14.4 H [facility] CenterPlatelet Fvfyp9828-85-13 07:19:00* Test Item Value Reference Range Interpretation Comments Platelet Count (test code = 777-3) 93 140-360 L [facility] CenterNeutrophils (%) (Auto)2019-09-15 07:19:00 * Test Item Value Reference Range Interpretation Comments Neutrophils (%) (Auto) (test code = 76435-5) 55.8 38.7-80.0 [facility] CenterLymphocytes (%) (Auto)2019-09-15 07:19:00 * Test Item Value Reference Range Interpretation Comments Lymphocytes (%) (Auto) (test code = 736-9) 27.5 18.0-39.1 [facility] CenterMonocytes (%) (Auto)2019-09-15 07:19:00* Test Item Value Reference Range Interpretation Comments Monocytes (%) (Auto) (test code = 5905-5) 13.1 4.4-11.3 H [facility] CenterEosinophils (%) (Auto)2019-09-15 07:19:00 * Test Item Value Reference Range Interpretation Comments Eosinophils (%) (Auto) (test code = 713-8) 2.7 0.0-6.0 [facility] CenterBasophils (%) (Auto)2019-09-15 07:19:00* Test Item Value Reference Range Interpretation Comments Basophils (%) (Auto) (test code = 706-2) 0.5 0.0-1.0 [facility] CenterIM GRANULOCYTES %2019-09-15 07:19:00* Test Item Value Reference Range Interpretation Comments IM GRANULOCYTES % (test code = IM GRANULOCYTES %) 0.4 0.0- 1.0 [facility] CenterNeutrophils # (Auto)2019-09-15 07:19:00* Test Item Value Reference Range Interpretation Comments Neutrophils # (Auto) (test code = 751-8) 3.1 2.1-6.9 [facility] CenterLymphocytes # (Auto)2019-09-15 07:19:00* Test Item Value Reference Range Interpretation Comments Lymphocytes # (Auto) (test code = 36916-1) 1.5 1.0-3.2 [facility] CenterMonocytes # (Auto)2019-09-15 07:19:00* Test Item Value Reference Range Interpretation Comments Monocytes # (Auto) (test code = 742-7) 0.7 0.2-0.8 [facility] CenterEosinophils # (Auto)2019-09-15 07:19:00* Test Item Value Reference Range Interpretation Comments Eosinophils # (Auto) (test code = 711-2) 0.2 0.0-0.4 [facility] CenterBasophils # (Auto)2019-09-15 07:19:00* Test Item Value Reference Range Interpretation Comments Basophils # (Auto) (test code = 704-7) 0.0 0.0-0.1 [facility] CenterAbsolute Immature Granulocyte (auto 2019-09-15 07:19:00* Test Item Value Reference Range Interpretation Comments Absolute Immature Granulocyte (auto (johnathan t code = Absolute Immature Granulocyte (auto) 0.02 0-0.1 [facility] CenterCreatine Kinase [id number] 17:50:00* Test Item Value Reference Range Interpretation Comments Creatine Kinase MB (test code = 30646-2) 3.10 0-5.0 [facility] CenterTroponin [id number] 17:50:00* Test Item Value Reference Range Interpretation Comments Troponin I (test code = OHY7031) 0.175 0-0.300 [facility] CenterCreatine Ttexzm6863-24-54 17:42:00* Test Item Value Reference Range Interpretation Comments Creatine Kinase (test code = 2157-6) 60 30-200 [facility] CenterTriglycerides Mehaj9726-68-38 09:03:00* Test Item Value Reference Range Interpretation Comments Triglycerides Level (test code = 2571-8) 68 0-149 [facility] CenterCholesterol Orhbp8858-18-23 09:03:00* Test Item Value Reference Range Interpretation Comments Cholesterol Level (test code = 2093-3) 138 0-199 Less than 200 mg/dL Low Iyxt999 - 239 mg/dL Borderline Xkaf626 m g/dl and greater High Risk [facility] CenterLDL Iovijmpoucx1517-78-08 09:03:00* Test Item Value Reference Range Interpretation Comments LDL Cholesterol (test code = 2089-1) 95 60-130 [facility] CenterHDL Clczvabletz7751-51-42 09:03:00* Test Item Value Reference Range Interpretation Comments HDL Cholesterol (test code = 2085-9) 29 40-60 L [facility] CenterCholesterol/HDL Fwzvu9982-72-77 09:03:00 * Test Item Value Reference Range Interpretation Comments Cholesterol/HDL Ratio (test code = 9830-1) 4.8 3.9-4.7 H [facility] CenterPlatelet Vknttjkt7915-30-06 08:52:00* Test Item Value Reference Range Interpretation Comments Platelet Estimate (test code = 94868-3) MODERATELY DECREASED [facility] CenterPlatelet Morphology Kpwelkr8023-67-93 08:52:00* Test Item Value Reference Range Interpretation Comments Platelet Morphology Comment (test code = 65399-1) NORMAL NO EDTA PLT CLUMPSTexoma Medical CenterRed Cell Morphology Zogsowo7473-55-88 08:52:00* Test Item Value Reference Range Interpretation Comments Red Cell Morphology Comment (test code = 6742-1) NORMAL [facility] CenterFree Thyroxine Mgjxu0433-65-83 08:10:00* Test Item Value Reference Range Interpretation Comments Free Thyroxine Index (test code = 18510-7) 2.7369 1.4-3.8 [facility] CenterThyroxine (T4)2019-09-14 08:10:00* Test Item Value Reference Range Interpretation Comments Thyroxine (T4) (test code = 3026-2) 7.21 4.5-10.9 [facility] CenterTriiodothyronine (T3) Iwyrsx4293-82-42 08:10:00* Test Item Value Reference Range Interpretation Comments Triiodothyronine (T3) Uptake (test code = 3050-2) 37.96 22.5 -37.0 H [facility] CenterThyroid Stimulating Hormone (TSH) 2019-09-14 08:10:00* Test Item Value Reference Range Interpretation Comments Thyroid Stimulating Hormone (TSH) (test code = 32489-8) 1.900 0.350-4.940 [facility] CenterMagnesium Vlfod3374-70-26 06:38:00* Test Item Value Reference Range Interpretation Comments Magnesium Level (test code = 69015-0) 1.7 1.3-2.1 [facility] CenterTotal Ewtyetlem6019-15-14 06:38:00* Test Item Value Reference Range Interpretation Comments Total Bilirubin (test code = 1975-2) 0.7 0.2-1.2 [facility] CenterAspartate Amino Transf (AST/SGOT) 2019-09-14 06:38:00* Test Item Value Reference Range Interpretation Comments Aspartate Amino Transf (AST/SGOT) (test code = Aspartate Amino Transf (AST/SGOT)) 19 5-34 [facility] CenterAlanine Aminotransferase (ALT/SGPT) 2019-09-14 06:38:00* Test Item Value Reference Range Interpretation Comments Alanine Aminotransferase (ALT/SGPT) (test code = 1742-6) 17 0-55 [facility] CenterTotal Qzhgkjc4322-97-30 06:38:00* Test Item Value Reference Range Interpretation Comments Total Protein (test code = 2885-2) 6.1 6.5-8.1 L [facility] CenterAlbumin2020-03-13 06:38:00* Test Item Value Reference Range Interpretation Comments Albumin (test code = 1751-7) 3.6 3.5-5.0 [facility] CenterGlobulin2020-03-13 06:38:00* Test Item Value Reference Range Interpretation Comments Globulin (test code = 46177-7) 2.5 2.3-3.5 [facility] CenterAlbumin/Globulin Vvlvq2134-26-06 06:38:00 * Test Item Value Reference Range Interpretation Comments Albumin/Globulin Ratio (test code = 1759-0) 1.4 0.8-2.0 [facility] CenterAlkaline Rcboregysks2428-54-40 06:38:00* Test Item Value Reference Range Interpretation Comments Alkaline Phosphatase (test code = 6768-6) 94 40-150 [facility] CenterBlood platelets count by estimate (number/volume)2019-09-14 05:55:00* Test Item Value Reference Range Interpretation Comments Platelet Estimate (test code = 57282-4) MODERATELY DECREASED [facility] CenterRBC ydkvfspqjt0488-98-98 05:55:00* Test Item Value Reference Range Interpretation Comments Red Cell Morphology Comment (test code = 6742-1) NORMAL [facility] magnesium measurement (mass/volume)2019-09-14 05:55:00* Test Item Value Reference Range Interpretation Comments Magnesium Level (test code = 80084-2) 1.7 1.3-2.1 [facility] Hospitalerum or plasma triglyceride measurement (mass/volume)2019-09-14 05:55:00* Test Item Value Reference Range Interpretation Comments Triglycerides Level (test code = 2571-8) 68 0-149 [facility] Hospitalerum or plasma cholesterol measurement (mass/volume)2019-09-14 05:55:00* Test Item Value Reference Range Interpretation Comments Cholesterol Level (test code = 2093-3) 138 0-199 Less than 200 mg/dL Low Gyln737 - 239 mg/dL Borderline Lpyn079 m g/dl and greater High Risk [facility] Hospitalerum [facility] plasma cholesterol in LDL measurement (mass/volume) 2019-09-14 05:55:00* Test Item Value Reference Range Interpretation Comments LDL Cholesterol (test code = 2089-1) 95 60-130 [facility] Hospitalerum or plasma cholesterol in HDL measurement (mass/volume)2019-09-14 05:55:00* Test Item Value Reference Range Interpretation Comments HDL Cholesterol (test code = 2085-9) 29 40-60 [facility] Hospitalerum or plasma total cholesterol/cholesterol in HDL mass nrphr2501-87-26 05:55:00* Test Item Value Reference Range Interpretation Comments Cholesterol/HDL Ratio (test code = 9830-1) 4.8 3.9-4.7 [facility] CenterFree thyroxine jqbiy3161-28-32 05:55:00* Test Item Value Reference Range Interpretation Comments Free Thyroxine Index (test code = 13266-9) 2.7369 1.4-3.8 [facility] Hospitalerum or plasma thyroxine (T4) measurement (mass/volume)2019-09-14 05:55:00* Test Item Value Reference Range Interpretation Comments Thyroxine (T4) (test code = 3026-2) 7.21 4.5-10.9 [facility] Hospitalerum or plasma triiodothyronine resin uptake (T3RU)2019-09-14 05:55:00* Test Item Value Reference Range Interpretation Comments Triiodothyronine (T3) Uptake (test code = 3050-2) 37.96 22.5 -37.0 [facility] Hospitalerum or plasma thyrotropin measurement by detection limit <= 0.005 miu/l (units/volume)2019-09-14 05:55:00* Test Item Value Reference Range Interpretation Comments Thyroid Stimulating Hormone (TSH) (test code = 78555-7) 1.900 0.350-4.940 [facility] CenterB-Type Natriuretic Enyvijp1744-28-89 17:25:00* Test Item Value Reference Range Interpretation Comments B-Type Natriuretic Peptide (test code = 37252-2) 549.6 0-100 H [facility] CenterUrine [id number] 17:15:00* Test Item Value Reference Range Interpretation Comments Urine WBC (test code = 5821-4) NONE 0-5 [facility] CenterUrine [id number] 17:15:00* Test Item Value Reference Range Interpretation Comments Urine RBC (test code = 73934-4) 0-5 0-5 [facility] CenterUrine Wsrznzqw7821-48-88 17:15:00* Test Item Value Reference Range Interpretation Comments Urine Bacteria (test code = 99496-0) RARE NONE [facility] CenterUrine Epithelial Daexz6363-14-26 17:15:00 * Test Item Value Reference Range Interpretation Comments Urine Epithelial Cells (test code = 27879-0) NONE NONE [facility] CenterProthrombin Ptqy6818-44-54 17:08:00* Test Item Value Reference Range Interpretation Comments Prothrombin Time (test code = 5902-2) 16.4 11.9-14.5 H [facility] CenterProthromb Time International Ratio 2019-09-13 17:08:00* Test Item Value Reference Range Interpretation Comments Prothromb Time International Ratio (test code = 6301-6) 1.24 Oral Anticoagulant Therapy INR Values:1. Low Intensity Therapy 1.5 - 2.02 . Moderate Intensity Therapy 2.0 - 3.03. High Intensity Therapy(1) 2.5 - 3. 54. High Intensity Therapy(2) 3.0 - 4.05. Panic Value INR > 5.0 [facility] CenterActivated Partial Thromboplast Time 2019-09-13 17:08:00* Test Item Value Reference Range Interpretation Comments Activated Partial Thromboplast Time (test code = 91828-2) 31.3 23.8-35.5 [facility] CenterUrine Jnrrm4075-53-17 17:05:00* Test Item Value Reference Range Interpretation Comments Urine Color (test code = 5778-6) YELLOW YELLOW [facility] CenterUrine Uzcguhk9543-29-60 17:05:00* Test Item Value Reference Range Interpretation Comments Urine Clarity (test code = 90393-3) SL CLOUDY CLEAR H [facility] CenterUrine Specific Qbeeeek8113-34-24 17:05:00 * Test Item Value Reference Range Interpretation Comments Urine Specific [place] (test code = 5811-5) 1.015 1.010-1.02 5 [facility] CenterUrine [id number] 17:05:00* Test Item Value Reference Range Interpretation Comments Urine pH (test code = 32794-9) 5 5-7 [facility] CenterUrine Leukocyte Hiaapbzn4423-16-77 17:05:00* Test Item Value Reference Range Interpretation Comments Urine Leukocyte Esterase (test code = 5799-2) NEGATIVE NEGATIVE [facility] CenterUrine Rtnsrjt2269-98-55 17:05:00* Test Item Value Reference Range Interpretation Comments Urine Nitrite (test code = 34189-6) NEGATIVE NEGATIVE [facility] CenterUrine Pujlmft4762-69-32 17:05:00* Test Item Value Reference Range Interpretation Comments Urine Protein (test code = 5804-0) TRACE NEGATIVE H [facility] CenterUrine Glucose (UA)2019-09-13 17:05:00* Test Item Value Reference Range Interpretation Comments Urine Glucose (UA) (test code = 2349-9) NEGATIVE NEGATIVE [facility] CenterUrine Rqrjarb3620-32-01 17:05:00* Test Item Value Reference Range Interpretation Comments Urine Ketones (test code = 96237-3) NEGATIVE NEGATIVE [facility] CenterUrine Bfrszpukwcdp2588-26-87 17:05:00* Test Item Value Reference Range Interpretation Comments Urine Urobilinogen (test code = 13949-9) 0.2 0.2-1 [facility] CenterUrine Pcvduyiqk5298-76-06 17:05:00* Test Item Value Reference Range Interpretation Comments Urine Bilirubin (test code = 1978-6) NEGATIVE NEGATIVE [facility] CenterU[facility] Rqzjz0937-98-44 17:05:00* Test Item Value Reference Range Interpretation Comments Urine Blood (test code = 36972-5) TRACE NEGATIVE H [facility] CenterActivated partial thromboplastin time (aPTT) in platelet poor plasma by coagulation hbsrv8177-31-05 16:28:00* Test Item Value Reference Range Interpretation Comments Activated Partial Thromboplast Time (test code = 28575-9) 31.3 23.8-35.5 [facility] CenterCHEST SINGLE (PORTABLE)2019-09-13 16:19:00 [facility] [address] [place] [address] Patient Name: CORINA KAUFMAN MR #: [id number] : 1965 Age/Sex: 54/M Req #: [id number] Adm Physician: Ordered by: STACI GALEANA NP Report #: [id number] Location: ER Room/Bed: Procedure: [id number] DX /CHEST SINGLE (PORTABLE) Exam Date: Exam [...]
== END 2020-05-02 14:29 | disposition home or self-care (01) ==
LOC: ER 11:00 → ERHOLD 13:19 → MED/SURG2 18:48
PROVIDERS: ADMIT Family Medicine; ATTEND Family Medicine
DX: G51.0 Bell's palsy (principal); J90 Pleural effusion, not elsewhere classified; N17.9 Acute kidney failure, unspecified; E87.5 Hyperkalemia; K70.30 Alcoholic cirrhosis of liver without ascites; E11.21 Type 2 diabetes mellitus with diabetic nephropathy; E11.22 Type 2 diabetes mellitus with diabetic chronic kidney disease; E87.2 Acidosis; R13.10 Dysphagia, unspecified; I50.9 Heart failure, unspecified; N18.4 Chronic kidney disease, stage 4 (severe); Z11.59 Encounter for screening for other viral diseases
CPT/HCPCS: 36415; 70450; 71045; 80053; 81001; 82550; 82553; 82948; 83880; 84100; 84484; 85025; 85610; 85730; 87086; 93005; 99284; G0378; J7030; J7040

== ENCOUNTER 2020-06-26 11:00 | Inpatient (IN) | payer SELFPAY ==
[~2020-06-26] VITALS: Ht 167.6 cm; Wt 72.4 kg
[2020-06-26 11:35] LABS: BASOPHILS % 0.4 % (0.0-1.0); EOSINOPHILS # (AUTO) 0.1 (0.0-0.4); EOSINOPHILS % 1.6 % (0.0-6.0); HEMATOCRIT 36.8 % (38.2-49.6); LYMPHOCYTES % 37.4 % (18.0-39.1); MEAN CORPUSCULAR HEMOGLOBIN 30.7 pg (28-32); MEAN CORPUSCULAR HGB CONC 32.6 g/dL (31-35); MEAN CORPUSCULAR VOLUME 94.1 fL (81-99); MONOCYTES # (AUTO) 0.9 (0.2-0.8); MONOCYTES % 10.7 % (4.4-11.3); NEUTROPHILS % 49.7 % (38.7-80.0); PLATELET COUNT 98 x10e3/uL (140-360); RED BLOOD COUNT 3.91 x10e6/uL (4.3-5.7); RED CELL DISTRIBUTION WIDTH 15.3 % (11.7-14.4)
[2020-06-26 11:46] LABS: INR 1.25; PROTHROMBIN TIME 16.3 seconds (11.9-14.5)
[2020-06-26 11:47] LABS: PARTIAL THROMBOPLASTIN TIME 31.4 seconds (23.8-35.5)
[2020-06-26 11:58] LABS: ALBUMIN 3.9 g/dL (3.5-5.0); ALBUMIN/GLOBULIN RATIO 1.1 (0.8-2.0); ANION GAP 21.7 mmol/L (8-16); CALCIUM 9.1 mg/dL (8.4-10.2); CREATININE, SERUM 6.21 mg/dL (0.72-1.25); MAGNESIUM 2.6 MG/DL (1.3-2.1); POTASSIUM 4.7 mmol/L (3.5-5.1)
[2020-06-26 12:05] LABS: CREATINE KINASE MB 8.2 ng/mL (0-5.0)
[2020-06-26] MEDS ORDERED: HEPARIN 25,000 UNIT 900 UNIT in DEXTROSE 5% 250ML 250 ML IV SCH (13:00)
[2020-06-26] MEDS ORDERED: HEPARIN SOD (PORCINE) 5,000 UNIT/ML VIAL IV NR (13:00)
[2020-06-26] MEDS ORDERED: FUROSEMIDE INJ 10 MG/ML 4 ML VIAL IV ONE (13:15)
[2020-06-26] MEDS ORDERED: ASPIRIN 81 MG CHEW TAB PO ONE (13:15)
[2020-06-26] MEDS ORDERED: HEPARIN SOD (PORCINE) 1000 UNIT/ML SDV ONE (16:21)
[2020-06-26] MEDS ORDERED: LIDOCAINE HCL 1% LOCAL INJ 20 ML VIAL ONE (16:27)
[2020-06-26] MEDS ORDERED: HEPARIN SOD (PORCINE) 1000 UNIT/ML SDV IV PRN (18:15)
[2020-06-26] MEDS ORDERED: MANNITOL 25% 12.5GM/50 ML VIAL IV PRN (18:15)
[2020-06-26] MEDS ORDERED: SODIUM CHLORIDE 0.9% 1000ML 2,000 ML IV PRN (18:15)
[2020-06-26] MEDS ORDERED: MANNITOL 25% 12.5GM/50ML 100 ML ONE (18:17)
[2020-06-26 19:03] LABS: CLARITY,URINE SL CLOUDY (CLEAR); COLOR,URINE YELLOW (YELLOW); KETONES,URINE NEGATIVE (NEGATIVE); LEUKOCYTE ESTERASE ,URINE NEGATIVE (NEGATIVE); NITRITE,URINE NEGATIVE (NEGATIVE); PROTEIN,URINE DIPSTICK 2+ (NEGATIVE); URINE UROBILINOGEN 0.2 mg/dL (0.2 - 1)
[2020-06-26 19:16] LABS: BACTERIA,URINE FEW /HPF
[2020-06-26 19:22] LABS: SODIUM,URINE 38 mmol/L
[2020-06-26 19:43] LABS: CREATINE KINASE MB 10.2 ng/mL (0-5.0)
[2020-06-26 20:00] VITALS: BP_SYST 114; BP_SYST 130; BP_DIAS 64; BP_DIAS 75
[2020-06-26] MEDS: FUROSEMIDE INJ 10 MG/ML 4 ML VIAL IV SCH (21:35)
[2020-06-27] VITALS (8 sets, daily range): BP systolic 93–115; BP diastolic 62–83
[2020-06-27] MEDS: FUROSEMIDE INJ 10 MG/ML 4 ML VIAL IV SCH ×3 (05:07→20:57)
[2020-06-27 05:15] LABS: BASOPHILS % 0.6 % (0.0-1.0); EOSINOPHILS % 0.6 % (0.0-6.0); HEMATOCRIT 34.2 % (38.2-49.6); HEMOGLOBIN 11.3 g/dL (14.0-18.0); LYMPHOCYTES # (AUTO) 1.4 (1.0-3.2); LYMPHOCYTES % 19.4 % (18.0-39.1); MEAN CORPUSCULAR HEMOGLOBIN 30.9 pg (28-32); MEAN CORPUSCULAR VOLUME 93.4 fL (81-99); MONOCYTES # (AUTO) 0.8 (0.2-0.8); MONOCYTES % 11.3 % (4.4-11.3); NEUTROPHILS # (AUTO) 4.8 (2.1-6.9); PLATELET COUNT 70 x10e3/uL (140-360); RED BLOOD COUNT 3.66 x10e6/uL (4.3-5.7); RED CELL DISTRIBUTION WIDTH 15.3 % (11.7-14.4)
[2020-06-27 05:39] LABS: ALBUMIN 3.8 g/dL (3.5-5.0); ALBUMIN/GLOBULIN RATIO 1.2 (0.8-2.0); ANION GAP 20.7 mmol/L (8-16); CALCIUM 8.9 mg/dL (8.4-10.2); CREATININE, SERUM 4.82 mg/dL (0.72-1.25); POTASSIUM 4.7 mmol/L (3.5-5.1)
[2020-06-27 05:44] LABS: CREATINE KINASE MB 12.4 ng/mL (0-5.0)
[2020-06-27 05:50] LABS: MAGNESIUM 2.4 MG/DL (1.3-2.1)
[2020-06-27] MEDS: METOPROLOL SUCCINATE 25 MG TAB XL PO SCH ×2 (08:15→16:09)
[2020-06-27] MEDS: ASPIRIN 81 MG CHEW TAB PO SCH (08:15)
[2020-06-27] MEDS: HEPARIN 25,000 UNIT 900 UNIT in DEXTROSE 5% 250ML 250 ML IV SCH (10:25)
[2020-06-27 14:48] LABS: CREATINE KINASE MB 17.2 ng/mL (0-5.0)
[2020-06-27] MEDS: ATORVASTATIN 10 MG TAB PO SCH (20:57)
[2020-06-28] VITALS (7 sets, daily range): BP systolic 94–123; BP diastolic 70–106
[2020-06-28 05:52] LABS: CALCIUM 9.2 mg/dL (8.4-10.2); CREATININE, SERUM 5.19 mg/dL (0.72-1.25)
[2020-06-28] MEDS: FUROSEMIDE INJ 10 MG/ML 4 ML VIAL IV SCH ×3 (06:14→21:39)
[2020-06-28] MEDS: METOPROLOL SUCCINATE 25 MG TAB XL PO SCH ×2 (09:00→17:00)
[2020-06-28] MEDS: ASPIRIN 81 MG CHEW TAB PO SCH (09:37)
[2020-06-28] MEDS: HEPARIN 25,000 UNIT 900 UNIT in DEXTROSE 5% 250ML 250 ML IV SCH (10:39)
[2020-06-28] MEDS ORDERED: SODIUM CHLORIDE 0.9% 250ML 500 ML IV PRN (15:00)
[2020-06-28] MEDS: ATORVASTATIN 10 MG TAB PO SCH (21:39)
[2020-06-29] VITALS (9 sets, daily range): BP systolic 91–110; BP diastolic 67–83
[2020-06-29] MEDS: FUROSEMIDE INJ 10 MG/ML 4 ML VIAL IV SCH ×3 (05:25→22:35)
[2020-06-29] MEDS: METOPROLOL SUCCINATE 25 MG TAB XL PO SCH ×2 (08:32→16:49)
[2020-06-29] MEDS: ASPIRIN 81 MG CHEW TAB PO SCH (08:32)
[2020-06-29] MEDS: HEPARIN 25,000 UNIT 900 UNIT in DEXTROSE 5% 250ML 250 ML IV SCH (16:49)
[2020-06-29] MEDS: ATORVASTATIN 10 MG TAB PO SCH (20:38)
[2020-06-30] VITALS (7 sets, daily range): BP systolic 92–118; BP diastolic 57–76
[2020-06-30] MEDS: FUROSEMIDE INJ 10 MG/ML 4 ML VIAL IV SCH ×3 (05:32→22:00)
[2020-06-30 06:00] LABS: BASOPHILS # (AUTO) 0.1 (0.0-0.1); BASOPHILS % 0.6 % (0.0-1.0); EOSINOPHILS # (AUTO) 0.1 (0.0-0.4); EOSINOPHILS % 1.2 % (0.0-6.0); HEMATOCRIT 32.4 % (38.2-49.6); HEMOGLOBIN 10.5 g/dL (14.0-18.0); LYMPHOCYTES # (AUTO) 2.1 (1.0-3.2); LYMPHOCYTES % 27.5 % (18.0-39.1); MEAN CORPUSCULAR HEMOGLOBIN 31.1 pg (28-32); MEAN CORPUSCULAR HGB CONC 32.4 g/dL (31-35); MEAN CORPUSCULAR VOLUME 95.9 fL (81-99); MONOCYTES # (AUTO) 0.9 (0.2-0.8); MONOCYTES % 12.2 % (4.4-11.3); NEUTROPHILS # (AUTO) 4.5 (2.1-6.9); NEUTROPHILS % 58.2 % (38.7-80.0); PLATELET COUNT 65 x10e3/uL (140-360); RED BLOOD COUNT 3.38 x10e6/uL (4.3-5.7); RED CELL DISTRIBUTION WIDTH 15.6 % (11.7-14.4)
[2020-06-30 07:05] LABS: ANION GAP 21.4 mmol/L (8-16); CALCIUM 8.9 mg/dL (8.4-10.2); CREATININE, SERUM 4.49 mg/dL (0.72-1.25); POTASSIUM 4.4 mmol/L (3.5-5.1)
[2020-06-30] MEDS: METOPROLOL SUCCINATE 25 MG TAB XL PO SCH ×2 (09:00→17:00)
[2020-06-30] MEDS ORDERED: HEPARIN SOD (PORCINE) 1000 UNIT/ML SDV IV PRN (09:15)
[2020-06-30] MEDS ORDERED: SODIUM CHLORIDE 0.9% 250ML 500 ML IV PRN (09:15)
[2020-06-30] MEDS ORDERED: SODIUM CHLORIDE 0.9% 1000ML 2,000 ML IV PRN (09:15)
[2020-06-30] MEDS ORDERED: MANNITOL 25% 12.5GM/50 ML VIAL IV PRN (09:15)
[2020-06-30] MEDS: ASPIRIN 81 MG CHEW TAB PO SCH (12:39)
[2020-06-30] MEDS ORDERED: DEXTROSE 50% SYRINGE 50 ML IV ONE (12:49)
[2020-06-30] MEDS ORDERED: SODIUM CHLORIDE FLUSH 10 ML SYR ONE (12:49)
[2020-06-30] MEDS ORDERED: EPINEPHRINE HCL SYRINGE ONE (12:49)
[2020-06-30] MEDS: CLOTRIMAZOLE 10 MG TAB PO SCH ×3 (13:00→21:00)
[2020-06-30] MEDS: HEPARIN 25,000 UNIT 900 UNIT in DEXTROSE 5% 250ML 250 ML IV SCH (18:18)
[2020-06-30] MEDS ORDERED: DEXTROSE 50% SYRINGE 50 ML IV STA (19:32)
[2020-06-30] MEDS ORDERED: DEXTROSE 5%/0.45% SOD CHL 1,000 ML IV ONE (19:45)
[2020-06-30] MEDS: ATORVASTATIN 10 MG TAB PO SCH (21:00)
[2020-07-01] VITALS (9 sets, daily range): BP systolic 80–142; BP diastolic 50–84
[2020-07-01] MEDS: CLOTRIMAZOLE 10 MG TAB PO SCH ×5 (05:00→22:09)
[2020-07-01] MEDS: FUROSEMIDE INJ 10 MG/ML 4 ML VIAL IV SCH (06:00)
[2020-07-01 06:18] LABS: BASOPHILS % 0.6 % (0.0-1.0); EOSINOPHILS # (AUTO) 0.1 (0.0-0.4); EOSINOPHILS % 1.2 % (0.0-6.0); HEMATOCRIT 33.6 % (38.2-49.6); HEMOGLOBIN 10.7 g/dL (14.0-18.0); LYMPHOCYTES # (AUTO) 1.8 (1.0-3.2); LYMPHOCYTES % 25.9 % (18.0-39.1); MEAN CORPUSCULAR HEMOGLOBIN 30.7 pg (28-32); MEAN CORPUSCULAR HGB CONC 31.8 g/dL (31-35); MEAN CORPUSCULAR VOLUME 96.6 fL (81-99); MONOCYTES # (AUTO) 0.9 (0.2-0.8); PLATELET COUNT 54 x10e3/uL (140-360); RED BLOOD COUNT 3.48 x10e6/uL (4.3-5.7); RED CELL DISTRIBUTION WIDTH 15.9 % (11.7-14.4)
[2020-07-01 07:08] LABS: ALBUMIN 3.7 g/dL (3.5-5.0); ALBUMIN/GLOBULIN RATIO 1.3 (0.8-2.0); ANION GAP 17.3 mmol/L (8-16); CALCIUM 8.8 mg/dL (8.4-10.2); CREATININE, SERUM 3.58 mg/dL (0.72-1.25); POTASSIUM 4.3 mmol/L (3.5-5.1)
[2020-07-01 07:23] LABS: INR 1.15; PROTHROMBIN TIME 15.3 seconds (11.9-14.5)
[2020-07-01] MEDS: ASPIRIN 81 MG CHEW TAB PO SCH (08:17)
[2020-07-01] MEDS: METOPROLOL SUCCINATE 25 MG TAB XL PO SCH (11:45)
[2020-07-01] MEDS ORDERED: MIDAZOLAM HCL 2 MG/2 ML VIAL ONE ×2 (12:34→12:44)
[2020-07-01] MEDS ORDERED: HEPARIN SOD (PORCINE) 1000 UNIT/ML SDV ONE (12:34)
[2020-07-01] MEDS ORDERED: FENTANYL CITRATE/PF 100MCG/2 ML INJ ONE (12:35)
[2020-07-01] MEDS ORDERED: SUCCINYLCHOLINE CHLORIDE 20 MG/ML 10ML VIAL ONE (12:44)
[2020-07-01] MEDS ORDERED: ETOMIDATE 2 MG/ML 10 ML INJ IV ONE (12:44)
[2020-07-01] MEDS ORDERED: SODIUM CHLORIDE 0.9% 250ML 250 ML ONE (12:46)
[2020-07-01] MEDS ORDERED: CEFAZOLIN SOD 1 GM/NS 50ML 50 ML IV ONE (13:26)
[2020-07-01] MEDS: PYRIDOSTIGMINE BROMIDE 60 MG TAB PO SCH ×2 (15:00→21:00)
[2020-07-01] MEDS: FUROSEMIDE 40 MG TAB PO SCH (18:00)
[2020-07-01] MEDS: HEPARIN 25,000 UNIT 900 UNIT in DEXTROSE 5% 250ML 250 ML IV SCH (19:30)
[2020-07-01] MEDS: ATORVASTATIN 10 MG TAB PO SCH (21:00)
[2020-07-02] VITALS (9 sets, daily range): BP systolic 82–120; BP diastolic 50–90
[2020-07-02 05:10] LABS: BASOPHILS % 0.5 % (0.0-1.0); EOSINOPHILS # (AUTO) 0.1 (0.0-0.4); EOSINOPHILS % 0.9 % (0.0-6.0); HEMATOCRIT 35.8 % (38.2-49.6); HEMOGLOBIN 11.5 g/dL (14.0-18.0); LYMPHOCYTES # (AUTO) 1.8 (1.0-3.2); LYMPHOCYTES % 21.3 % (18.0-39.1); MEAN CORPUSCULAR HEMOGLOBIN 31.2 pg (28-32); MEAN CORPUSCULAR HGB CONC 32.1 g/dL (31-35); MONOCYTES # (AUTO) 1.1 (0.2-0.8); MONOCYTES % 13.7 % (4.4-11.3); NEUTROPHILS # (AUTO) 5.2 (2.1-6.9); NEUTROPHILS % 63.2 % (38.7-80.0); PLATELET COUNT 59 x10e3/uL (140-360); RED BLOOD COUNT 3.69 x10e6/uL (4.3-5.7)
[2020-07-02 05:28] LABS: ALBUMIN 3.7 g/dL (3.5-5.0); ALBUMIN/GLOBULIN RATIO 1.2 (0.8-2.0); ANION GAP 20.4 mmol/L (8-16); CALCIUM 9.2 mg/dL (8.4-10.2); CREATININE, SERUM 4.11 mg/dL (0.72-1.25); POTASSIUM 4.4 mmol/L (3.5-5.1)
[2020-07-02] MEDS: FUROSEMIDE 40 MG TAB PO SCH ×2 (05:45→16:32)
[2020-07-02] MEDS: CLOTRIMAZOLE 10 MG TAB PO SCH ×5 (05:45→20:52)
[2020-07-02] MEDS: ASPIRIN 81 MG CHEW TAB PO SCH (08:25)
[2020-07-02] MEDS: PYRIDOSTIGMINE BROMIDE 60 MG TAB PO SCH ×3 (08:25→21:00)
[2020-07-02] MEDS: METOPROLOL SUCCINATE 25 MG TAB XL PO SCH (09:00)
[2020-07-02] MEDS: ALBUMIN 25% 12.5GM 0.25 GM/ML BTL IV PRN (10:09)
[2020-07-02] MEDS: DEXTROSE 50% SYRINGE 50 ML IV PRN (15:20)
[2020-07-02] MEDS: HEPARIN 25,000 UNIT 900 UNIT in DEXTROSE 5% 250ML 250 ML IV SCH (17:30)
[2020-07-02] MEDS: ATORVASTATIN 10 MG TAB PO SCH (20:52)
[2020-07-03] VITALS (66 sets, daily range): BP systolic 34–151; BP diastolic 20–108
[2020-07-03] MEDS: CLOTRIMAZOLE 10 MG TAB PO SCH ×5 (04:12→20:17)
[2020-07-03] MEDS: FUROSEMIDE 40 MG TAB PO SCH ×2 (04:35→18:27)
[2020-07-03 06:31] LABS: BASOPHILS % 0.5 % (0.0-1.0); EOSINOPHILS % 0.5 % (0.0-6.0); HEMATOCRIT 32.6 % (38.2-49.6); HEMOGLOBIN 10.5 g/dL (14.0-18.0); LYMPHOCYTES # (AUTO) 1.5 (1.0-3.2); LYMPHOCYTES % 19.3 % (18.0-39.1); MEAN CORPUSCULAR HEMOGLOBIN 31.1 pg (28-32); MEAN CORPUSCULAR HGB CONC 32.2 g/dL (31-35); MEAN CORPUSCULAR VOLUME 96.4 fL (81-99); MONOCYTES % 13.6 % (4.4-11.3); NEUTROPHILS % 65.8 % (38.7-80.0); PLATELET COUNT 53 x10e3/uL (140-360); RED BLOOD COUNT 3.38 x10e6/uL (4.3-5.7); RED CELL DISTRIBUTION WIDTH 16.1 % (11.7-14.4)
[2020-07-03 07:00] LABS: ALBUMIN 3.7 g/dL (3.5-5.0); ALBUMIN/GLOBULIN RATIO 1.2 (0.8-2.0); CREATININE, SERUM 3.21 mg/dL (0.72-1.25)
[2020-07-03] MEDS ORDERED: HEPARIN SOD/SOD CHLORIDE 2,000 ML ONE (07:12)
[2020-07-03] MEDS ORDERED: IOPAMIDOL 370 MG/ML 200 ML INFUS..BTL INJ ONE (07:12)
[2020-07-03] MEDS ORDERED: LIDOCAINE HCL 2% LOCAL 20 ML VIAL ONE (07:12)
[2020-07-03] MEDS ORDERED: SODIUM CHLORIDE 0.9% 1000ML 1,000 ML ONE (07:13)
[2020-07-03] MEDS ORDERED: NITROGLYCERIN/D5W 200 MCG/ML 250 ML ONE (07:13)
[2020-07-03] MEDS: HEPARIN 25,000 UNIT 900 UNIT in DEXTROSE 5% 250ML 250 ML IV SCH ×2 (07:15→18:33)
[2020-07-03] MEDS ORDERED: MIDAZOLAM HCL 2 MG/2 ML VIAL ONE (07:19)
[2020-07-03] MEDS ORDERED: FENTANYL CITRATE/PF 100MCG/2 ML INJ ONE (07:20)
[2020-07-03] MEDS ORDERED: HEPARIN SOD (PORCINE) 1000 UNIT/ML 30ML ONE (07:21)
[2020-07-03] MEDS ORDERED: METOPROLOL TARTRATE INJ 1 MG/ML VIAL ONE (08:35)
[2020-07-03] MEDS: PYRIDOSTIGMINE BROMIDE 60 MG TAB PO SCH ×3 (09:00→20:17)
[2020-07-03] MEDS: ASPIRIN 81 MG CHEW TAB PO SCH (09:00)
[2020-07-03] MEDS: PROPOFOL IV EMULSION 10MG/ML 100 ML IV SCH ×3 (09:30→22:40)
[2020-07-03] MEDS: NOREPINEPHRINE 8 MG/D5W 250 ML 250 ML IV SCH ×2 (09:45→14:00)
[2020-07-03] MEDS ORDERED: METOPROLOL TARTRATE INJ 1 MG/ML VIAL IV ONE ×2 (10:15→14:15)
[2020-07-03] MEDS ORDERED: LIDOCAINE HCL 1% LOCAL INJ 20 ML VIAL ONE (10:15)
[2020-07-03] MEDS: VASOPRESSIN 60 UNIT in DEXTROSE 5% 50ML 57 ML IV SCH (10:45)
[2020-07-03 11:03] LABS: ABG PCO2 53 mmHg (35-45); ABG PH 7.23 (7.35-7.45); ABG PO2 123 mmHg (80-105)
[2020-07-03 11:04] LABS: ABG HCO3 22 mmol/L (22-26); ABG TCO2 24
[2020-07-03 11:06] LABS: ABG HCO3 26 mmol/L (22-26); ABG PCO2 43 mmHg (35-45); ABG PH 7.38 (7.35-7.45); ABG PO2 300 mmHg (80-105); ABG TCO2 27
[2020-07-03] MEDS: DEXTROSE 50% SYRINGE 50 ML IV PRN (11:08)
[2020-07-03] MEDS ORDERED: MIDAZOLAM HCL 2 MG/2 ML VIAL IV ONE (11:15)
[2020-07-03] MEDS ORDERED: DIGOXIN INJ 0.25 MG/ML 2 ML AMP IV PRN (16:30)
[2020-07-03 16:59] LABS: ANION GAP 21.2 mmol/L (8-16); CALCIUM 9.1 mg/dL (8.4-10.2); CREATININE, SERUM 3.6 mg/dL (0.72-1.25); POTASSIUM 4.2 mmol/L (3.5-5.1)
[2020-07-03] MEDS: ALBUMIN 25% 12.5GM 0.25 GM/ML BTL IV PRN (18:33)
[2020-07-03] MEDS: ATORVASTATIN 10 MG TAB PO SCH (20:17)
[2020-07-03 21:26] LABS: ABG PCO2 42 mmHg (35-45); ABG PH 7.39 (7.35-7.45); ABG PO2 117 mmHg (80-105)
[2020-07-03 21:27] LABS: ABG HCO3 26 mmol/L (22-26); ABG TCO2 27
[2020-07-04] VITALS (8 sets, daily range): BP systolic 90–105; BP diastolic 73–84
[2020-07-04] MEDS: NOREPINEPHRINE 8 MG/D5W 250 ML 250 ML IV SCH (03:31)
[2020-07-04] MEDS: VASOPRESSIN 60 UNIT in DEXTROSE 5% 50ML 57 ML IV SCH (03:32)
[2020-07-04] MEDS: CLOTRIMAZOLE 10 MG TAB PO SCH ×3 (05:15→13:43)
[2020-07-04] MEDS: PROPOFOL IV EMULSION 10MG/ML 100 ML IV SCH (05:16)
[2020-07-04] MEDS: FUROSEMIDE 40 MG TAB PO SCH ×2 (05:16→13:43)
[2020-07-04 05:33] LABS: BASOPHILS # (AUTO) 0.1 (0.0-0.1); BASOPHILS % 0.5 % (0.0-1.0); EOSINOPHILS % 0.3 % (0.0-6.0); HEMATOCRIT 34.8 % (38.2-49.6); HEMOGLOBIN 11.3 g/dL (14.0-18.0); LYMPHOCYTES % 14.8 % (18.0-39.1); MEAN CORPUSCULAR HEMOGLOBIN 31.1 pg (28-32); MEAN CORPUSCULAR HGB CONC 32.5 g/dL (31-35); MEAN CORPUSCULAR VOLUME 95.9 fL (81-99); MONOCYTES # (AUTO) 1.4 (0.2-0.8); MONOCYTES % 10.6 % (4.4-11.3); NEUTROPHILS # (AUTO) 9.7 (2.1-6.9); NEUTROPHILS % 73.3 % (38.7-80.0); PLATELET COUNT 58 x10e3/uL (140-360); RED BLOOD COUNT 3.63 x10e6/uL (4.3-5.7); RED CELL DISTRIBUTION WIDTH 16.4 % (11.7-14.4)
[2020-07-04 05:58] LABS: ALBUMIN 3.5 g/dL (3.5-5.0); ALBUMIN/GLOBULIN RATIO 1.3 (0.8-2.0); ANION GAP 18.3 mmol/L (8-16); CALCIUM 8.9 mg/dL (8.4-10.2); CREATININE, SERUM 3.9 mg/dL (0.72-1.25); POTASSIUM 4.3 mmol/L (3.5-5.1)
[2020-07-04] MEDS ORDERED: AMIODARONE HCL 150 MG/100 ML BAG IV ONE (09:15)
[2020-07-04] MEDS ORDERED: AMIODARONE HCL 900 MG in DEXTROSE 5% 500ML 500 ML IV ONE (09:30)
[2020-07-04] MEDS ORDERED: DIGOXIN INJ 0.25 MG/ML 2 ML AMP ONE (12:59)
[2020-07-04] MEDS: ASPIRIN 81 MG CHEW TAB PO SCH (13:17)
[2020-07-04] MEDS: PYRIDOSTIGMINE BROMIDE 60 MG TAB PO SCH ×2 (13:17→13:43)
[2020-07-04] MEDS ORDERED: METHYLPREDNISOLONE SOD SUCC 40 MG/ML VIAL 1ML IV SCH (14:00)
[2020-07-04 14:21] LABS: BODY FLUID TYPE ASPIRATE
[2020-07-04 14:22] LABS: BODY FLUID APPEARANCE SL.CLOUDY; BODY FLUID COLOR YELLOW
[2020-07-04] MEDS ORDERED: VANCOMYCIN 1GM/NS 250 ML 250 ML IV ONE (14:30)
[2020-07-04] MEDS ORDERED: ACETAMINOPHEN 325 MG/10 ML UDC NG PRN (14:30)
[2020-07-04 14:42] LABS: RBC,BODY FLUID 7425 cells/uL; WBC,BODY FLUID 550 cells/uL
[2020-07-04] MEDS ORDERED: LORAZEPAM INJ 2 MG/ML VIAL IV PRN (15:15)
[2020-07-04] MEDS ORDERED: MORPHINE SULFATE INJ 4 MG/ML INJ 1ML IV PRN (15:15)
[2020-07-04 15:41] LABS: EOSINOPHILS,BODY FLUID 1 %; LYMPHOCYTES,BODY FLUID 12 %; MONO/MACROPHG,BODY FLUID 12 %; NEUTROPHILS,BODY FLUID 75 %
[2020-07-04] MEDS ORDERED: MEROPENEM 500MG 500 MG in SODIUM CHLORIDE 0.9% 50ML 50 ML IV SCH (21:00)
== END 2020-07-04 19:56 | disposition expired ==
LOC: ER 11:36 → ERHOLD 13:02 → MED/SURG2 17:44 → ICU 07-03 22:22
PROVIDERS: ADMIT Family Medicine; ATTEND Family Medicine
PROC: 02HV33Z Insertion of Infusion Device into Superior Vena Cava, Percutaneous Approach (ICD-10-PCS; 2020-06-26)
PROC: B548ZZA Ultrasonography of Superior Vena Cava, Guidance (ICD-10-PCS; 2020-06-26)
PROC: 5A1D70Z Performance of Urinary Filtration, Intermittent, Less than 6 Hours Per Day (ICD-10-PCS; 2020-06-26)
PROC: 5A1D70Z Performance of Urinary Filtration, Intermittent, Less than 6 Hours Per Day (ICD-10-PCS; 2020-06-28)
PROC: 5A1D70Z Performance of Urinary Filtration, Intermittent, Less than 6 Hours Per Day (ICD-10-PCS; 2020-06-30)
PROC: 02PY33Z Removal of Infusion Device from Great Vessel, Percutaneous Approach (ICD-10-PCS; 2020-07-01)
PROC: 02HV33Z Insertion of Infusion Device into Superior Vena Cava, Percutaneous Approach (ICD-10-PCS; 2020-07-01)
PROC: 0JH63XZ Insertion of Tunneled Vascular Access Device into Chest Subcutaneous Tissue and Fascia, Percutaneous Approach (ICD-10-PCS; 2020-07-01)
PROC: 4A023N7 Measurement of Cardiac Sampling and Pressure, Left Heart, Percutaneous Approach (ICD-10-PCS; principal; 2020-07-03)
PROC: B2111ZZ Fluoroscopy of Multiple Coronary Arteries using Low Osmolar Contrast (ICD-10-PCS; 2020-07-03)
PROC: B2151ZZ Fluoroscopy of Left Heart using Low Osmolar Contrast (ICD-10-PCS; 2020-07-03)
PROC: 5A1945Z Respiratory Ventilation, 24-96 Consecutive Hours (ICD-10-PCS; 2020-07-03)
PROC: 0BH17EZ Insertion of Endotracheal Airway into Trachea, Via Natural or Artificial Opening (ICD-10-PCS; 2020-07-03)
PROC: 02HV33Z Insertion of Infusion Device into Superior Vena Cava, Percutaneous Approach (ICD-10-PCS; 2020-07-03)
PROC: B548ZZA Ultrasonography of Superior Vena Cava, Guidance (ICD-10-PCS; 2020-07-03)
PROC: 0W9930Z Drainage of Right Pleural Cavity with Drainage Device, Percutaneous Approach (ICD-10-PCS; 2020-07-03)
PROC: 5A1D70Z Performance of Urinary Filtration, Intermittent, Less than 6 Hours Per Day (ICD-10-PCS; 2020-07-03)
DX: I13.2 Hypertensive heart and chronic kidney disease with heart failure and with stage 5 chronic kidney disease, or end stage renal disease (principal); I21.4 Non-ST elevation (NSTEMI) myocardial infarction; N18.6 End stage renal disease; I50.23 Acute on chronic systolic (congestive) heart failure; K76.7 Hepatorenal syndrome; J96.01 Acute respiratory failure with hypoxia; N17.9 Acute kidney failure, unspecified; E87.1 Hypo-osmolality and hyponatremia; R57.0 Cardiogenic shock; I48.91 Unspecified atrial fibrillation; Z82.49 Family history of ischemic heart disease and other diseases of the circulatory system; E11.22 Type 2 diabetes mellitus with diabetic chronic kidney disease; D64.9 Anemia, unspecified; E78.5 Hyperlipidemia, unspecified; K74.60 Unspecified cirrhosis of liver; R13.10 Dysphagia, unspecified; E83.39 Other disorders of phosphorus metabolism; E11.649 Type 2 diabetes mellitus with hypoglycemia without coma; R47.1 Dysarthria and anarthria
CPT/HCPCS: 31500; 36415; 36556; 36558; 36600; 70551; 71045; 74470; 76705; 76770; 76937; 76942; 77001; 80048; 80053; 81001; 82140; 82164; 82550; 82553; 82570; 82805; 82948; 83519; 83615; 83735; 83874; 83880; 84100; 84157; 84300; 84443; 84484; 84550; 85025; 85610; 85730; 86021; 86039; 86235; 86255; 86706; 87040; 87070; 87086; 87205; 87340; 89051; 90962; 92950; 93005; 93306; 93458; 94002; 94003; 96360; 96361; 99152; 99153; 99284; C1752; C1760; C1769; C1892; J0171; J0330; J0690; J1160; J1644; J1940; J2001; J2150; J2250; J2920; J3010; J7030; J7050; J7060; J7799; Q9967; U0002